=== PATIENT | female | born 1935 ===

== ENCOUNTER 2017-11-22 18:33 | Inpatient (IN) | payer MEDICARE ==
[2017-11-22 18:34] VITALS: BMI 31.2
[2017-11-22] MEDS ORDERED: Sodium Chloride 0.9% 1,000 ML IV ONE (19:29)
[2017-11-22 19:39] LABS: BASO # 0.2 K/uL (0.0-0.2); BASO % 2.7 % (0.0-2.0); EOS % 0.1 % (0.0-4.0); HEMOGLOBIN 11.5 g/dL (11.0-16.0); LYMPH # 0.8 K/uL (1.0-4.3); LYMPH % 12.1 % (20.0-40.0); MEAN CELL VOLUME 88.2 fL (81.0-99.0); MEAN CORPUSCULAR HEMOGLOBIN 29.6 pg (27.0-31.0); MEAN CORPUSCULAR HGB CONC 33.6 g/dL (33.0-37.0); MEAN PLATELET VOLUME 8.3 fL (7.2-11.7); MONO # 0.5 K/uL (0.0-0.8); MONO % 8.6 % (0.0-10.0); NEUT # 4.8 K/uL (1.8-7.0); NEUT % 76.5 % (50.0-75.0); NRBC % 0.1 % (0.0-2.0); RBC 3.88 Mil/uL (3.80-5.20); RED CELL DISTRIBUTION WIDTH 14.3 % (11.5-14.5); WHITE BLOOD COUNT 6.3 K/uL (4.8-10.8)
[2017-11-22] MEDS ORDERED: Sodium Chloride 0.9% 1,000 ML ONE ×2 (19:40→20:37)
[2017-11-22 19:46] LABS: INR 1.1; PROTHROMBIN TIME 12.3 SECONDS (9.7-12.2)
--- NOTE | 2017-11-22 19:48 | C.PDOC ---
History Of Present Illness 82yo female, presents to ED for evaluation after she has been having loose stools for the past 3 days. Per her daughters, when they went to visit the patient, she had 4-5 episodes of loose bowel movements within 2 hours of the visit. Patient denies any changes to her diet to help with the loose stools. She also reports pain to her left parasternal border which is worse with coughing, movement and better with staying still. She denies any abdominal pain , vomiting, or shortness of breath. No other complaints. Time Seen by Provider: 11/22/17 19:15 Chief Complaint (Nursing): GI Problem History Per: Patient, Family History/Exam Limitations: no limitations Onset/Duration Of Symptoms: Days Current Symptoms Are (Timing): Still Present Past Medical History Reviewed: Historical Data, Nursing Documentation, Vital Signs Vital Signs: Last Vital Signs Temp 98.3 F 11/22/17 18:43 Pulse 78 11/22/17 19:36 Resp 18 11/22/17 19:36 BP 115/52 L 11/22/17 19:36 Pulse Ox 98 11/22/17 20:36 - Medical History PMH: Anxiety, Bronchitis, COPD, Emphysema, HTN, Osteoporosis Denies: Chronic Kidney Disease Surgical History: - [facility] Procedures CENTRAL VENOUS CATHETER PLACEMENT WITH GUIDANCE (08/22/14) Family History: States: Diabetes - Social History Hx Tobacco Use: No Hx Alcohol Use: No Hx Substance Use: No - Immunization History Hx Tetanus Toxoid Vaccination: Yes Hx Influenza Vaccination: Yes Hx Pneumococcal Vaccination: No Review Of Systems Except As Marked, All Systems Reviewed And Found Negative. Constitutional: Negative for: Fever, Chills Cardiovascular: Positive for: Other (left parasternal border pain, worse with movement, cough and deep breathing) Respiratory: Negative for: Shortness of Breath Gastrointestinal: Positive for: Diarrhea. Negative for: Nausea, Vomiting, Abdominal Pain Physical Exam - Physical Exam Appears: Non-toxic, No Acute Distress Skin: Normal Color Head: Normacephalic Eye(s): bilateral: Normal Inspection Neck: Normal ROM, Supple Chest: Symmetrical, Tenderness (digitally reproducible left parasternal intercostal space T-4 tenderness.) Cardiovascular: Rhythm Regular Respiratory: Normal Breath Sounds Gastrointestinal/Abdominal: Bowel Sounds (hyperactive), Soft, No Tenderness, Other (obese abdomen) Extremity: Normal ROM Neurological/Psych: Oriented x3 ED Course And Treatment - Laboratory Results Result Diagrams: 11/22/17 19:34 11/22/17 19:34 Lab Interpretation: Abnormal (ua unable to provide, + significant creat increased from baseline 0.8) ECG: Interpreted By Me, Viewed By Me ECG Rhythm: Sinus Rhythm ECG Interpretation: Normal Rate From EC O2 Sat by Pulse Oximetry: 98 (RA) Pulse Ox Interpretation: Normal - Radiology CXR: Interpreted by Me CXR Interpretation: Yes: No Acute Disease - Other Rad abd x 2 X-Ray: Interpreted by Me (scant stool, no FA) Reevaluation Time: 21:22 Reassessment Condition: Improved - Physician Consult Information Outcome Of Conversation: 1929, [id number], d/w lor Oswald to med/surg Admit Medical Decision Making Medical Decision Making: Plan: -- Labs -- EKG -- IV Fluids -- C. Diff -- XR Abdomen obstructive series acute renal insufficiency- probably pre-renal LOW susp of C-diff colitis- no h/o same, and no colitis by labs (no leukocytosis ) Disposition Doctor Will See Patient In The: Hospital Counseled Patient/Family Regarding: Studies Performed, Diagnosis - Disposition Disposition: HOSPITALIZED Disposition Time: 21:24 Condition: GOOD Forms: [facility] ([place]) - Clinical Impression Clinical Impression: Diarrhea, Acute renal insufficiency - Scribe Statement The provider has reviewed the documentation as recorded by the Scribe (Robyn Gallardo) Provider Attestation: All medical record entries made by the Scribe were at my direction and personally dictated by me. I have reviewed the chart and agree that the record accurately reflects my personal performance of the history, physical exam, medical decision making, and the department course for this patient. I have also personally directed, reviewed, and agree with the discharge instructions and disposition.
[2017-11-22 19:51] LABS: ALB/GLOB RATIO 0.9 (1.0-2.1); ALBUMIN 3.7 g/dL (3.5-5.0); ALT/SGPT 26 U/L (9-52); AST/SGOT 49 U/L (14-36); BLOOD UREA NITROGEN 43 mg/dL (7-17); CALCIUM 8.4 mg/dl (8.6-10.4); GFR AFRICAN-AMERICAN 20; GFR NON-AFRICAN AMERICAN 17
[2017-11-22] MEDS: Sodium Chloride 0.9% 1,000 ML IV SCH (20:45)
[2017-11-22 21:42] LABS: SQUAMOUS EPITHIAL 7 /hpf (0-5); URINE BACTERIA RARE (<OCC); URINE BILIRUBIN NEGATIVE (NEGATIVE); URINE BLOOD 1+ (NEGATIVE); URINE CLARITY Hazy (Clear); URINE COLOR Yellow (YELLOW); URINE GLUCOSE (UA) NORMAL (Normal); URINE LEUKOCYTE ESTERASE 2+ Leu/uL (Negative); URINE PROTEIN 1+ mg/dL (NEGATIVE); URINE UROBILINOGEN NORMAL mg/dL (0.2-1.0)
[2017-11-22 22:47] VITALS: RESP 20
[2017-11-23] MEDS: Promethazine 12.5 mg/10 ml Syrup PO PRN ×3 (00:13→22:30)
[2017-11-23 06:07] LABS: EOS % 0.9 % (0.0-4.0); HEMOGLOBIN 10.4 g/dL (11.0-16.0); LYMPH # 1.4 K/uL (1.0-4.3); LYMPH % 30.3 % (20.0-40.0); MEAN CELL VOLUME 88.3 fL (81.0-99.0); MEAN CORPUSCULAR HEMOGLOBIN 29.6 pg (27.0-31.0); MEAN CORPUSCULAR HGB CONC 33.5 g/dL (33.0-37.0); MEAN PLATELET VOLUME 8.6 fL (7.2-11.7); MONO # 0.4 K/uL (0.0-0.8); MONO % 8.5 % (0.0-10.0); NEUT # 2.8 K/uL (1.8-7.0); NEUT % 59.3 % (50.0-75.0); NRBC % 0.2 % (0.0-2.0); RBC 3.5 Mil/uL (3.80-5.20); RED CELL DISTRIBUTION WIDTH 14.2 % (11.5-14.5); WHITE BLOOD COUNT 4.7 K/uL (4.8-10.8)
[2017-11-23] MEDS: Sodium Chloride 0.9% 1,000 ML IV SCH ×3 (06:58→16:45)
[2017-11-23 07:48] LABS: ALB/GLOB RATIO 0.9 (1.0-2.1); ALBUMIN 3.1 g/dL (3.5-5.0); CALCIUM 7.5 mg/dl (8.6-10.4)
[2017-11-23] MEDS ORDERED: Potassium Chloride 20 mEq ER Tab PO ONE (10:00)
[2017-11-23] MEDS ORDERED: Home Med 1 UNIT (Levocetirizine Dihydrochloride [Levocetirizine Dihydrochloride] 5 MG) PO SCH (10:00)
[2017-11-23] MEDS ORDERED: Home Med 1 UNIT (Ranitidine Hcl [Ranitidine Hcl] 150 MG) PO SCH (10:00)
[2017-11-23] MEDS ORDERED: Albuterol HFA 90 mcg/actuation (8 g) IH SCH (10:00)
[2017-11-23] MEDS ORDERED: metroNIDAZOLE IV 500 mg/100 ml 500 MG/100 ML BAG IVPB SCH (10:00)
--- NOTE | 2017-11-23 11:57 | CARD ---
APPROVED REPORT EKG Measurement Heart [id number] <Conclusion> Normal sinus rhythm Left axis deviation Possible Anterior infarct, age undetermined Abnormal ECG
[2017-11-23] MEDS ORDERED: Albuterol HFA 90 mcg/actuation (8 g) IH PRN (12:30)
--- NOTE | 2017-11-23 14:24 | RAD ---
PROCEDURE: Radiographs of the chest and abdomen (obstructive series) HISTORY: belly discomfort, diarrhea COMPARISON: Comparison made with chest radiograph 07/03/2017. TECHNIQUE: AP radiograph of the chest, with upright and supine radiographs of the abdomen. FINDINGS: CHEST: Lungs: Mild bibasilar atelectasis and or scarring changes. Developing infiltrates could be excluded followup radiographs. Additionally, the interstitial markings are slightly increased coarse within few scattered peribronchial cuffing changes. Rule out sequela of reactive/inflammatory airway disease or viral illness. Possibility of mild chronic compensated pulmonary edema not excluded. Cardiovascular: Heart remains enlarged. Pleura: No pleural fluid. No pneumothorax. Other findings: None. ABDOMEN AND PELVIS: Bowel: Unremarkable bowel gas pattern. No evidence of mechanical obstruction. Free air: None. Bones: Unremarkable. Other findings: None. IMPRESSION: Bibasilar atelectasis and or scarring changes; developing infiltrates could be excluded with followup radiographs. . Additionally, the interstitial markings are slightly increased coarse within few scattered peribronchial cuffing changes. Rule out sequela of reactive/inflammatory airway disease or viral illness. Possibility of mild chronic compensated pulmonary edema not excluded. No evidence of acute mechanical bowel obstruction.
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
[2017-11-23] MEDS: metroNIDAZOLE IV 500 mg/100 ml 500 MG/100 ML BAG IVPB SCH (22:06)
[2017-11-24 07:31] LABS: BASO % 0.4 % (0.0-2.0); EOS % 0.7 % (0.0-4.0); HEMOGLOBIN 10.2 g/dL (11.0-16.0); LYMPH # 1.2 K/uL (1.0-4.3); LYMPH % 26.6 % (20.0-40.0); MEAN CELL VOLUME 88.3 fL (81.0-99.0); MEAN CORPUSCULAR HEMOGLOBIN 29.8 pg (27.0-31.0); MEAN CORPUSCULAR HGB CONC 33.7 g/dL (33.0-37.0); MONO # 0.4 K/uL (0.0-0.8); MONO % 8.6 % (0.0-10.0); NEUT # 2.9 K/uL (1.8-7.0); NEUT % 63.7 % (50.0-75.0); RBC 3.42 Mil/uL (3.80-5.20); WHITE BLOOD COUNT 4.6 K/uL (4.8-10.8)
[2017-11-24 07:41] LABS: B-TYPE NATRIURETIC PEPTIDE 464 pg/mL (0-900)
[2017-11-24 07:53] LABS: ALB/GLOB RATIO 0.8 (1.0-2.1); ALBUMIN 2.9 g/dL (3.5-5.0); ALT/SGPT 18 U/L (9-52); AST/SGOT 35 U/L (14-36); BLOOD UREA NITROGEN 19 mg/dL (7-17); CALCIUM 7.9 mg/dl (8.6-10.4); GFR AFRICAN-AMERICAN > 60; GFR NON-AFRICAN AMERICAN 53
[2017-11-24] MEDS: Promethazine 12.5 mg/10 ml Syrup PO PRN ×2 (08:47→22:26)
[2017-11-24] MEDS ORDERED: Pneumococcal 23-Valent Vaccine IM ONE (10:00)
[2017-11-24] MEDS ORDERED: Enoxaparin 40 mg Syringe SC SCH ×2 (10:00)
[2017-11-24] MEDS: metroNIDAZOLE IV 500 mg/100 ml 500 MG/100 ML BAG IVPB SCH ×2 (11:34→22:27)
[2017-11-24] MEDS: Enoxaparin 30 mg Syringe SC SCH (11:37)
--- NOTE | 2017-11-24 13:28 | RAD ---
PROCEDURE: Left Knee Radiographs. HISTORY: Pain. No history of recent/ related trauma provided COMPARISON: None. FINDINGS: BONES: No acute fracture. Proliferative hypertrophic changes emanating from the femoral condyle and tibial plateau regions. JOINTS: Mild medial compartment narrowing. JOINT EFFUSION: None. OTHER FINDINGS: None. IMPRESSION: No acute findings related to/accounting for the clinical presentation.
[2017-11-25 08:05] LABS: SQUAMOUS EPITHIAL < 1 /hpf (0-5); URINE BACTERIA RARE (<OCC); URINE BILIRUBIN NEGATIVE (NEGATIVE); URINE BLOOD NEGATIVE (NEGATIVE); URINE CLARITY Clear (Clear); URINE COLOR Straw (YELLOW); URINE GLUCOSE (UA) NORMAL (Normal); URINE LEUKOCYTE ESTERASE 1+ Leu/uL (Negative); URINE PROTEIN NEGATIVE (NEGATIVE); URINE UROBILINOGEN NORMAL mg/dL (0.2-1.0)
[2017-11-25 08:21] LABS: FREE T4 1.45 ng/dL (0.78-2.19)
[2017-11-25] MEDS: Promethazine 12.5 mg/10 ml Syrup PO PRN (11:26)
[2017-11-25] MEDS: Enoxaparin 30 mg Syringe SC SCH (11:27)
[2017-11-25] MEDS: Sodium Chloride 0.9% 1,000 ML IV SCH ×2 (11:28→19:21)
[2017-11-25] MEDS: metroNIDAZOLE IV 500 mg/100 ml 500 MG/100 ML BAG IVPB SCH ×2 (11:29→21:21)
--- NOTE | 2017-11-25 12:01 | RAD ---
HISTORY: cough COMPARISON: Chest radiograph dated 07/03/2017 TECHNIQUE: Chest PA and lateral FINDINGS: LUNGS: Stable chronic prominence of the bilateral interstitial markings with superimposed pulmonary vascular congestion not excluded. No focal consolidation. PLEURA: No significant pleural effusion identified. No pneumothorax apparent. CARDIOVASCULAR: Atherosclerotic aortic calcifications. Cardiomediastinal silhouette stably prominent. OSSEOUS STRUCTURES: Unchanged. VISUALIZED UPPER ABDOMEN: Normal. OTHER FINDINGS: None. IMPRESSION: Stable chronic prominence of the bilateral interstitial markings with superimposed pulmonary vascular congestion not excluded. No focal consolidation or pleural effusion.
[2017-11-25] MEDS ORDERED: Albuterol 0.042% Inhal Sol (1.25 mg/3 mL) UD INH STA (16:17)
[2017-11-25] MEDS: Lidocaine 5% Patch TD SCH (17:00)
[2017-11-25] MEDS ORDERED: Albuterol 0.042% Inhal Sol (1.25 mg/3 mL) UD INH SCH ×2 (20:00→20:43)
[2017-11-25] MEDS ORDERED: MethylPREDNISolone 40 mg Vial IVP STA (20:41)
--- NOTE | 2017-11-25 20:56 | CP.PCM.PN ---
Subjective - Date & Time of Evaluation Date of Evaluation: 11/25/17 Time of Evaluation: 17:45 - Subjective Subjective: Pt noted to be coughing a lot as reported the family. Pt had not had fever, URI , lower resp track issues. Othwise, pt appeite fair, and couhing was intractble. > Pt had been started on metronidazole for her diarrhea and so far has had no loose BM. Objective - Vital Signs/Intake and Output Vital Signs (last 24 hours): Temp Pulse Resp BP Pulse Ox 97.4 F L 88 20 150/77 95 11/25/17 15:00 11/25/17 15:09 11/25/17 15:00 11/25/17 16:38 11/25/17 15:09 Intake and Output: 11/25/17 11/26/17 18:59 06:59 Intake Total 1000 Output Total 700 Balance 300 - Medications Medications: Current Medications Albuterol (Ventolin Hfa 90 Mcg/Actuation (8 G)) 1 puff IH Q6H PRN Albuterol Sulfate (Albuterol 0.042% Inhal Jennifer (1.25mg/3ml) Ud) 2.5 mg INH RQ6 CAS Enoxaparin Sodium (Lovenox) 30 mg SC DAILY [facility] Last Admin: 11/25/17 11:27 Dose: 30 mg Famotidine (Pepcid) 20 mg PO DAILY CAS Last Admin: 11/25/17 11:25 Dose: 20 mg Sodium Chloride (Sodium Chloride 0.9%) 1,000 mls @ 100 mls/hr IV .Q10H CAS Last Admin: 11/25/17 19:21 Dose: 100 mls/hr Metronidazole (Flagyl) 500 mg in 100 mls @ 100 mls/hr IVPB Q12H [facility] PRN Reason: Protocol Last Admin: 11/25/17 11:29 Dose: 100 mls/hr Azithromycin 500 mg/ Sodium (Chloride) 250 mls @ 100 mls/hr IVPB DAILY [facility] PRN Reason: Protocol Lidocaine (Lidoderm) 1 ea TD DAILY CAS Last Admin: 11/25/17 17:00 Dose: 1 ea Loratadine (Claritin) 10 mg PO DAILY [facility] Last Admin: 11/25/17 11:26 Dose: 10 mg Losartan Potassium (Cozaar) 100 mg PO DAILY [facility] Last Admin: 11/25/17 11:26 Dose: 100 mg Montelukast Sodium (Singulair) 10 mg PO HS CAS Last Admin: 11/24/17 22:27 Dose: 10 mg Paroxetine HCl (Paxil) 30 mg PO DAILY [facility] Last Admin: 11/25/17 11:27 Dose: 30 mg Promethazine HCl (Phenergan Syrup) 12.5 mg PO Q6 PRN PRN Reason: Cough Last Admin: 11/25/17 11:26 Dose: 12.5 mg Zolpidem Tartrate (Ambien) 5 mg PO HS PRN PRN Reason: Insomnia Last Admin: 11/23/17 22:51 Dose: 5 mg - Labs Labs: 11/24/17 07:07 11/24/17 07:07 PT 12.3 SECONDS (9.7-12.2) H 11/22/17 19:34 INR 1.1 11/22/17 19:34 APTT 25 SECONDS (21-34) 11/22/17 19:34 - Constitutional Appears: In Acute Distress - Head Exam Head Exam: NORMAL INSPECTION - Eye Exam Eye Exam: Normal appearance Pupil Exam: NORMAL ACCOMODATION - ENT Exam ENT Exam: Normal Exam Additional comments: congested nasally - Neck Exam Neck Exam: Normal Inspection - Respiratory Exam Respiratory Exam: Clear to Ausculation Bilateral - Cardiovascular Exam Cardiovascular Exam: REGULAR RHYTHM - GI/Abdominal Exam GI & Abdominal Exam: Normal Bowel Sounds - Rectal Exam Rectal Exam: Deferred - Extremities Exam Extremities Exam: Full ROM, Normal Capillary Refill, Normal Inspection, Tenderness (Right medial knee pain) - Back Exam Back Exam: NORMAL INSPECTION - Neurological Exam Neuro motor strength exam: Left Upper Extremity: 4, Right Upper Extremity: 4, Left Lower Extremity: 4, Right Lower Extremity: 3 - Psychiatric Exam Psychiatric exam: Normal Affect, Normal Mood - Skin Skin Exam: Dry, Intact, Normal Color, Pallor, Warm Assessment and Plan (1) Acute renal insufficiency Status: Resolved (2) Diarrhea Status: Resolved (3) Anxiety and depression Status: Chronic (4) Hypertension Status: Chronic
[2017-11-26] MEDS: Albuterol 0.042% Inhal Sol (1.25 mg/3 mL) UD INH SCH ×4 (01:22→19:26)
[2017-11-26] MEDS: Azithromycin 500 MG in Sodium Chloride 0.9% 250 ML IVPB SCH (09:25)
[2017-11-26] MEDS: Enoxaparin 30 mg Syringe SC SCH (09:26)
[2017-11-26] MEDS: metroNIDAZOLE IV 500 mg/100 ml 500 MG/100 ML BAG IVPB SCH ×2 (09:26→21:25)
[2017-11-26] MEDS: Lidocaine 5% Patch TD SCH (09:27)
[2017-11-26] MEDS: Promethazine 12.5 mg/10 ml Syrup PO PRN (11:00)
--- NOTE | 2017-11-26 12:48 | CP.PCM.PN ---
Subjective - Date & Time of Evaluation Date of Evaluation: 11/26/17 Time of Evaluation: 12:42 - Subjective Subjective: Reviewed events of today after seeing pt last night with wheezing. Pt refused neb treatment per nurse on duty today. Informed nurse of pulmonary status last night and importance of taking regular neb txs with beta-agonist and steroid. Nurse to relay my order to pt and resume neb txs. Objective - Vital Signs/Intake and Output Vital Signs (last 24 hours): Temp Pulse Resp BP Pulse Ox 98.5 F 69 20 134/71 96 11/26/17 07:28 11/26/17 07:28 11/26/17 07:28 11/26/17 07:28 11/26/17 07:28 Intake and Output: 11/26/17 11/26/17 06:59 18:59 Intake Total 1000 920 Output Total 900 600 Balance 100 320 - Medications Medications: Current Medications Albuterol (Ventolin Hfa 90 Mcg/Actuation (8 G)) 1 puff IH Q6H PRN Albuterol Sulfate (Albuterol 0.042% Inhal Jennifer (1.25mg/3ml) Ud) 2.5 mg INH RQ6 CAS Last Admin: 11/26/17 07:21 Dose: Not Given Budesonide (Pulmicort Respules) 0.5 mg INH RQ12 [facility] Enoxaparin Sodium (Lovenox) 30 mg SC DAILY [facility] Last Admin: 11/26/17 09:26 Dose: 30 mg Famotidine (Pepcid) 20 mg PO DAILY [facility] Last Admin: 11/26/17 09:25 Dose: 20 mg Metronidazole (Flagyl) 500 mg in 100 mls @ 100 mls/hr IVPB Q12H [facility] PRN Reason: Protocol Last Admin: 11/26/17 09:26 Dose: 100 mls/hr Azithromycin 500 mg/ Sodium (Chloride) 250 mls @ 100 mls/hr IVPB DAILY CAS PRN Reason: Protocol Last Admin: 11/26/17 09:25 Dose: 100 mls/hr Lidocaine (Lidoderm) 1 ea TD DAILY [facility] Last Admin: 11/26/17 09:27 Dose: 1 ea Loratadine (Claritin) 10 mg PO DAILY CAS Last Admin: 11/26/17 09:25 Dose: 10 mg Losartan Potassium (Cozaar) 100 mg PO DAILY CAS Last Admin: 11/26/17 09:25 Dose: 100 mg Montelukast Sodium (Singulair) 10 mg PO HS [facility] Last Admin: 11/25/17 21:20 Dose: 10 mg Paroxetine HCl (Paxil) 30 mg PO DAILY [facility] Last Admin: 11/26/17 09:25 Dose: 30 mg Prednisone (Prednisone Tab) 40 mg PO DAILY [facility] Promethazine HCl (Phenergan Syrup) 12.5 mg PO Q6 PRN PRN Reason: Cough Last Admin: 11/26/17 11:00 Dose: 12.5 mg Zolpidem Tartrate (Ambien) 5 mg PO HS PRN PRN Reason: Insomnia Last Admin: 11/23/17 22:51 Dose: 5 mg - Labs Labs: 11/24/17 07:07 11/24/17 07:07 PT 12.3 SECONDS (9.7-12.2) H 11/22/17 19:34 INR 1.1 11/22/17 19:34 APTT 25 SECONDS (21-34) 11/22/17 19:34 - Constitutional Appears: Well - Head Exam Head Exam: ATRAUMATIC, NORMAL INSPECTION, NORMOCEPHALIC - Eye Exam Eye Exam: EOMI, Normal appearance, PERRL Pupil Exam: NORMAL ACCOMODATION, PERRL - ENT Exam ENT Exam: Mucous Membranes Moist, Normal Exam - Neck Exam Neck Exam: Full ROM, Normal Inspection. absent: Lymphadenopathy - Respiratory Exam Respiratory Exam: Decreased Breath Sounds, Wheezes - Cardiovascular Exam Cardiovascular Exam: REGULAR RHYTHM, +S1, +S2. absent: Murmur - GI/Abdominal Exam GI & Abdominal Exam: Soft, Normal Bowel Sounds. absent: Tenderness - Rectal Exam Rectal Exam: Deferred - Extremities Exam Extremities Exam: Tenderness (Rt medial knee) - Back Exam Back Exam: NORMAL INSPECTION - Neurological Exam Neurological Exam: Alert, CN II-XII Intact, Oriented x3 Neuro motor strength exam: Left Upper Extremity: 4, Right Upper Extremity: 4, Left Lower Extremity: 4, Right Lower Extremity: 3 - Psychiatric Exam Psychiatric exam: Anxious (Seems sad for unknown cause), Flat Affect - Skin Skin Exam: Dry, Intact, Normal Color, Warm Assessment and Plan (1) COPD (chronic obstructive pulmonary disease) with acute bronchitis Assessment & Plan: Pt recovered well from her COPD exacerbation and gave strict instructions to useher nebulizer and other meds. Status: Chronic (2) Acute renal insufficiency Assessment & Plan: improved and had normalized. prob 2ndry to dehydration Status: Resolved (3) Anxiety and depression Assessment & Plan: on paroxetine 30 mg daily. continue Status: Chronic (4) Hypertension Assessment & Plan: start lasix, prob 2ndry to sodium retention Status: Chronic
[2017-11-26] MEDS: Budesonide 0.5 mg/2 ml Inhal Susp UD INH SCH (19:24)
[2017-11-27] MEDS: Promethazine 12.5 mg/10 ml Syrup PO PRN ×2 (01:24→15:17)
[2017-11-27] MEDS: Albuterol 0.042% Inhal Sol (1.25 mg/3 mL) UD INH SCH ×4 (01:50→19:16)
[2017-11-27 06:49] LABS: BASO % 0.2 % (0.0-2.0); EOS % 0.2 % (0.0-4.0); HEMOGLOBIN 9.6 g/dL (11.0-16.0); LYMPH # 1.3 K/uL (1.0-4.3); LYMPH % 16.5 % (20.0-40.0); MEAN CELL VOLUME 87.7 fL (81.0-99.0); MEAN CORPUSCULAR HEMOGLOBIN 29.8 pg (27.0-31.0); MEAN PLATELET VOLUME 9.1 fL (7.2-11.7); MONO # 0.6 K/uL (0.0-0.8); MONO % 7.6 % (0.0-10.0); NEUT # 6.1 K/uL (1.8-7.0); NEUT % 75.5 % (50.0-75.0); RBC 3.23 Mil/uL (3.80-5.20); RED CELL DISTRIBUTION WIDTH 14.4 % (11.5-14.5)
[2017-11-27 06:58] LABS: ALB/GLOB RATIO 0.8 (1.0-2.1); ALBUMIN 2.8 g/dL (3.5-5.0); ALT/SGPT 21 U/L (9-52); AST/SGOT 54 U/L (14-36); BLOOD UREA NITROGEN 13 mg/dL (7-17); CALCIUM 8.4 mg/dl (8.6-10.4); GFR AFRICAN-AMERICAN > 60; GFR NON-AFRICAN AMERICAN > 60
[2017-11-27] MEDS: Budesonide 0.5 mg/2 ml Inhal Susp UD INH SCH ×2 (07:19→19:16)
[2017-11-27] MEDS: metroNIDAZOLE IV 500 mg/100 ml 500 MG/100 ML BAG IVPB SCH ×2 (10:24→21:54)
[2017-11-27] MEDS: Enoxaparin 30 mg Syringe SC SCH (10:33)
[2017-11-27] MEDS: Lidocaine 5% Patch TD SCH (10:34)
[2017-11-27] MEDS: Azithromycin 500 MG in Sodium Chloride 0.9% 250 ML IVPB SCH (10:35)
[2017-11-27] MEDS: Potassium Chloride 20 mEq ER Tab PO SCH (18:55)
[2017-11-27] MEDS: MethylPREDNISolone 40 mg Vial IVP SCH (21:54)
[2017-11-28] MEDS: Albuterol 0.042% Inhal Sol (1.25 mg/3 mL) UD INH SCH ×4 (01:26→19:37)
[2017-11-28] MEDS: Budesonide 0.5 mg/2 ml Inhal Susp UD INH SCH ×2 (07:05→19:36)
[2017-11-28] MEDS: Promethazine 12.5 mg/10 ml Syrup PO PRN (08:33)
[2017-11-28] MEDS: metroNIDAZOLE IV 500 mg/100 ml 500 MG/100 ML BAG IVPB SCH (10:50)
[2017-11-28] MEDS: Potassium Chloride 20 mEq ER Tab PO SCH ×2 (10:51→17:47)
[2017-11-28] MEDS: Lidocaine 5% Patch TD SCH (10:51)
[2017-11-28] MEDS: Enoxaparin 30 mg Syringe SC SCH (10:51)
[2017-11-28] MEDS: MethylPREDNISolone 40 mg Vial IVP SCH ×2 (10:51→19:30)
[2017-11-29] MEDS: Albuterol 0.042% Inhal Sol (1.25 mg/3 mL) UD INH SCH ×3 (01:13→13:00)
[2017-11-29] MEDS: MethylPREDNISolone 40 mg Vial IVP SCH (05:38)
[2017-11-29] MEDS: Budesonide 0.5 mg/2 ml Inhal Susp UD INH SCH (07:44)
[2017-11-29 07:54] LABS: BASO % 0.1 % (0.0-2.0); HEMOGLOBIN 9.8 g/dL (11.0-16.0); LYMPH # 0.7 K/uL (1.0-4.3); LYMPH % 7.9 % (20.0-40.0); MEAN CELL VOLUME 88.5 fL (81.0-99.0); MEAN CORPUSCULAR HEMOGLOBIN 30.1 pg (27.0-31.0); MONO # 0.4 K/uL (0.0-0.8); MONO % 4.7 % (0.0-10.0); NEUT # 7.8 K/uL (1.8-7.0); NEUT % 87.3 % (50.0-75.0); PLATELET COUNT 295 K/uL (130-400); RBC 3.24 Mil/uL (3.80-5.20); RED CELL DISTRIBUTION WIDTH 14.6 % (11.5-14.5); WHITE BLOOD COUNT 8.9 K/uL (4.8-10.8)
[2017-11-29 08:20] LABS: ALB/GLOB RATIO 0.8 (1.0-2.1); ALBUMIN 2.8 g/dL (3.5-5.0); ALT/SGPT 39 U/L (9-52); AST/SGOT 57 U/L (14-36); BLOOD UREA NITROGEN 26 mg/dL (7-17); CALCIUM 8.4 mg/dl (8.6-10.4); GFR AFRICAN-AMERICAN > 60; GFR NON-AFRICAN AMERICAN 60
[2017-11-29 08:56] LABS: BANDS 1 % (0-2); LYMPHOCYTE 8 % (20-40); MONOCYTE 4 % (0-10); NEUTROPHIL 87 % (50-75); PLATELET ESTIMATE NORMAL (NORMAL); TOTAL CELLS COUNTED 100
[2017-11-29 08:57] LABS: ANISOCYTOSIS SLIGHT; GIANT PLATELETS PRESENT; HYPOCHROMIC SLIGHT; LARGE PLATELETS PRESENT; POLYCHROMIC SLIGHT
[2017-11-29 08:58] LABS: TOXIC GRANULATION PRESENT
[2017-11-29] MEDS: Lidocaine 5% Patch TD SCH (09:20)
[2017-11-29] MEDS: Promethazine 12.5 mg/10 ml Syrup PO PRN (09:21)
[2017-11-29] MEDS: Enoxaparin 30 mg Syringe SC SCH (09:21)
[2017-11-29] MEDS: Potassium Chloride 20 mEq ER Tab PO SCH (09:22)
--- NOTE | 2017-11-29 10:43 | CP.PCM.DIS ---
Provider - Provider Date of Admission: 11/22/17 21:25 Attending physician: Kevin Guajardo MD Primary care physician: Kevin Guajardo MD Consults: none Time Spent in preparation of Discharge (in minutes): 45 Diagnosis - Discharge Diagnosis (1) Acute renal insufficiency Status: Resolved (2) Diarrhea Status: Resolved (3) Anxiety and depression Status: Chronic Priority: Low (4) Hypertension Status: Chronic Priority: Medium (5) COPD (chronic obstructive pulmonary disease) with acute bronchitis Status: Chronic Comment: do your nebulizer treatments 2x a day when you do not have shortness of breath, and 4x a day when you are sick or short of breath. You may mix the Pulmicort (budesonide) with albuterol with your treatment every 12 hours. Hospital Course - Lab Results Lab Results: Micro Results 11/24/17 20:20 Urine,Clean Catch Urine Culture - Final No Growth (<1,000 CFU/ML) Most Recent Lab Values WBC 8.9 K/uL (4.8-10.8) 11/29/17 07:40 RBC 3.24 Mil/uL (3.80-5.20) L 11/29/17 07:40 Hgb 9.8 g/dL (11.0-16.0) L 11/29/17 07:40 Hct 28.7 % (34.0-47.0) L 11/29/17 07:40 MCV 88.5 fL (81.0-99.0) 11/29/17 07:40 MCH 30.1 pg (27.0-31.0) 11/29/17 07:40 MCHC 34.0 g/dL (33.0-37.0) 11/29/17 07:40 RDW 14.6 % (11.5-14.5) H 11/29/17 07:40 Plt Count 295 K/uL (130-400) 11/29/17 07:40 MPV 9.0 fL (7.2-11.7) 11/29/17 07:40 Neut % (Auto) 87.3 % (50.0-75.0) H 11/29/17 07:40 Lymph % (Auto) 7.9 % (20.0-40.0) L 11/29/17 07:40 Stark % (Auto) 4.7 % (0.0-10.0) 11/29/17 07:40 Eos % (Auto) 0.0 % (0.0-4.0) 11/29/17 07:40 Baso % (Auto) 0.1 % (0.0-2.0) 11/29/17 07:40 Neut # (Auto) 7.8 K/uL (1.8-7.0) H 11/29/17 07:40 Lymph # (Auto) 0.7 K/uL (1.0-4.3) L 11/29/17 07:40 Stark # (Auto) 0.4 K/uL (0.0-0.8) 11/29/17 07:40 Eos # (Auto) 0.0 K/uL (0.0-0.7) 11/29/17 07:40 Baso # (Auto) 0.0 K/uL (0.0-0.2) 11/29/17 07:40 Neutrophils % (Manual) 87 % (50-75) H 11/29/17 07:40 Band Neutrophils % 1 % (0-2) 11/29/17 07:40 Lymphocytes % (Manual) 8 % (20-40) L 11/29/17 07:40 Monocytes % (Manual) 4 % (0-10) 11/29/17 07:40 Toxic Granulation Present 11/29/17 07:40 Platelet Estimate Normal (NORMAL) 11/29/17 07:40 Large Platelets Present 11/29/17 07:40 Giant Platelets Present 11/29/17 07:40 Polychromasia Slight 11/29/17 07:40 Hypochromasia (manual) Slight 11/29/17 07:40 Anisocytosis (manual) Slight 11/29/17 07:40 PT 12.3 SECONDS (9.7-12.2) H 11/22/17 19:34 INR 1.1 11/22/17 19:34 APTT 25 SECONDS (21-34) 11/22/17 19:34 Sodium 141 mmol/L (132-148) 11/29/17 07:40 Potassium 4.8 mmol/L (3.6-5.2) 11/29/17 07:40 Chloride 105 mmol/L (98-107) 11/29/17 07:40 Carbon Dioxide 27 mmol/L (22-30) 11/29/17 07:40 Anion Gap 14 (10-20) 11/29/17 07:40 BUN 26 mg/dL (7-17) H 11/29/17 07:40 Creatinine 0.9 mg/dL (0.7-1.2) 11/29/17 07:40 Est GFR ( Amer) > 60 11/29/17 07:40 Est GFR (Non-Af Amer) 60 11/29/17 07:40 POC Glucose (mg/dL) 109 mg/dL (65-110) 11/23/17 11:18 Random Glucose 139 mg/dL (65-105) H 11/29/17 07:40 Calcium 8.4 mg/dl (8.6-10.4) L 11/29/17 07:40 Phosphorus 3.3 mg/dL (2.5-4.5) 11/27/17 06:24 Magnesium 1.2 mg/dL (1.6-2.3) L 11/27/17 06:24 Total Bilirubin 0.3 mg/dL (0.2-1.3) 11/29/17 07:40 AST 57 U/L (14-36) H 11/29/17 07:40 ALT 39 U/L (9-52) 11/29/17 07:40 Alkaline Phosphatase 54 U/L (38-126) 11/29/17 07:40 Troponin I < 0.0120 ng/mL (0.00-0.120) 11/22/17 19:34 NT-Pro-B Natriuret Pep 464 pg/mL (0-900) 11/24/17 07:07 Total Protein 6.3 g/dL (6.3-8.3) 11/29/17 07:40 Albumin 2.8 g/dL (3.5-5.0) L 11/29/17 07:40 Globulin 3.5 gm/dL (2.2-3.9) 11/29/17 07:40 Albumin/Globulin Ratio 0.8 (1.0-2.1) L 11/29/17 07:40 Free T4 1.45 ng/dL (0.78-2.19) 11/25/17 07:19 TSH 3rd Generation 2.19 mIU/L (0.46-4.68) 11/25/17 07:19 Urine Color Straw (YELLOW) 11/25/17 07:20 Urine Clarity Clear (Clear) 11/25/17 07:20 Urine pH 6.0 (5.0-8.0) 11/25/17 07:20 Ur Specific [place] 1.005 (1.003-1.030) 11/25/17 07:20 Urine Protein Negative mg/dL (NEGATIVE) 11/25/17 07:20 Urine Glucose (UA) Normal mg/dL (Normal) 11/25/17 07:20 Urine Ketones Negative mg/dL (NEGATIVE) 11/25/17 07:20 Urine Blood Negative (NEGATIVE) 11/25/17 07:20 Urine Nitrate Negative (NEGATIVE) 11/25/17 07:20 Urine Bilirubin Negative (NEGATIVE) 11/25/17 07:20 Urine Urobilinogen Normal mg/dL (0.2-1.0) 11/25/17 07:20 Ur Leukocyte Esterase 1+ Richard/uL (Negative) H 11/25/17 07:20 Urine WBC (Auto) 1 /hpf (0-5) 11/25/17 07:20 Urine RBC (Auto) 1 /hpf (0-3) 11/25/17 07:20 Ur Squamous Epith Cells < 1 /hpf (0-5) 11/25/17 07:20 Urine Bacteria Rare (<OCC) 11/25/17 07:20 Hyaline Casts 3-5 /lpf (0-2) H 11/22/17 21:34 - Hospital Course Hospital Course: Pt was originally brought in by pt's 2 daughters after they found out that pt had been having diarrhea x 4 in a 2 hour period. Pt admitted that she had been having this for a week. Because she lacked appetite, she didn't eat nor drink. Because she look ed worn and harggard, daughters brought pt to the ER for eval. Pt was found to be in acute renal failure and subsequently admitted. > While inpatient, pt developed intractable coughing on day 2, which eventually resulted in wheezing, shortness of breath, and increasing aggravation. Pt was put on IV steroids from an initial taper, and kept on it until shegradually improved.. There was a morning when pt refused the neb t, x, but explaining to her the reason for the nebulization, pt acquiesced. Pt gradually improved over the next few days with steadily decreasing cough, and increasing appetite. sPt was discharged home under the care of her daughters and grandchildren. Discharge Exam - Head Exam Head Exam: NORMAL INSPECTION - Eye Exam Eye Exam: EOMI, Normal appearance, PERRL Pupil Exam: NORMAL ACCOMODATION, PERRL - GI/Abdominal Exam GI & Abdominal Exam: Normal Bowel Sounds - Rectal Exam Rectal Exam: NORMAL INSPECTION - Exam Exam: Circumcision, NORMAL INSPECTION External exam: NORMAL EXTERNAL EXAM Speculum exam: NORMAL SPECULUM EXAM Bimanual exam: NORMAL BIMANUAL EXAM - Neurological Exam Neurological exam: Alert, CN II-XII Intact, Normal Gait, Oriented x3, Reflexes Normal - Psychiatric Exam Psychiatric exam: Normal Affect, Normal Mood - Skin Skin Exam: Dry, Intact, Normal Color, Warm Discharge Plan - Discharge Medications Prescriptions: Lidocaine 5% [Lidoderm] 1 ea TD DAILY PRN 30 Days #30 patch PRN Reason: moderate to severe knee pain Budesonide [Pulmicort Respules] 0.5 mg INH RQ12 30 Days #60 neb - Follow Up Plan Condition: GOOD Disposition: HOME/ ROUTINE Patient education suggested?: No Instructions: Diarrhea in Adolescents and Adults, Acute Bronchitis, Adult (DC) , Zolpidem, Budesonide (Oral Inhalation), Acute Kidney Injury (DC) Additional Instructions: 1. I will see you Thursday at 1 pm for follow, or at a day we agree on on discharge today. 2. Pls take your zolpidem as you did at the hospital so that you can sleep well. 3. If you have any questions, especially after hours, please call my office number and leave a message. 4. Aside from zolpidem, all other meds will be sent from the office. Referrals: Kevin Guajardo MD [Staff Provider] -
--- NOTE | 2017-11-29 11:16 | CP.PCM.PN ---
Subjective - Date & Time of Evaluation Date of Evaluation: 11/27/17 Time of Evaluation: 13:20 - Subjective Subjective: Pt noted to have increasing wheezing last night and started ov IV steroids. Pt had also slept well last night with intensified neb txs which allowed her to breathe better. Pt in good spirits today, and didn't look as tired as she had the previous days. > Reviewed labs, pt had developed hypokalemia and needed to be repleted. Ok'd orders by [employer] PATHOLOGIST and legnthened time of administration. Will follow and d/c when normal. Pt asymptomatic re: hypokalemia. > Repeat UA yesterday showed clearing of pt's urine, with no evident signs of infection. Objective - Vital Signs/Intake and Output Vital Signs (last 24 hours): Temp Pulse Resp BP Pulse Ox 97.8 F 70 20 153/75 H 95 11/29/17 08:00 11/29/17 08:00 11/29/17 08:00 11/29/17 09:22 11/29/17 08:00 Intake and Output: 11/29/17 11/29/17 06:59 18:59 Intake Total 0 Balance 0 - Medications Medications: Current Medications Albuterol (Ventolin Hfa 90 Mcg/Actuation (8 G)) 1 puff IH Q6H PRN Albuterol Sulfate (Albuterol 0.042% Inhal Jennifer (1.25mg/3ml) Ud) 2.5 mg INH RQ6 [facility] Last Admin: 11/29/17 07:43 Dose: 1.25 mg Budesonide (Pulmicort Respules) 0.5 mg INH RQ12 [facility] Last Admin: 11/29/17 07:44 Dose: Not Given Enoxaparin Sodium (Lovenox) 30 mg SC DAILY [facility] Last Admin: 11/29/17 09:21 Dose: 30 mg Famotidine (Pepcid) 20 mg PO DAILY [facility] Last Admin: 11/29/17 09:21 Dose: 20 mg Furosemide (Lasix) 20 mg PO DAILY [facility] Last Admin: 11/29/17 09:22 Dose: 20 mg Lidocaine (Lidoderm) 1 ea TD DAILY [facility] Last Admin: 11/29/17 09:20 Dose: 1 ea Loratadine (Claritin) 10 mg PO DAILY [facility] Last Admin: 11/29/17 09:21 Dose: 10 mg Losartan Potassium (Cozaar) 100 mg PO DAILY [facility] Last Admin: 11/29/17 09:21 Dose: 100 mg Methylprednisolone (Solu-Medrol) 20 mg IVP Q12H [facility] Last Admin: 11/29/17 05:38 Dose: 20 mg Montelukast Sodium (Singulair) 10 mg PO HS [facility] Last Admin: 11/28/17 21:30 Dose: 10 mg Paroxetine HCl (Paxil) 30 mg PO DAILY [facility] Last Admin: 11/29/17 09:21 Dose: 30 mg Potassium Chloride (K-Dur 20 Meq Er Tab) 20 meq PO BID [facility] Last Admin: 11/29/17 09:22 Dose: Not Given Promethazine HCl (Phenergan Syrup) 12.5 mg PO Q6 PRN PRN Reason: Cough Last Admin: 11/29/17 09:21 Dose: 12.5 mg Zolpidem Tartrate (Ambien) 5 mg PO HS PRN PRN Reason: Insomnia Last Admin: 11/28/17 21:34 Dose: 5 mg - Labs Labs: 11/29/17 07:40 11/29/17 07:40 PT 12.3 SECONDS (9.7-12.2) H 11/22/17 19:34 INR 1.1 11/22/17 19:34 APTT 25 SECONDS (21-34) 11/22/17 19:34 - Constitutional Appears: Well - Head Exam Head Exam: ATRAUMATIC, NORMAL INSPECTION, NORMOCEPHALIC - Eye Exam Eye Exam: EOMI, Normal appearance, PERRL - ENT Exam ENT Exam: Mucous Membranes Moist, Normal Exam - Neck Exam Neck Exam: Full ROM, Normal Inspection. absent: Lymphadenopathy - Respiratory Exam Respiratory Exam: Clear to Ausculation Bilateral, NORMAL BREATHING PATTERN - Cardiovascular Exam Cardiovascular Exam: REGULAR RHYTHM, +S1, +S2. absent: Murmur - GI/Abdominal Exam GI & Abdominal Exam: Soft, Normal Bowel Sounds. absent: Tenderness - Rectal Exam Rectal Exam: Deferred - Back Exam Back Exam: NORMAL INSPECTION - Neurological Exam Neurological Exam: Alert, Awake, CN II-XII Intact, Normal Gait, Oriented x3 Neuro motor strength exam: Left Upper Extremity: 4, Right Upper Extremity: 4, Left Lower Extremity: 4, Right Lower Extremity: 3 - Psychiatric Exam Psychiatric exam: Normal Affect, Normal Mood - Skin Skin Exam: Dry, Intact, Normal Color, Warm Assessment and Plan (1) COPD (chronic obstructive pulmonary disease) with acute bronchitis Assessment & Plan: ongoing and slightly iimproved from last night, though still with wheezing Status: Chronic (2) Anxiety and depression Assessment & Plan: had been recurring but mostly under control. Status: Chronic (3) Hypertension Assessment & Plan: expected to increase with IV steroids. Status: Chronic
--- NOTE | 2017-11-29 11:35 | CP.PCM.PN ---
Subjective - Date & Time of Evaluation Date of Evaluation: 11/28/17 Time of Evaluation: 06:30 - Subjective Subjective: Pt seen and examined at bedside. Looks more energetic, rings around the eyes has almost disappeared. Had gotten her sleeping medication and rested well last night. No complaints, and thoughtout the whole visit, pt did not cough once. Says she feels better than when she went in. > Advised pt she will be going home tomorrow. Objective - Vital Signs/Intake and Output Vital Signs (last 24 hours): Temp Pulse Resp BP Pulse Ox 97.8 F 70 20 153/75 H 95 11/29/17 08:00 11/29/17 08:00 11/29/17 08:00 11/29/17 09:22 11/29/17 08:00 Intake and Output: 11/29/17 11/29/17 06:59 18:59 Intake Total 0 Balance 0 - Medications Medications: Current Medications Albuterol (Ventolin Hfa 90 Mcg/Actuation (8 G)) 1 puff IH Q6H PRN Albuterol Sulfate (Albuterol 0.042% Inhal Jennifer (1.25mg/3ml) Ud) 2.5 mg INH RQ6 [facility] Last Admin: 11/29/17 07:43 Dose: 1.25 mg Budesonide (Pulmicort Respules) 0.5 mg INH RQ12 [facility] Last Admin: 11/29/17 07:44 Dose: Not Given Enoxaparin Sodium (Lovenox) 30 mg SC DAILY [facility] Last Admin: 11/29/17 09:21 Dose: 30 mg Famotidine (Pepcid) 20 mg PO DAILY [facility] Last Admin: 11/29/17 09:21 Dose: 20 mg Furosemide (Lasix) 20 mg PO DAILY [facility] Last Admin: 11/29/17 09:22 Dose: 20 mg Lidocaine (Lidoderm) 1 ea TD DAILY [facility] Last Admin: 11/29/17 09:20 Dose: 1 ea Loratadine (Claritin) 10 mg PO DAILY [facility] Last Admin: 11/29/17 09:21 Dose: 10 mg Losartan Potassium (Cozaar) 100 mg PO DAILY [facility] Last Admin: 11/29/17 09:21 Dose: 100 mg Methylprednisolone (Solu-Medrol) 20 mg IVP Q12H [facility] Last Admin: 11/29/17 05:38 Dose: 20 mg Montelukast Sodium (Singulair) 10 mg PO HS [facility] Last Admin: 11/28/17 21:30 Dose: 10 mg Paroxetine HCl (Paxil) 30 mg PO DAILY [facility] Last Admin: 11/29/17 09:21 Dose: 30 mg Potassium Chloride (K-Dur 20 Meq Er Tab) 20 meq PO BID [facility] Last Admin: 11/29/17 09:22 Dose: Not Given Promethazine HCl (Phenergan Syrup) 12.5 mg PO Q6 PRN PRN Reason: Cough Last Admin: 11/29/17 09:21 Dose: 12.5 mg Zolpidem Tartrate (Ambien) 5 mg PO HS PRN PRN Reason: Insomnia Last Admin: 11/28/17 21:34 Dose: 5 mg - Labs Labs: 11/29/17 07:40 11/29/17 07:40 PT 12.3 SECONDS (9.7-12.2) H 11/22/17 19:34 INR 1.1 11/22/17 19:34 APTT 25 SECONDS (21-34) 11/22/17 19:34 - Constitutional Appears: Well - Head Exam Head Exam: ATRAUMATIC, NORMAL INSPECTION, NORMOCEPHALIC - Eye Exam Eye Exam: EOMI, Normal appearance, PERRL Pupil Exam: NORMAL ACCOMODATION, PERRL - ENT Exam ENT Exam: Mucous Membranes Moist, Normal Exam - Neck Exam Neck Exam: Full ROM, Normal Inspection. absent: Lymphadenopathy - Respiratory Exam Respiratory Exam: Clear to Ausculation Bilateral, NORMAL BREATHING PATTERN - Cardiovascular Exam Cardiovascular Exam: REGULAR RHYTHM, +S1, +S2. absent: Murmur - GI/Abdominal Exam GI & Abdominal Exam: Soft, Normal Bowel Sounds. absent: Tenderness - Rectal Exam Rectal Exam: Deferred Assessment and Plan (1) COPD (chronic obstructive pulmonary disease) with acute bronchitis Status: Chronic (2) Acute renal insufficiency Status: Resolved (3) Anxiety and depression Status: Chronic (4) Hypertension Status: Chronic
[2017-11-29] MEDS ORDERED: Naproxen 550 mg Tab PO PRN (12:40)
[2017-11-29 16:14] VITALS: BP 153/68; PULSE 67; TEMP 97.3; O2SAT 96
[2017-12-06] MEDS ORDERED: Home Med 1 UNIT (Alendronate [Fosamax] 70 MG) PO SCH (10:00)
== END 2017-11-29 17:02 | disposition home or self-care (01) | DRG 683 ==
LOC: C.ER 18:33 → C.9E 21:25 → C.3T 21:52
PROVIDERS: ADMIT Family Medicine; ATTEND Family Medicine
DX: N17.9 Acute kidney failure, unspecified (principal); J44.0 Chronic obstructive pulmonary disease with (acute) lower respiratory infection; E86.0 Dehydration; E87.6 Hypokalemia; F32.9 Major depressive disorder, single episode, unspecified; F41.9 Anxiety disorder, unspecified; I10 Essential (primary) hypertension; J20.9 Acute bronchitis, unspecified; M81.0 Age-related osteoporosis without current pathological fracture; Z87.440 Personal history of urinary (tract) infections; R19.7 Diarrhea, unspecified

== ENCOUNTER 2018-03-28 22:22 | Inpatient (IN) | payer MEDICARE ==
[2018-03-28 22:22] VITALS: BMI 31.2
[2018-03-28] MEDS ORDERED: Albuterol 0.083% Inhal Sol (2.5 mg/3 mL) UD IH STA (22:44)
[2018-03-28] MEDS ORDERED: Albuterol-Ipratrop 3 mg / 0.5 (3 ml) UD IH STA (22:44)
--- NOTE | 2018-03-28 22:44 | C.PDOC ---
History Of Present Illness 82 year old female with PMHx of COPD, emphysema is brought in to the ED by her daughter for evaluation of worsening SOB, productive cough with white phlegm since Thursday. Patient's daughter states she has been using her inhalers with no relief. As per Patient's daughter today she looked pale and seemed more tachypnic than usual. She was dizzy with vertigo several days ago. Upon examination patient looks to be in no acute distress but her O2 saturation was 87%. Patient able to speak in full sentences. Patient denies fever,chills, CP, nausea, weakness, numbness. Time Seen by Provider: 03/28/18 22:37 Chief Complaint (Nursing): Shortness Of Breath History Per: Patient, Family History/Exam Limitations: no limitations Onset/Duration Of Symptoms: Days Current Symptoms Are (Timing): Still Present Initiating Event: Upper Respiratory Illness Quality: Other Exacerbating Factor(s): Coughing Current Respiratory Medications: See Home Med List Associated Symptoms: Productive Cough Recent travel outside of the [place]: No Additional History Per: Patient, Family Past Medical History Reviewed: Historical Data, Nursing Documentation, Vital Signs Vital Signs: Last Vital Signs Temp 98 F 03/28/18 22:30 Pulse 106 H 03/28/18 22:30 Resp 30 H 03/28/18 22:56 BP 165/86 H 03/28/18 22:30 Pulse Ox 94 L 03/28/18 22:56 - Medical History PMH: Anxiety, Arthritis (L KNEE), Bronchitis, COPD, Emphysema, HTN, Osteoporosis Denies: Chronic Kidney Disease Surgical History: - [facility] Procedures CENTRAL VENOUS CATHETER PLACEMENT WITH GUIDANCE (08/22/14) Family History: States: Diabetes - Social History Hx Tobacco Use: No Hx Alcohol Use: No Hx Substance Use: No - Immunization History Hx Tetanus Toxoid Vaccination: Yes Hx Influenza Vaccination: Yes Hx Pneumococcal Vaccination: Yes Review Of Systems Constitutional: Negative for: Fever, Chills Cardiovascular: Negative for: Chest Pain Respiratory: Positive for: Cough, Shortness of Breath, Sputum Gastrointestinal: Negative for: Nausea, Vomiting Skin: Negative for: Rash Neurological: Positive for: Dizziness. Negative for: Weakness, Numbness, Headache Physical Exam - Physical Exam Appears: Non-toxic, No Acute Distress Skin: Warm, Dry, Pale Head: Atraumatic, Normacephalic Eye(s): bilateral: Normal Inspection Oral Mucosa: Moist Neck: Normal ROM, Supple Chest: Symmetrical Cardiovascular: Rhythm Regular (tachycardic) Respiratory: Rhonchi (coarse bilateral), Wheezing (expiratory), Other (speaking in full sentences) Gastrointestinal/Abdominal: Soft, No Tenderness, No Guarding, No Rebound Extremity: Normal ROM, No Tenderness, No Swelling Neurological/Psych: Oriented x3, Normal Speech, Normal Cognition Gait: Steady ED Course And Treatment - Laboratory Results Result Diagrams: 03/28/18 22:48 03/28/18 22:48 Lab Interpretation: Abnormal (BUN 23, normal BNP, and troponin, PO2 125 on 3L) ECG: Interpreted By Ny ECG Rhythm: Sinus Rhythm (with poor R wave progression to V6) ECG Interpretation: Abnormal O2 Sat by Pulse Oximetry: 92 Pulse Ox Interpretation: Abnormal - Radiology CXR: Interpreted by Me CXR Interpretation: Yes: Infiltrates (bilateral) Reevaluation Time: 23:25 Reassessment Condition: Improved - Physician Consult Information Time Consulting Physician Contacted: 23:25 Physician Contacted: Kevin Guajardo Outcome Of Conversation: Patient to be admitted for exacerbation of COPD with chronic bronchitis. Medical Decision Making Medical Decision Making: Impression: worsening SOB since Thursday Plan: * ABG * EKG * CXR * Labs * Albuterol 2.5 mg IH * Duoneb 3.5 mg IH * Solumedrol 125 mg IVP * Blood culture Disposition - Disposition Referrals: Kevin Guajardo MD [Primary Care Provider] - Disposition: HOSPITALIZED Disposition Time: 23:26 Condition: IMPROVED - POA Present On Arrival: None - Clinical Impression Clinical Impression: COPD (chronic obstructive pulmonary disease) with acute bronchitis, Dyspnea - Scribe Statement The provider has reviewed the documentation as recorded by the Scribe Crescencio Solis All medical record entries made by the Scribe were at my direction and personally dictated by me. I have reviewed the chart and agree that the record accurately reflects my personal performance of the history, physical exam, medical decision making, and the department course for this patient. I have also personally directed, reviewed, and agree with the discharge instructions and disposition.
[2018-03-28 22:50] LABS: BASO # 0.1 K/uL (0.0-0.2); BASO % 0.7 % (0.0-2.0); EOS # 0.4 K/uL (0.0-0.7); EOS % 3.9 % (0.0-4.0); HEMOGLOBIN 11.7 g/dL (11.0-16.0); LYMPH % 18.8 % (20.0-40.0); MEAN CELL VOLUME 85.4 fL (81.0-99.0); MEAN CORPUSCULAR HEMOGLOBIN 28.5 pg (27.0-31.0); MEAN CORPUSCULAR HGB CONC 33.3 g/dL (33.0-37.0); MEAN PLATELET VOLUME 7.7 fL (7.2-11.7); MONO # 0.7 K/uL (0.0-0.8); NEUT # 7.4 K/uL (1.8-7.0); NEUT % 69.6 % (50.0-75.0); NRBC % 0.1 % (0.0-2.0); RBC 4.09 Mil/uL (3.80-5.20); RED CELL DISTRIBUTION WIDTH 15.7 % (11.5-14.5); WHITE BLOOD COUNT 10.6 K/uL (4.8-10.8)
[2018-03-28] MEDS ORDERED: Albuterol-Ipratrop 3 mg / 0.5 (3 ml) UD ONE (22:50)
[2018-03-28 23:03] LABS: ALB/GLOB RATIO 1.1 (1.0-2.1); ALT/SGPT 19 U/L (9-52); AST/SGOT 22 U/L (14-36); BLOOD UREA NITROGEN 23 mg/dL (7-17); CALCIUM 9.4 mg/dl (8.6-10.4); GFR AFRICAN-AMERICAN 52; GFR NON-AFRICAN AMERICAN 43
[2018-03-28 23:06] LABS: ABG ALLEN TEST POS; ARTERIAL BLOOD GAS HCO3 25.6 mmol/L (21-28); ARTERIAL BLOOD GAS O2 SAT 98.6 % (95-98); ARTERIAL BLOOD GAS PCO2 39 mm/Hg (35-45); ARTERIAL BLOOD GAS PH 7.42 (7.35-7.45); ARTERIAL BLOOD GAS PO2 125 mm/Hg (80-100); ARTERIAL BLOOD GAS TCO2 26.5 mmol/L (22-28)
[2018-03-28 23:14] LABS: B-TYPE NATRIURETIC PEPTIDE 241 pg/mL (0-900)
[2018-03-29] MEDS: Albuterol 0.083% Inhal Sol (2.5 mg/3 mL) UD INH SCH ×3 (07:40→20:48)
[2018-03-29] MEDS: Budesonide 0.5 mg/2 ml Inhal Susp UD INH SCH ×2 (07:40→20:48)
--- NOTE | 2018-03-29 09:32 | RAD ---
Date of service: 03/28/2018 PROCEDURE: CHEST RADIOGRAPH, 1 VIEW HISTORY: SOB COMPARISON: 02/15/2018 FINDINGS: LUNGS: Patchy opacities at lung bases, nonspecific. Mildly increased compared to prior examination. This may reflect pneumonia and followup is advised. PLEURA: No pneumothorax or pleural fluid seen. CARDIOVASCULAR: Normal. OSSEOUS STRUCTURES: No significant abnormalities. VISUALIZED UPPER ABDOMEN: Normal. OTHER FINDINGS: None. IMPRESSION: Patchy opacities at both lung bases. Possible pneumonia. Followup advised.
[2018-03-29] MEDS: Naproxen 275 mg Tab PO SCH ×2 (10:19→18:29)
[2018-03-29] MEDS: Enoxaparin 30 mg Syringe SC SCH (10:20)
--- NOTE | 2018-03-29 14:28 | RAD ---
Date of service: 03/29/2018 HISTORY: SOB, FOLLOW UP COMPARISON: Comparison chest dated 03/28/2018. TECHNIQUE: Chest PA and lateral FINDINGS: LUNGS: Re- demonstrated are patchy opacities seen throughout both mid to lower lung zones all which could represent pneumonia. Clinical correlation recommended. PLEURA: No significant pleural effusion identified. No pneumothorax apparent. CARDIOVASCULAR: Cardiomegaly unchanged OSSEOUS STRUCTURES: No significant abnormalities. VISUALIZED UPPER ABDOMEN: Normal. OTHER FINDINGS: None. IMPRESSION: Patchy bilateral mid to lower lobe infiltrates. Cardiomegaly.
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
[2018-03-29] MEDS: Azithromycin 500 MG in Sodium Chloride 0.9% 250 ML IVPB SCH (20:56)
[2018-03-29] MEDS: MethylPREDNISolone 40 mg Vial IV SCH (22:13)
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
--- NOTE | 2018-03-30 | CARD ---
APPROVED REPORT Date of service: 03/28/2018 EKG Measurement Heart [id number] <Conclusion> Normal sinus rhythm Possible Left atrial enlargement Left anterior fascicular block Possible Lateral infarct, age undetermined Abnormal ECG
[2018-03-30] MEDS: Albuterol 0.083% Inhal Sol (2.5 mg/3 mL) UD INH SCH ×3 (03:05→13:30)
[2018-03-30] MEDS: Budesonide 0.5 mg/2 ml Inhal Susp UD INH SCH (07:52)
[2018-03-30] MEDS: Naproxen 275 mg Tab PO SCH ×2 (09:16→17:57)
[2018-03-30] MEDS: Enoxaparin 30 mg Syringe SC SCH (09:18)
[2018-03-30] MEDS: MethylPREDNISolone 40 mg Vial IV SCH ×2 (14:21→21:53)
--- NOTE | 2018-03-30 15:21 | CP.PCM.PN ---
Subjective - Date & Time of Evaluation Date of Evaluation: 03/30/18 Time of Evaluation: 09:00 - Subjective Subjective: patient seen and examined Cough and shortness of breath much improved Afebrile No chest pain Objective - Vital Signs/Intake and Output Vital Signs (last 24 hours): Temp Pulse Resp BP Pulse Ox 97.3 F L 89 20 137/82 95 03/30/18 07:00 03/30/18 07:00 03/30/18 07:00 03/30/18 11:08 03/30/18 07:00 Intake and Output: 03/30/18 03/30/18 06:59 18:59 Intake Total 350 850 Balance 350 850 - Medications Medications: Current Medications Albuterol Sulfate (Albuterol 0.083% Inhal Jennifer (2.5 Mg/3 Ml) Ud) 2.5 mg INH RQ6 [facility] Last Admin: 03/30/18 13:30 Dose: 2.5 mg Budesonide (Pulmicort Respules) 0.5 mg INH RQ12 [facility] Last Admin: 03/30/18 07:52 Dose: 0.5 mg Enoxaparin Sodium (Lovenox) 30 mg SC DAILY [facility] Last Admin: 03/30/18 09:18 Dose: 30 mg Famotidine (Pepcid) 20 mg PO BID [facility] Last Admin: 03/30/18 09:16 Dose: 20 mg Furosemide (Lasix) 10 mg IVP DAILY [facility] Last Admin: 03/30/18 09:16 Dose: 10 mg Ceftriaxone Sodium 1 gm/ (Sodium Chloride) 100 mls @ 100 mls/hr IVPB Q24H [facility] PRN Reason: Protocol Last Admin: 03/29/18 18:30 Dose: 100 mls/hr Azithromycin 500 mg/ Sodium (Chloride) 250 mls @ 250 mls/hr IVPB Q24H [facility] PRN Reason: Protocol Last Admin: 03/29/18 20:56 Dose: 250 mls/hr Loratadine (Claritin) 10 mg PO DAILY [facility] Last Admin: 03/30/18 09:16 Dose: 10 mg Losartan Potassium (Cozaar) 100 mg PO DAILY [facility] Last Admin: 03/30/18 09:16 Dose: 100 mg Methylprednisolone (Solu-Medrol) 40 mg IV Q8 [facility] Last Admin: 03/30/18 14:21 Dose: 40 mg Montelukast Sodium (Singulair) 10 mg PO [facility] Naproxen (Anaprox) 275 mg PO BID [facility] Last Admin: 03/30/18 09:16 Dose: 275 mg Paroxetine HCl (Paxil) 30 mg PO DAILY [facility] Last Admin: 03/30/18 09:16 Dose: 30 mg Zolpidem Tartrate (Ambien) 5 mg PO [facility] Last Admin: 03/29/18 22:13 Dose: 5 mg - Labs Labs: 03/28/18 22:48 03/28/18 22:48 - Head Exam Head Exam: ATRAUMATIC, NORMOCEPHALIC - ENT Exam ENT Exam: Mucous Membranes Moist - Neck Exam Neck Exam: Normal Inspection - Respiratory Exam Respiratory Exam: Rales - Cardiovascular Exam Cardiovascular Exam: REGULAR RHYTHM - GI/Abdominal Exam GI & Abdominal Exam: Soft, Normal Bowel Sounds - Extremities Exam Extremities Exam: Pedal Edema Assessment and Plan (1) COPD with exacerbation Assessment & Plan: continue nebulizer treatment and steroids Status: Acute (2) Community acquired pneumonia Assessment & Plan: on IV antibiotics Clinically improving Follow-up culture and sensitivity Status: Acute
[2018-03-30] MEDS: Azithromycin 500 MG in Sodium Chloride 0.9% 250 ML IVPB SCH (20:34)
--- NOTE | 2018-03-31 00:17 | CP.PCM.PN ---
Subjective - Date & Time of Evaluation Date of Evaluation: 03/30/18 Time of Evaluation: 19:10 - Subjective Subjective: Pt seen at bedside, doing clinically better and rested. Large dark circles around her eyes are almost gone. Did not notice patient to be coughing at all, unlike the previous day when pt would cough after every few breaths. Relates that she walked all around the floor but tired easily. O2 sat from PT notes placed it at < 89 through pre and post activity. Definitely some obstructive process still in play. Will continue to monitor. Objective - Vital Signs/Intake and Output Vital Signs (last 24 hours): Temp Pulse Resp BP Pulse Ox 97.7 F 102 H 20 148/74 94 L 03/30/18 15:22 03/30/18 21:56 03/30/18 21:56 03/30/18 21:56 03/30/18 15:22 Intake and Output: 03/30/18 03/31/18 18:59 06:59 Intake Total 850 Balance 850 - Medications Medications: Current Medications Albuterol Sulfate (Albuterol 0.083% Inhal Jennifer (2.5 Mg/3 Ml) Ud) 2.5 mg INH RQ6 [facility] Last Admin: 03/30/18 13:30 Dose: 2.5 mg Budesonide (Pulmicort Respules) 0.5 mg INH RQ12 [facility] Last Admin: 03/30/18 07:52 Dose: 0.5 mg Enoxaparin Sodium (Lovenox) 30 mg SC DAILY [facility] Last Admin: 03/30/18 09:18 Dose: 30 mg Famotidine (Pepcid) 20 mg PO BID [facility] Last Admin: 03/30/18 17:57 Dose: 20 mg Furosemide (Lasix) 10 mg IVP DAILY [facility] Last Admin: 03/30/18 09:16 Dose: 10 mg Ceftriaxone Sodium 1 gm/ (Sodium Chloride) 100 mls @ 100 mls/hr IVPB Q24H [facility] PRN Reason: Protocol Last Admin: 03/30/18 18:50 Dose: 100 mls/hr Azithromycin 500 mg/ Sodium (Chloride) 250 mls @ 250 mls/hr IVPB Q24H [facility] PRN Reason: Protocol Last Admin: 03/30/18 20:34 Dose: 250 mls/hr Loratadine (Claritin) 10 mg PO DAILY [facility] Last Admin: 03/30/18 09:16 Dose: 10 mg Losartan Potassium (Cozaar) 100 mg PO DAILY [facility] Last Admin: 03/30/18 09:16 Dose: 100 mg Methylprednisolone (Solu-Medrol) 40 mg IV Q8 [facility] Last Admin: 03/30/18 21:53 Dose: 40 mg Montelukast Sodium (Singulair) 10 mg PO HS [facility] Naproxen (Anaprox) 275 mg PO BID [facility] Last Admin: 03/30/18 17:57 Dose: Not Given Paroxetine HCl (Paxil) 30 mg PO DAILY [facility] Last Admin: 03/30/18 09:16 Dose: 30 mg Zolpidem Tartrate (Ambien) 5 mg PO HS [facility] Last Admin: 03/30/18 21:53 Dose: 5 mg - Labs Labs: 03/28/18 22:48 03/28/18 22:48 - Constitutional Appears: No Acute Distress - Head Exam Head Exam: NORMAL INSPECTION, NORMOCEPHALIC - Eye Exam Eye Exam: Normal appearance Pupil Exam: Fixed - ENT Exam ENT Exam: Mucous Membranes Moist, Normal Exam - Neck Exam Neck Exam: Normal Inspection - Respiratory Exam Respiratory Exam: Clear to Ausculation Bilateral, NORMAL BREATHING PATTERN - Cardiovascular Exam Cardiovascular Exam: REGULAR RHYTHM - GI/Abdominal Exam GI & Abdominal Exam: Normal Bowel Sounds - Rectal Exam Rectal Exam: Deferred - Extremities Exam Extremities Exam: Full ROM, Normal Inspection - Back Exam Back Exam: NORMAL INSPECTION - Neurological Exam Neurological Exam: Alert, Awake, CN II-XII Intact, Oriented x3 Neuro motor strength exam: Left Upper Extremity: 3, Right Upper Extremity: 3, Left Lower Extremity: 3, Right Lower Extremity: 3 - Psychiatric Exam Psychiatric exam: Normal Affect, Normal Mood - Skin Skin Exam: Dry, Intact, Normal Color, Warm Assessment and Plan (1) Community acquired pneumonia Assessment & Plan: continue IV abx and await ctx results Status: Acute (2) Dyspnea Assessment & Plan: consult PT and OT and monitor O2 exchange with activity Status: Acute (3) COPD with exacerbation Assessment & Plan: continue neb tx and IV steroids, plan on tapering IV steroids if appropriate Status: Acute (4) Hypertension Assessment & Plan: continue home meds and add diuretic to neutralize mineralocorticoid activity Status: Chronic
[2018-03-31] MEDS: Albuterol 0.083% Inhal Sol (2.5 mg/3 mL) UD INH SCH ×4 (01:17→20:51)
[2018-03-31] MEDS: MethylPREDNISolone 40 mg Vial IV SCH ×3 (05:53→21:37)
[2018-03-31] MEDS: Budesonide 0.5 mg/2 ml Inhal Susp UD INH SCH ×2 (07:51→20:51)
[2018-03-31 08:45] LABS: HEMOGLOBIN 10.7 g/dL (11.0-16.0); MEAN CORPUSCULAR HEMOGLOBIN 27.9 pg (27.0-31.0); MEAN CORPUSCULAR HGB CONC 32.4 g/dL (33.0-37.0); MEAN PLATELET VOLUME 8.1 fL (7.2-11.7); RBC 3.85 Mil/uL (3.80-5.20); RED CELL DISTRIBUTION WIDTH 16.3 % (11.5-14.5)
[2018-03-31 08:48] LABS: WHITE BLOOD COUNT 16.2 K/uL (4.8-10.8)
[2018-03-31 09:02] LABS: CALCIUM 8.6 mg/dl (8.6-10.4)
[2018-03-31] MEDS: Enoxaparin 30 mg Syringe SC SCH (10:51)
[2018-03-31] MEDS: Naproxen 275 mg Tab PO SCH ×2 (10:51→18:34)
--- NOTE | 2018-03-31 11:32 | RAD ---
HISTORY: COMPARISON: 03/29/2018. TECHNIQUE: Chest PA and lateral FINDINGS: LINES AND TUBES: None. LUNG AND PLEURA: There is moderate pulmonary venous congestion and mild interstitial pulmonary edema. No focal consolidation. No pleural effusion or pneumothorax. HEART AND MEDIASTINUM: There is mild cardiomegaly. The hilar and mediastinal contours are within normal limits. SKELETAL STRUCTURES: The bony structures are within normal limits for the patient's age. VISUALIZED UPPER ABDOMEN: Normal. OTHER FINDINGS: None. IMPRESSION: Mild cardiomegaly and moderate pulmonary venous congestion with mild interstitial pulmonary edema. No focal consolidation.
--- NOTE | 2018-03-31 15:53 | CP.PCM.PN ---
Subjective - Date & Time of Evaluation Date of Evaluation: 03/31/18 Time of Evaluation: 13:20 - Subjective Subjective: patient seen and examined gris Cough and shortness of breath afebrile No chest pain Objective - Vital Signs/Intake and Output Vital Signs (last 24 hours): Temp Pulse Resp BP Pulse Ox 98 F 81 20 157/76 H 97 03/31/18 07:00 03/31/18 07:00 03/31/18 07:00 03/31/18 10:51 03/31/18 07:00 Intake and Output: 03/31/18 03/31/18 06:59 18:59 Intake Total 350 Balance 350 - Medications Medications: Current Medications Albuterol Sulfate (Albuterol 0.083% Inhal Jennifer (2.5 Mg/3 Ml) Ud) 2.5 mg INH RQ6 [facility] Last Admin: 03/31/18 13:56 Dose: 2.5 mg Budesonide (Pulmicort Respules) 0.5 mg INH RQ12 [facility] Last Admin: 03/31/18 07:51 Dose: 0.5 mg Enoxaparin Sodium (Lovenox) 30 mg SC DAILY [facility] Last Admin: 03/31/18 10:51 Dose: 30 mg Famotidine (Pepcid) 20 mg PO BID [facility] Last Admin: 03/31/18 10:51 Dose: 20 mg Furosemide (Lasix) 10 mg IVP DAILY [facility] Last Admin: 03/31/18 10:51 Dose: 10 mg Ceftriaxone Sodium 1 gm/ (Sodium Chloride) 100 mls @ 100 mls/hr IVPB Q24H [facility] PRN Reason: Protocol Last Admin: 03/30/18 18:50 Dose: 100 mls/hr Azithromycin 500 mg/ Sodium (Chloride) 250 mls @ 250 mls/hr IVPB Q24H [facility] PRN Reason: Protocol Last Admin: 03/30/18 20:34 Dose: 250 mls/hr Loratadine (Claritin) 10 mg PO DAILY [facility] Last Admin: 03/31/18 10:52 Dose: 10 mg Losartan Potassium (Cozaar) 100 mg PO DAILY [facility] Last Admin: 03/31/18 10:50 Dose: 100 mg Methylprednisolone (Solu-Medrol) 40 mg IV Q8 [facility] Last Admin: 03/31/18 14:01 Dose: 40 mg Montelukast Sodium (Singulair) 10 mg PO HS [facility] Naproxen (Anaprox) 275 mg PO BID [facility] Last Admin: 03/31/18 10:51 Dose: 275 mg Paroxetine HCl (Paxil) 30 mg PO DAILY [facility] Last Admin: 03/31/18 10:51 Dose: 30 mg Zolpidem Tartrate (Ambien) 5 mg PO [facility] Last Admin: 03/30/18 21:53 Dose: 5 mg - Labs Labs: 03/31/18 08:36 03/31/18 08:36 - Head Exam Head Exam: ATRAUMATIC, NORMOCEPHALIC - Eye Exam Eye Exam: Normal appearance - ENT Exam ENT Exam: Mucous Membranes Moist - Respiratory Exam Respiratory Exam: Rales - Cardiovascular Exam Cardiovascular Exam: REGULAR RHYTHM - GI/Abdominal Exam GI & Abdominal Exam: Soft, Normal Bowel Sounds Assessment and Plan (1) COPD with exacerbation Status: Acute (2) Community acquired pneumonia Assessment & Plan: continue IV antibiotics Follow-up chest x-ray Continue nebulizer treatment Taper steroids Status: Acute
[2018-03-31] MEDS: Azithromycin 500 MG in Sodium Chloride 0.9% 250 ML IVPB SCH (19:39)
[2018-04-01] MEDS: Albuterol 0.083% Inhal Sol (2.5 mg/3 mL) UD INH SCH ×4 (01:07→20:56)
[2018-04-01] MEDS: Budesonide 0.5 mg/2 ml Inhal Susp UD INH SCH ×2 (07:48→20:56)
[2018-04-01] MEDS: Naproxen 275 mg Tab PO SCH ×2 (10:54→17:33)
[2018-04-01] MEDS: Enoxaparin 30 mg Syringe SC SCH (10:55)
[2018-04-01] MEDS: MethylPREDNISolone 40 mg Vial IV SCH ×2 (14:51→21:07)
--- NOTE | 2018-04-01 16:45 | CP.PCM.PN ---
Subjective - Date & Time of Evaluation Date of Evaluation: 04/01/18 Time of Evaluation: 11:00 - Subjective Subjective: patient seen and examined Complaining of weakness Shortness of breath on exertion Objective - Vital Signs/Intake and Output Vital Signs (last 24 hours): Temp Pulse Resp BP Pulse Ox 98.1 F 91 H 20 153/75 H 95 04/01/18 15:57 04/01/18 15:57 04/01/18 15:57 04/01/18 15:57 04/01/18 15:57 Intake and Output: 04/01/18 04/01/18 06:59 18:59 Intake Total 300 Balance 300 - Medications Medications: Current Medications Albuterol Sulfate (Albuterol 0.083% Inhal Jennifer (2.5 Mg/3 Ml) Ud) 2.5 mg INH RQ6 [facility] Last Admin: 04/01/18 14:24 Dose: 2.5 mg Budesonide (Pulmicort Respules) 0.5 mg INH RQ12 [facility] Last Admin: 04/01/18 07:48 Dose: 0.5 mg Enoxaparin Sodium (Lovenox) 30 mg SC DAILY [facility] Last Admin: 04/01/18 10:55 Dose: 30 mg Famotidine (Pepcid) 20 mg PO BID [facility] Last Admin: 04/01/18 10:54 Dose: 20 mg Furosemide (Lasix) 20 mg IVP DAILY [facility] Last Admin: 04/01/18 14:52 Dose: 20 mg Ceftriaxone Sodium 1 gm/ (Sodium Chloride) 100 mls @ 100 mls/hr IVPB Q24H [facility] PRN Reason: Protocol Last Admin: 03/31/18 18:34 Dose: 100 mls/hr Azithromycin 500 mg/ Sodium (Chloride) 250 mls @ 250 mls/hr IVPB Q24H [facility] PRN Reason: Protocol Last Admin: 03/31/18 19:39 Dose: 250 mls/hr Loratadine (Claritin) 10 mg PO DAILY [facility] Last Admin: 04/01/18 10:54 Dose: 10 mg Losartan Potassium (Cozaar) 100 mg PO DAILY [facility] Last Admin: 04/01/18 10:54 Dose: 100 mg Methylprednisolone (Solu-Medrol) 40 mg IV Q12 [facility] Last Admin: 04/01/18 14:51 Dose: 40 mg Montelukast Sodium (Singulair) 10 mg PO HS [facility] Last Admin: 03/31/18 21:37 Dose: 10 mg Naproxen (Anaprox) 275 mg PO BID [facility] Last Admin: 04/01/18 10:54 Dose: 275 mg Paroxetine HCl (Paxil) 30 mg PO DAILY [facility] Last Admin: 04/01/18 10:54 Dose: 30 mg Zolpidem Tartrate (Ambien) 5 mg PO [facility] Last Admin: 03/31/18 21:37 Dose: 5 mg - Labs Labs: 03/31/18 08:36 03/31/18 08:36 - Head Exam Head Exam: ATRAUMATIC, NORMOCEPHALIC - Eye Exam Eye Exam: Normal appearance - ENT Exam ENT Exam: Mucous Membranes Moist - Respiratory Exam Respiratory Exam: Rales, Rhonchi - Cardiovascular Exam Cardiovascular Exam: REGULAR RHYTHM - GI/Abdominal Exam GI & Abdominal Exam: Soft, Normal Bowel Sounds - Extremities Exam Extremities Exam: Full ROM - Neurological Exam Neurological Exam: Alert Assessment and Plan (1) COPD with exacerbation Assessment & Plan: switch to p.o. prednisone CAT scan of the chest Continue nebulizer treatment Continue antibiotics Status: Acute (2) Community acquired pneumonia Status: Acute
--- NOTE | 2018-04-01 17:48 | CT ---
Date of service: 04/01/2018 PROCEDURE: CT Chest without contrast HISTORY: cough and dyspnea/R/O ILD COMPARISON: 10/20/2016 and 03/31/2018 serial chest radiographs TECHNIQUE: Contiguous axial images were obtained through the chest without intravenous contrast enhancement. Sagittal and coronal reconstructions were performed. Radiation dose (DLP): 467.60 mGy-cm. This CT exam was performed using one or more of the following dose reduction techniques: Automated exposure control, adjustment of the mA and/or kV according to patient size, and/or use of iterative reconstruction technique. FINDINGS: LUNGS: Interstitial lung disease reticulonodular with a component of basilar honeycombing. The findings are nonspecific but can be seen with idiopathic pulmonary fibrosis. Similar findings identified on serial chest radiographs. Less likely etiologies would be granulomatous type lung disease. No suspicious pulmonary nodules, masses or focal infiltrates. MEDIASTINUM: Unremarkable thoracic aorta. No aneurysm. Cardiomegaly. No evidence of acute, significant cardiovascular disease. Main pulmonary artery unremarkable. No vascular congestion. No lymphadenopathy. PLEURA: No pleural fluid. No pneumothorax. BONES: No fracture. No destructive lesion. UPPER ABDOMEN: Grossly unremarkable. OTHER FINDINGS: None. IMPRESSION: Chronic interstitial lung changes likely idiopathic pulmonary fibrosis.
[2018-04-01] MEDS: Azithromycin 500 MG in Sodium Chloride 0.9% 250 ML IVPB SCH (20:20)
--- NOTE | 2018-04-01 22:46 | CP.PCM.PN ---
Subjective - Date & Time of Evaluation Date of Evaluation: 04/01/18 Time of Evaluation: 22:46 - Subjective Subjective: Pt diagosed with pulmonary edema on CXR and with mild vascular congestion. Increased her furosemide to 40 mg to compensate for apparent fluid retention. Pt does not appear to be improving as fast as I expected. Daily O2 sat measurements show < 90% baseline in RA which drops even further with ambulation. Patient gets easily tired and asks for rest break. Objective - Vital Signs/Intake and Output Vital Signs (last 24 hours): Temp Pulse Resp BP Pulse Ox 98.1 F 91 H 20 153/75 H 95 04/01/18 15:57 04/01/18 15:57 04/01/18 15:57 04/01/18 15:57 04/01/18 15:57 - Medications Medications: Current Medications Albuterol Sulfate (Albuterol 0.083% Inhal Jennifer (2.5 Mg/3 Ml) Ud) 2.5 mg INH RQ6 [facility] Last Admin: 04/01/18 20:56 Dose: 2.5 mg Budesonide (Pulmicort Respules) 0.5 mg INH RQ12 [facility] Last Admin: 04/01/18 20:56 Dose: 0.5 mg Enoxaparin Sodium (Lovenox) 30 mg SC DAILY [facility] Last Admin: 04/01/18 10:55 Dose: 30 mg Famotidine (Pepcid) 20 mg PO BID [facility] Last Admin: 04/01/18 17:34 Dose: 20 mg Furosemide (Lasix) 20 mg IVP DAILY [facility] Last Admin: 04/01/18 14:52 Dose: 20 mg Ceftriaxone Sodium 1 gm/ (Sodium Chloride) 100 mls @ 100 mls/hr IVPB Q24H [facility] PRN Reason: Protocol Last Admin: 04/01/18 17:34 Dose: 100 mls/hr Loratadine (Claritin) 10 mg PO DAILY [facility] Last Admin: 04/01/18 10:54 Dose: 10 mg Losartan Potassium (Cozaar) 100 mg PO DAILY [facility] Last Admin: 04/01/18 10:54 Dose: 100 mg Methylprednisolone (Solu-Medrol) 30 mg IV Q12 [facility] Montelukast Sodium (Singulair) 10 mg PO HS [facility] Last Admin: 04/01/18 21:07 Dose: 10 mg Naproxen (Anaprox) 275 mg PO BID [facility] Last Admin: 04/01/18 17:33 Dose: 275 mg Paroxetine HCl (Paxil) 30 mg PO DAILY [facility] Last Admin: 04/01/18 10:54 Dose: 30 mg Zolpidem Tartrate (Ambien) 5 mg PO HS [facility] Last Admin: 04/01/18 21:06 Dose: 5 mg - Labs Labs: 03/31/18 08:36 03/31/18 08:36 - Constitutional Appears: No Acute Distress - Head Exam Head Exam: NORMAL INSPECTION - Eye Exam Eye Exam: Normal appearance Pupil Exam: NORMAL ACCOMODATION - ENT Exam ENT Exam: Normal Exam - Neck Exam Neck Exam: Normal Inspection - Respiratory Exam Respiratory Exam: Clear to Ausculation Bilateral - Cardiovascular Exam Cardiovascular Exam: REGULAR RHYTHM - GI/Abdominal Exam GI & Abdominal Exam: Normal Bowel Sounds - Rectal Exam Rectal Exam: Deferred - Neurological Exam Neurological Exam: CN II-XII Intact, Normal Gait, Oriented x3 Neuro motor strength exam: Left Upper Extremity: 4, Right Upper Extremity: 4, Left Lower Extremity: 4, Right Lower Extremity: 4 - Psychiatric Exam Psychiatric exam: Normal Affect, Normal Mood - Skin Skin Exam: Dry, Intact Assessment and Plan (1) Community acquired pneumonia Assessment & Plan: on IV abx Status: Deleted (2) COPD with exacerbation Assessment & Plan: as in 2 Status: Chronic (3) Hypertension Assessment & Plan: relatively controlled. continue current meds Status: Chronic (4) Hypoxemia requiring supplemental oxygen Status: Acute (5) Dyspnea Assessment & Plan: pt does not appear to be improving much considering tx given her. CT scan pending. Status: Inactive
[2018-04-02] MEDS: Albuterol 0.083% Inhal Sol (2.5 mg/3 mL) UD INH SCH ×4 (03:01→19:42)
[2018-04-02] MEDS: Budesonide 0.5 mg/2 ml Inhal Susp UD INH SCH (08:11)
[2018-04-02] MEDS: MethylPREDNISolone 40 mg Vial IV SCH ×2 (09:59→22:12)
[2018-04-02] MEDS: Enoxaparin 30 mg Syringe SC SCH (10:01)
[2018-04-02] MEDS: Naproxen 275 mg Tab PO SCH ×2 (10:03→18:14)
--- NOTE | 2018-04-02 12:00 | CP.PCM.PN ---
Subjective - Date & Time of Evaluation Date of Evaluation: 04/02/18 Time of Evaluation: 08:20 - Subjective Subjective: patient seen and examined Breathing and cough much better Afebrile CAT scan of the chest consistent with pulmonary fibrosis Objective - Vital Signs/Intake and Output Vital Signs (last 24 hours): Temp Pulse Resp BP Pulse Ox 98.3 F 70 18 158/83 H 95 04/02/18 08:00 04/02/18 08:00 04/02/18 08:00 04/02/18 10:01 04/02/18 08:00 Intake and Output: 04/02/18 04/02/18 06:59 18:59 Intake Total 710 Balance 710 - Medications Medications: Current Medications Albuterol Sulfate (Albuterol 0.083% Inhal Jennifer (2.5 Mg/3 Ml) Ud) 2.5 mg INH RQ6 [facility] [place] Last Admin: 04/02/18 08:11 Dose: 2.5 mg Budesonide (Pulmicort Respules) 0.5 mg INH RQ12 [facility] [place] Last Admin: 04/02/18 08:11 Dose: 0.5 mg Enoxaparin Sodium (Lovenox) 30 mg SC DAILY [facility] Last Admin: 04/02/18 10:01 Dose: 30 mg Famotidine (Pepcid) 20 mg PO BID [facility] Last Admin: 04/02/18 09:59 Dose: 20 mg Furosemide (Lasix) 20 mg IVP DAILY [facility] Last Admin: 04/02/18 10:01 Dose: 20 mg Ceftriaxone Sodium 1 gm/ (Sodium Chloride) 100 mls @ 100 mls/hr IVPB Q24H [facility] [place] PRN Reason: Protocol Last Admin: 04/01/18 17:34 Dose: 100 mls/hr Loratadine (Claritin) 10 mg PO DAILY [facility] Last Admin: 04/02/18 09:59 Dose: 10 mg Losartan Potassium (Cozaar) 100 mg PO DAILY [facility] [place] Last Admin: 04/02/18 09:59 Dose: 100 mg Methylprednisolone (Solu-Medrol) 30 mg IV Q12 [facility] Last Admin: 04/02/18 09:59 Dose: 30 mg Montelukast Sodium (Singulair) 10 mg PO HS [facility] Last Admin: 04/01/18 21:07 Dose: 10 mg Naproxen (Anaprox) 275 mg PO BID [facility] Last Admin: 04/02/18 10:03 Dose: 275 mg Paroxetine HCl (Paxil) 30 mg PO DAILY [facility] [place] Last Admin: 04/02/18 10:02 Dose: 30 mg Zolpidem Tartrate (Ambien) 5 mg PO HS [facility] [place] Last Admin: 04/01/18 21:06 Dose: 5 mg - Labs Labs: 03/31/18 08:36 03/31/18 08:36 - Head Exam Head Exam: ATRAUMATIC, NORMOCEPHALIC - ENT Exam ENT Exam: Mucous Membranes Moist - Respiratory Exam Respiratory Exam: Rales - Cardiovascular Exam Cardiovascular Exam: REGULAR RHYTHM - GI/Abdominal Exam GI & Abdominal Exam: Soft Assessment and Plan (1) IPF (idiopathic pulmonary fibrosis) Assessment & Plan: Continue patient on prednisone Patient is a candidate for perfenidone Continue nebulizer treatment Status: Acute (2) COPD with exacerbation Status: Acute (3) Community acquired pneumonia Status: Acute
[2018-04-02] MEDS: Fluconazole IV 200mg/100 ml NS 100 ML IVPB SCH (20:56)
[2018-04-02] MEDS: Nystatin 100,000 Units/ml Oral Susp 5 ml UD PO SCH (22:12)
[2018-04-03] MEDS: Albuterol 0.083% Inhal Sol (2.5 mg/3 mL) UD INH SCH ×4 (01:32→19:38)
--- NOTE | 2018-04-03 03:09 | CP.PCM.PN ---
Subjective - Date & Time of Evaluation Date of Evaluation: 04/02/18 Time of Evaluation: 17:00 - Subjective Subjective: Pt's sputum culture back today after pt provided sample 2 days ago. Light growth of yeast, which pt has not had any treatment in the past. Pt has had recurrent pulmonary issues this year and apears to not recover as well when she gets out of hospital. Will start on appropriate anti-fungal antibiotic and request speciation and sensitivity > Another surprising new development is the finding of idiopathic pulmonary fibrosis from a CT scan ordered on the . Review of pt's records showed no prior use of any pulmotoxic meds, including amiodarone. Pt was surprised as well with this finding, and denies any heavy dust accumulations in her new apartment. 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 This would most likely be the cause of pt's pulmonary fibrosis. Pt says they didn't wear masks at the time when working. Objective - Vital Signs/Intake and Output Vital Signs (last 24 hours): Temp Pulse Resp BP Pulse Ox 98.2 F 84 20 158/77 H 95 04/02/18 16:20 04/02/18 16:20 04/02/18 16:20 04/02/18 16:20 04/02/18 16:20 Intake and Output: 04/02/18 04/03/18 18:59 06:59 Intake Total 240 500 Balance 240 500 - Medications Medications: Current Medications Albuterol Sulfate (Albuterol 0.083% Inhal Jennifer (2.5 Mg/3 Ml) Ud) 2.5 mg INH RQ6 [facility] Last Admin: 04/03/18 01:32 Dose: Not Given Enoxaparin Sodium (Lovenox) 30 mg SC DAILY [facility] Last Admin: 04/02/18 10:01 Dose: 30 mg Famotidine (Pepcid) 20 mg PO BID [facility] Last Admin: 04/02/18 18:14 Dose: 20 mg Furosemide (Lasix) 20 mg IVP DAILY [facility] Last Admin: 04/02/18 10:01 Dose: 20 mg Ceftriaxone Sodium 1 gm/ (Sodium Chloride) 100 mls @ 100 mls/hr IVPB Q24H [facility] PRN Reason: Protocol Last Admin: 04/02/18 18:15 Dose: 100 mls/hr Fluconazole (Diflucan Iv 200 Mg/100 Ml Ns) 100 mls @ 100 mls/hr IVPB Q24H [facility] PRN Reason: Protocol Last Admin: 04/02/18 20:56 Dose: 100 mls/hr Loratadine (Claritin) 10 mg PO DAILY [facility] Last Admin: 04/02/18 09:59 Dose: 10 mg Losartan Potassium (Cozaar) 100 mg PO DAILY [facility] Last Admin: 04/02/18 09:59 Dose: 100 mg Methylprednisolone (Solu-Medrol) 30 mg IV Q12 [facility] Last Admin: 04/02/18 22:12 Dose: 30 mg Montelukast Sodium (Singulair) 10 mg PO HS [facility] Last Admin: 04/02/18 22:12 Dose: 10 mg Naproxen (Anaprox) 275 mg PO BID [facility] Last Admin: 04/02/18 18:14 Dose: 275 mg Nystatin (Nystatin Oral Susp) 5 ml PO QID [facility] Last Admin: 04/02/18 22:12 Dose: 5 ml Paroxetine HCl (Paxil) 30 mg PO DAILY [facility] Last Admin: 04/02/18 10:02 Dose: 30 mg Zolpidem Tartrate (Ambien) 5 mg PO HS [facility] Last Admin: 04/02/18 22:12 Dose: 5 mg - Labs Labs: 03/31/18 08:36 03/31/18 08:36 - Constitutional Appears: No Acute Distress, Other (lying down in bed comfortably, no pain) - Head Exam Head Exam: NORMAL INSPECTION (+ rings around eyes) - Eye Exam Eye Exam: Normal appearance Pupil Exam: NORMAL ACCOMODATION - ENT Exam ENT Exam: Normal Exam - Neck Exam Neck Exam: Normal Inspection - Respiratory Exam Respiratory Exam: Decreased Breath Sounds (at bases), Clear to Ausculation Bilateral - Cardiovascular Exam Cardiovascular Exam: REGULAR RHYTHM - GI/Abdominal Exam GI & Abdominal Exam: Normal Bowel Sounds - Rectal Exam Rectal Exam: Deferred - Extremities Exam Extremities Exam: Full ROM, Normal Capillary Refill, Normal Inspection - Back Exam Back Exam: NORMAL INSPECTION - Neurological Exam Neurological Exam: Alert, Awake, CN II-XII Intact, Oriented x3 Neuro motor strength exam: Left Upper Extremity: 4, Right Upper Extremity: 4, Left Lower Extremity: 4, Right Lower Extremity: 4 - Psychiatric Exam Psychiatric exam: Normal Affect, Normal Mood - Skin Skin Exam: Dry, Intact, Normal Color Assessment and Plan (1) IPF (idiopathic pulmonary fibrosis) Assessment & Plan: prob a pneumoconiosis, producing the inevitable scarring typical of any pulmonary insult. Supportive tx? Status: Chronic (2) Fungal pneumonia Assessment & Plan: may exlain pt's low grade fever and chills that she's been complaining of for several months but had remained just below the radar to be detectable early on. Will request for speciation and sensitivity at outside lab if possible Status: Suspected (3) COPD with exacerbation Assessment & Plan: continue neb treatment Status: Chronic (4) Hypertension Assessment & Plan: relatively controlled Status: Chronic (5) Hypoxemia requiring supplemental oxygen Assessment & Plan: Consistently below 90% at rest and ambulating. Will monitor if Po2 imporves with treatment. Otherwise, home O2 set up for pt Status: Acute
--- NOTE | 2018-04-03 03:25 | CP.PCM.PN ---
Subjective - Date & Time of Evaluation Date of Evaluation: 03/31/18 Time of Evaluation: 20:10 - Subjective Subjective: Had ordered bloodwork for pt today with not so unexpected results. Pt's WBC increased, mostly prob from steroids. Clinically more stable from before but not quite "there". Pt showed pulmonary edema on chest xray. May account for patient's hypoxemia which appears to have worsened lately. Objective - Vital Signs/Intake and Output Vital Signs (last 24 hours): Temp Pulse Resp BP Pulse Ox 98.2 F 84 20 158/77 H 95 04/02/18 16:20 04/02/18 16:20 04/02/18 16:20 04/02/18 16:20 04/02/18 16:20 Intake and Output: 04/02/18 04/03/18 18:59 06:59 Intake Total 240 500 Balance 240 500 - Medications Medications: Current Medications Albuterol Sulfate (Albuterol 0.083% Inhal Jennifer (2.5 Mg/3 Ml) Ud) 2.5 mg INH RQ6 [facility] Last Admin: 04/03/18 01:32 Dose: Not Given Enoxaparin Sodium (Lovenox) 30 mg SC DAILY [facility] Last Admin: 04/02/18 10:01 Dose: 30 mg Famotidine (Pepcid) 20 mg PO BID [facility] Last Admin: 04/02/18 18:14 Dose: 20 mg Furosemide (Lasix) 20 mg IVP DAILY [facility] Last Admin: 04/02/18 10:01 Dose: 20 mg Ceftriaxone Sodium 1 gm/ (Sodium Chloride) 100 mls @ 100 mls/hr IVPB Q24H [facility] PRN Reason: Protocol Last Admin: 04/02/18 18:15 Dose: 100 mls/hr Fluconazole (Diflucan Iv 200 Mg/100 Ml Ns) 100 mls @ 100 mls/hr IVPB Q24H [facility] PRN Reason: Protocol Last Admin: 04/02/18 20:56 Dose: 100 mls/hr Loratadine (Claritin) 10 mg PO DAILY [facility] Last Admin: 04/02/18 09:59 Dose: 10 mg Losartan Potassium (Cozaar) 100 mg PO DAILY [facility] Last Admin: 04/02/18 09:59 Dose: 100 mg Methylprednisolone (Solu-Medrol) 30 mg IV Q12 [facility] Last Admin: 08/10/18 22:12 Dose: 30 mg Montelukast Sodium (Singulair) 10 mg PO [facility] Last Admin: 04/02/18 22:12 Dose: 10 mg Naproxen (Anaprox) 275 mg PO BID [facility] Last Admin: 04/02/18 18:14 Dose: 275 mg Nystatin (Nystatin Oral Susp) 5 ml PO QID [facility] Last Admin: 04/02/18 22:12 Dose: 5 ml Paroxetine HCl (Paxil) 30 mg PO DAILY [facility] Last Admin: 04/02/18 10:02 Dose: 30 mg Zolpidem Tartrate (Ambien) 5 mg PO HS [facility] Last Admin: 04/02/18 22:12 Dose: 5 mg - Labs Labs: 03/31/18 08:36 03/31/18 08:36 - Constitutional Appears: No Acute Distress, Other - Eye Exam Eye Exam: Normal appearance Pupil Exam: NORMAL ACCOMODATION - ENT Exam ENT Exam: Mucous Membranes Moist, Normal Exam - Neck Exam Neck Exam: Full ROM, Normal Inspection - Respiratory Exam Respiratory Exam: Decreased Breath Sounds - Cardiovascular Exam Cardiovascular Exam: REGULAR RHYTHM - GI/Abdominal Exam GI & Abdominal Exam: Normal Bowel Sounds - Rectal Exam Rectal Exam: Deferred - Extremities Exam Extremities Exam: Full ROM - Back Exam Back Exam: NORMAL INSPECTION - Neurological Exam Neurological Exam: Alert, Awake, CN II-XII Intact, Oriented x3 Neuro motor strength exam: Left Upper Extremity: 4, Right Upper Extremity: 4, Left Lower Extremity: 4, Right Lower Extremity: 4 - Psychiatric Exam Psychiatric exam: Normal Affect, Normal Mood - Skin Skin Exam: Dry, Intact, Normal Color Assessment and Plan (1) COPD with exacerbation Status: Chronic (2) Hypertension Status: Chronic
[2018-04-03] MEDS: Nystatin 100,000 Units/ml Oral Susp 5 ml UD PO SCH ×4 (10:08→21:12)
[2018-04-03] MEDS: MethylPREDNISolone 40 mg Vial IV SCH (10:09)
[2018-04-03] MEDS: Naproxen 275 mg Tab PO SCH ×2 (10:09→18:35)
[2018-04-03] MEDS: Enoxaparin 30 mg Syringe SC SCH (10:10)
[2018-04-03] MEDS: Fluconazole IV 200mg/100 ml NS 100 ML IVPB SCH (20:10)
--- NOTE | 2018-04-03 21:06 | CP.PCM.PN ---
Subjective - Date & Time of Evaluation Date of Evaluation: 04/03/18 Time of Evaluation: 18:00 - Subjective Subjective: patient seen and examined found to have elevated blood pressure cough and shortness of breath improving Afebrile No chest pain Objective - Vital Signs/Intake and Output Vital Signs (last 24 hours): Temp Pulse Resp BP Pulse Ox 97.7 F 86 20 166/77 H 95 04/03/18 19:20 04/03/18 20:35 04/03/18 19:20 04/03/18 20:35 04/03/18 19:20 - Medications Medications: Current Medications Albuterol Sulfate (Albuterol 0.083% Inhal Jennifer (2.5 Mg/3 Ml) Ud) 2.5 mg INH RQ6 [facility] Last Admin: 04/03/18 19:38 Dose: 2.5 mg Enoxaparin Sodium (Lovenox) 30 mg SC DAILY [facility] Last Admin: 04/03/18 10:10 Dose: 30 mg Famotidine (Pepcid) 20 mg PO BID [facility] Last Admin: 04/03/18 18:35 Dose: 20 mg Furosemide (Lasix) 20 mg IVP DAILY [facility] Last Admin: 04/03/18 10:08 Dose: 20 mg Ceftriaxone Sodium 1 gm/ (Sodium Chloride) 100 mls @ 100 mls/hr IVPB Q24H [facility] PRN Reason: Protocol Last Admin: 04/03/18 18:35 Dose: 100 mls/hr Fluconazole (Diflucan Iv 200 Mg/100 Ml Ns) 100 mls @ 100 mls/hr IVPB Q24H [facility] PRN Reason: Protocol Last Admin: 04/03/18 20:10 Dose: 100 mls/hr Loratadine (Claritin) 10 mg PO DAILY [facility] Last Admin: 04/03/18 10:10 Dose: 10 mg Losartan Potassium (Cozaar) 100 mg PO DAILY [facility] Last Admin: 04/03/18 10:10 Dose: 100 mg Methylprednisolone (Solu-Medrol) 30 mg IV Q12 [facility] Last Admin: 04/03/18 10:09 Dose: 30 mg Montelukast Sodium (Singulair) 10 mg PO HS [facility] Last Admin: 04/02/18 22:12 Dose: 10 mg Naproxen (Anaprox) 275 mg PO BID [facility] Last Admin: 04/03/18 18:35 Dose: Not Given Nystatin (Nystatin Oral Susp) 5 ml PO QID [facility] Last Admin: 04/03/18 18:35 Dose: 5 ml Paroxetine HCl (Paxil) 30 mg PO DAILY [facility] Last Admin: 04/03/18 10:10 Dose: 30 mg Zolpidem Tartrate (Ambien) 5 mg PO HS [facility] Last Admin: 04/03/18 20:40 Dose: 5 mg - Labs Labs: 03/31/18 08:36 03/31/18 08:36 - Head Exam Head Exam: ATRAUMATIC, NORMOCEPHALIC - Eye Exam Eye Exam: Normal appearance - ENT Exam ENT Exam: Mucous Membranes Moist - Neck Exam Neck Exam: Normal Inspection - Respiratory Exam Respiratory Exam: Rales - Cardiovascular Exam Cardiovascular Exam: REGULAR RHYTHM - GI/Abdominal Exam GI & Abdominal Exam: Soft Assessment and Plan (1) IPF (idiopathic pulmonary fibrosis) Assessment & Plan: Switch to po Prednisone started on fluconazole for yeast Continue nebulizer treatment Status: Chronic (2) COPD with exacerbation Status: Chronic
--- NOTE | 2018-04-04 00:09 | CP.PCM.PN ---
Subjective - Date & Time of Evaluation Date of Evaluation: 04/03/18 Time of Evaluation: 22:15 - Subjective Subjective: Ms. Toledo was started on IV antifungal medication yesterday on the finding of light yeast growth on sputum culture. She had also been recently diagnosed the previous day with i[idiopathic] pulmonary fibrosis which may have started when she worked at a [employer] place until her halfway. In the past she did not have many pulmonary issues but this year she has had multiple admissions for varying degrees of breathing problems. Ms. Toledo reports today that she feels better than yesterday and appears to have more energy. I was called by the nurse on duty at around 8 o'clock tonight after patient develop flushing and redness of the face which was observed by the nurse and described by the patient as feeling "hot in the face". Vital signs showed elevated systolic blood pressure despite being given all her usual medications this morning and despite extensive probing patient's symptom did not point to any specific etiology. Patient was given hydralazine 25 mg upon being seen by pulmonary tonight which successfully lowered her blood pressure. I gave orders to current nurse on duty to continue hydralazine 25 mg every 12 hours starting to. Requested that a pre-and post O2 saturation done again tomorrow by physical therapy prior to patients possible discharge home tomorrow. Objective - Vital Signs/Intake and Output Vital Signs (last 24 hours): Temp Pulse Resp BP Pulse Ox 97.7 F 86 20 166/77 H 95 04/03/18 19:20 04/03/18 20:35 04/03/18 19:20 04/03/18 20:35 04/03/18 19:20 Intake and Output: 04/03/18 04/04/18 18:59 06:59 Intake Total 200 Balance 200 - Medications Medications: Current Medications Albuterol Sulfate (Albuterol 0.083% Inhal Jennifer (2.5 Mg/3 Ml) Ud) 2.5 mg INH RQ6 [facility] Last Admin: 04/03/18 19:38 Dose: 2.5 mg Enoxaparin Sodium (Lovenox) 30 mg SC DAILY [facility] Last Admin: 04/03/18 10:10 Dose: 30 mg Famotidine (Pepcid) 20 mg PO BID [facility] Last Admin: 04/03/18 18:35 Dose: 20 mg Furosemide (Lasix) 20 mg IVP DAILY [facility] Last Admin: 04/03/18 10:08 Dose: 20 mg Hydralazine HCl (Apresoline) 25 mg PO Q12H [facility] Ceftriaxone Sodium 1 gm/ (Sodium Chloride) 100 mls @ 100 mls/hr IVPB Q24H [facility] PRN Reason: Protocol Last Admin: 04/03/18 18:35 Dose: 100 mls/hr Fluconazole (Diflucan Iv 200 Mg/100 Ml Ns) 100 mls @ 100 mls/hr IVPB Q24H [facility] PRN Reason: Protocol Last Admin: 04/03/18 20:10 Dose: 100 mls/hr Loratadine (Claritin) 10 mg PO DAILY [facility] Last Admin: 04/03/18 10:10 Dose: 10 mg Losartan Potassium (Cozaar) 100 mg PO DAILY [facility] Last Admin: 04/03/18 10:10 Dose: 100 mg Montelukast Sodium (Singulair) 10 mg PO HS [facility] Last Admin: 04/03/18 21:12 Dose: 10 mg Naproxen (Anaprox) 275 mg PO BID [facility] Last Admin: 04/03/18 18:35 Dose: Not Given Nystatin (Nystatin Oral Susp) 5 ml PO QID [facility] Last Admin: 04/03/18 21:12 Dose: 5 ml Paroxetine HCl (Paxil) 30 mg PO DAILY [facility] Last Admin: 04/03/18 10:10 Dose: 30 mg Prednisone (Prednisone Tab) 20 mg PO DAILY [facility] Zolpidem Tartrate (Ambien) 5 mg PO HS [facility] Last Admin: 04/03/18 21:13 Dose: Not Given - Labs Labs: 03/31/18 08:36 03/31/18 08:36 - Constitutional Appears: No Acute Distress - Head Exam Head Exam: NORMAL INSPECTION - Eye Exam Eye Exam: Normal appearance Pupil Exam: NORMAL ACCOMODATION - ENT Exam ENT Exam: Mucous Membranes Moist - Neck Exam Neck Exam: Normal Inspection - Respiratory Exam Respiratory Exam: Clear to Ausculation Bilateral, NORMAL BREATHING PATTERN - Cardiovascular Exam Cardiovascular Exam: REGULAR RHYTHM - GI/Abdominal Exam GI & Abdominal Exam: Soft, Normal Bowel Sounds - Rectal Exam Rectal Exam: Deferred - Extremities Exam Extremities Exam: Normal Capillary Refill - Back Exam Back Exam: NORMAL INSPECTION - Neurological Exam Neurological Exam: Alert, Awake, CN II-XII Intact, Oriented x3 Neuro motor strength exam: Left Upper Extremity: 4, Right Upper Extremity: 4, Left Lower Extremity: 4, Right Lower Extremity: 4 - Psychiatric Exam Psychiatric exam: Normal Affect, Normal Mood - Skin Skin Exam: Dry, Intact, Normal Color Assessment and Plan (1) IPF (idiopathic pulmonary fibrosis) Status: Chronic (2) Fungal pneumonia Assessment & Plan: ???- not convincing yet that is pneumonic, may have been oral contamination; on antifungal nonetheless 2ndry to persistent phlegm that pt reports Status: Suspected (3) COPD with exacerbation Status: Chronic (4) Hypertension Status: Chronic (5) Hypoxemia requiring supplemental oxygen Status: Acute
[2018-04-04] MEDS: Albuterol 0.083% Inhal Sol (2.5 mg/3 mL) UD INH SCH ×4 (02:16→19:09)
[2018-04-04] MEDS: Nystatin 100,000 Units/ml Oral Susp 5 ml UD PO SCH ×4 (10:46→22:31)
[2018-04-04] MEDS: Naproxen 275 mg Tab PO SCH ×2 (10:48→18:48)
[2018-04-04] MEDS: Enoxaparin 30 mg Syringe SC SCH (10:51)
[2018-04-04 13:50] LABS: BASO % 0.1 % (0.0-2.0); EOS % 0.2 % (0.0-4.0); HEMOGLOBIN 11.1 g/dL (11.0-16.0); LYMPH # 1.7 K/uL (1.0-4.3); LYMPH % 9.9 % (20.0-40.0); MEAN CELL VOLUME 85.5 fL (81.0-99.0); MEAN CORPUSCULAR HEMOGLOBIN 27.8 pg (27.0-31.0); MEAN CORPUSCULAR HGB CONC 32.5 g/dL (33.0-37.0); MEAN PLATELET VOLUME 7.9 fL (7.2-11.7); MONO # 1.2 K/uL (0.0-0.8); MONO % 7.2 % (0.0-10.0); NEUT # 14.3 K/uL (1.8-7.0); NEUT % 82.6 % (50.0-75.0); NRBC % 0.1 % (0.0-2.0); PLATELET COUNT 388 K/uL (130-400); RBC 4.01 Mil/uL (3.80-5.20); RED CELL DISTRIBUTION WIDTH 16.1 % (11.5-14.5); WHITE BLOOD COUNT 17.3 K/uL (4.8-10.8)
[2018-04-04 14:11] LABS: LYMPHOCYTE 9 % (20-40); MONOCYTE 8 % (0-10); NEUTROPHIL 83 % (50-75); PLATELET ESTIMATE NORMAL (NORMAL); TOTAL CELLS COUNTED 100
[2018-04-04 14:12] LABS: ANISOCYTOSIS SLIGHT
[2018-04-04 14:16] LABS: ALB/GLOB RATIO 1.1 (1.0-2.1); ALBUMIN 3.3 g/dL (3.5-5.0); ALT/SGPT 22 U/L (9-52); AST/SGOT 14 U/L (14-36); BLOOD UREA NITROGEN 35 mg/dL (7-17); CALCIUM 8.5 mg/dl (8.6-10.4); GFR AFRICAN-AMERICAN > 60; GFR NON-AFRICAN AMERICAN 60
--- NOTE | 2018-04-04 17:14 | RAD ---
Date of service: 04/04/2018 HISTORY: check lung status, compare vs previous, if lung COMPARISON: Chest radiograph dated 03/31/2018 TECHNIQUE: Chest PA and lateral FINDINGS: LUNGS: Stable chronic prominence of the bilateral interstitial markings. No focal consolidation. PLEURA: No significant pleural effusion identified. No pneumothorax apparent. CARDIOVASCULAR: Atherosclerotic aortic calcifications. Cardiomediastinal silhouette stably enlarged. OSSEOUS STRUCTURES: Unchanged. VISUALIZED UPPER ABDOMEN: Normal. OTHER FINDINGS: None. IMPRESSION: Stable chronic prominence of the bilateral interstitial markings. No focal consolidation or pleural effusion.
--- NOTE | 2018-04-04 17:14 | RAD ---
Date of service: 04/04/2018 PROCEDURE: Cervical Spine Radiographs. HISTORY: Pain. COMPARISON: None. FINDINGS: BONES: Loss of normal lordosis. No fracture. Dens Intact. DISC SPACES: Normal. SOFT TISSUES: Normal. No prevertebral soft tissue swelling. OTHER FINDINGS: None. IMPRESSION: Loss of normal cervical lordosis which may be related to positioning/ spasm. No acute fracture.
[2018-04-04] MEDS: Fluconazole IV 200mg/100 ml NS 100 ML IVPB SCH (20:02)
[2018-04-05] MEDS: Albuterol 0.083% Inhal Sol (2.5 mg/3 mL) UD INH SCH ×3 (01:26→13:39)
--- NOTE | 2018-04-05 05:00 | CP.PCM.PN ---
Subjective - Date & Time of Evaluation Date of Evaluation: 04/04/18 Time of Evaluation: 17:20 - Subjective Subjective: Discussed with nursing staff pt's elevated bp. No apparent complicatinos from abx given, denies diarrhea. If steroid reduction did not lower WBC, suspect but hoping that pt will not develop C. diff colitis Repeat CXR shows no new pathology. Pt O2 set up at home when discharged. Objective - Vital Signs/Intake and Output Vital Signs (last 24 hours): Temp Pulse Resp BP Pulse Ox 98.1 F 69 20 151/71 H 95 04/05/18 00:00 04/05/18 00:00 04/05/18 00:00 04/05/18 00:00 04/05/18 00:00 Intake and Output: 04/04/18 04/05/18 18:59 06:59 Intake Total 350 200 Output Total 450 Balance -100 200 - Medications Medications: Current Medications Albuterol Sulfate (Albuterol 0.083% Inhal Jennifer (2.5 Mg/3 Ml) Ud) 2.5 mg INH RQ6 [facility] Last Admin: 04/05/18 01:26 Dose: Not Given Enoxaparin Sodium (Lovenox) 30 mg SC DAILY [facility] Last Admin: 04/04/18 10:51 Dose: 30 mg Famotidine (Pepcid) 20 mg PO BID [facility] Last Admin: 04/04/18 17:20 Dose: 20 mg Furosemide (Lasix) 20 mg PO DAILY [facility] Hydralazine HCl (Apresoline) 25 mg PO Q12H [facility] Last Admin: 04/04/18 22:31 Dose: 25 mg Ceftriaxone Sodium 1 gm/ (Sodium Chloride) 100 mls @ 100 mls/hr IVPB Q24H [facility] PRN Reason: Protocol Last Admin: 04/04/18 17:20 Dose: 100 mls/hr Fluconazole (Diflucan Iv 200 Mg/100 Ml Ns) 100 mls @ 100 mls/hr IVPB Q24H [facility] PRN Reason: Protocol Last Admin: 04/04/18 20:02 Dose: 100 mls/hr Loratadine (Claritin) 10 mg PO DAILY [facility] Last Admin: 04/04/18 10:46 Dose: 10 mg Losartan Potassium (Cozaar) 100 mg PO DAILY [facility] Last Admin: 04/04/18 10:46 Dose: 100 mg Montelukast Sodium (Singulair) 10 mg PO HS [facility] Last Admin: 04/04/18 22:31 Dose: 10 mg Naproxen (Anaprox) 275 mg PO BID [facility] Last Admin: 04/04/18 18:48 Dose: Not Given Nystatin (Nystatin Oral Susp) 5 ml PO QID [facility] Last Admin: 04/04/18 22:31 Dose: 5 ml Paroxetine HCl (Paxil) 30 mg PO DAILY [facility] Last Admin: 04/04/18 10:46 Dose: 30 mg Prednisone (Prednisone Tab) 20 mg PO DAILY [facility] Last Admin: 04/04/18 10:46 Dose: 20 mg Zolpidem Tartrate (Ambien) 5 mg PO [facility] Last Admin: 04/04/18 22:31 Dose: 5 mg - Labs Labs: 04/04/18 13:40 04/04/18 13:40 - Constitutional Appears: No Acute Distress - Head Exam Head Exam: NORMAL INSPECTION - Eye Exam Eye Exam: Normal appearance - ENT Exam ENT Exam: Normal Exam - Neck Exam Neck Exam: Full ROM, Normal Inspection - Respiratory Exam Respiratory Exam: Clear to Ausculation Bilateral, Prolonged Expiratory Phase, NORMAL BREATHING PATTERN - Cardiovascular Exam Cardiovascular Exam: REGULAR RHYTHM - GI/Abdominal Exam GI & Abdominal Exam: Normal Bowel Sounds - Rectal Exam Rectal Exam: Deferred - Extremities Exam Extremities Exam: Normal Capillary Refill, Normal Inspection - Back Exam Back Exam: NORMAL INSPECTION - Neurological Exam Neurological Exam: Oriented x3 Neuro motor strength exam: Left Upper Extremity: 4, Right Upper Extremity: 4, Left Lower Extremity: 4, Right Lower Extremity: 4 - Psychiatric Exam Psychiatric exam: Normal Affect, Normal Mood - Skin Skin Exam: Dry, Intact Assessment and Plan (1) IPF (idiopathic pulmonary fibrosis) Assessment & Plan: balance may have tipped and fibrosis exerting more influence in patient's health now. Explains multiple admissions this year and needs educating Status: Chronic (2) Fungal pneumonia Status: Suspected (3) COPD with exacerbation Assessment & Plan: completed 3 doses, day 4 today Status: Chronic (4) Hypertension Assessment & Plan: moderately uncontrolled and pt on maximal doses of anti-hypertensives that she' s not allergic to Status: Chronic (5) Hypoxemia requiring supplemental oxygen Assessment & Plan: will require O2 at home Status: Acute
[2018-04-05] MEDS: Naproxen 275 mg Tab PO SCH (10:34)
[2018-04-05] MEDS: Nystatin 100,000 Units/ml Oral Susp 5 ml UD PO SCH ×2 (10:35→13:37)
[2018-04-05] MEDS: Enoxaparin 30 mg Syringe SC SCH (10:35)
[2018-04-05 11:07] LABS: BASO % 0.2 % (0.0-2.0); EOS # 0.2 K/uL (0.0-0.7); HEMOGLOBIN 11.2 g/dL (11.0-16.0); LYMPH # 2.6 K/uL (1.0-4.3); LYMPH % 15.3 % (20.0-40.0); MEAN CELL VOLUME 85.7 fL (81.0-99.0); MEAN CORPUSCULAR HEMOGLOBIN 28.2 pg (27.0-31.0); MEAN CORPUSCULAR HGB CONC 32.9 g/dL (33.0-37.0); MEAN PLATELET VOLUME 7.9 fL (7.2-11.7); MONO # 1.3 K/uL (0.0-0.8); MONO % 7.3 % (0.0-10.0); NEUT # 13.1 K/uL (1.8-7.0); NEUT % 76.2 % (50.0-75.0); RBC 3.99 Mil/uL (3.80-5.20); RED CELL DISTRIBUTION WIDTH 16.3 % (11.5-14.5); WHITE BLOOD COUNT 17.1 K/uL (4.8-10.8)
[2018-04-05 11:35] LABS: ALB/GLOB RATIO 1.1 (1.0-2.1); ALBUMIN 3.3 g/dL (3.5-5.0); ALT/SGPT 15 U/L (9-52); AST/SGOT 21 U/L (14-36); BLOOD UREA NITROGEN 36 mg/dL (7-17); CALCIUM 8.7 mg/dl (8.6-10.4); GFR AFRICAN-AMERICAN > 60; GFR NON-AFRICAN AMERICAN 60
[2018-04-05 11:42] LABS: B-TYPE NATRIURETIC PEPTIDE 352 pg/mL (0-900)
[2018-04-05 16:20] VITALS: BP 129/72; PULSE 66; RESP 20; TEMP 97.7; O2SAT 97
--- NOTE | 2018-04-05 18:09 | CP.PCM.PN ---
Subjective - Date & Time of Evaluation Date of Evaluation: 04/05/18 Time of Evaluation: 10:05 - Subjective Subjective: patient seen and examined complaining of dyspnea on minimal exertion and desaturates Objective - Vital Signs/Intake and Output Vital Signs (last 24 hours): Temp Pulse Resp BP Pulse Ox 97.7 F 66 20 129/72 97 04/05/18 15:00 04/05/18 15:00 04/05/18 15:00 04/05/18 15:00 04/05/18 15:00 Intake and Output: 04/05/18 04/05/18 06:59 18:59 Intake Total 200 Balance 200 - Medications Medications: Current Medications Albuterol Sulfate (Albuterol 0.083% Inhal Jennifer (2.5 Mg/3 Ml) Ud) 2.5 mg INH RQ6 [facility] Last Admin: 04/05/18 13:39 Dose: 2.5 mg Enoxaparin Sodium (Lovenox) 30 mg SC DAILY [facility] Last Admin: 04/05/18 10:35 Dose: 30 mg Famotidine (Pepcid) 20 mg PO BID [facility] Last Admin: 04/05/18 10:34 Dose: 20 mg Fluconazole (Diflucan) 200 mg PO DAILY [facility] PRN Reason: Protocol Stop: 04/07/18 12:01 Last Admin: 04/05/18 12:53 Dose: 200 mg Furosemide (Lasix) 20 mg PO DAILY [facility] Last Admin: 04/05/18 10:35 Dose: 20 mg Hydralazine HCl (Apresoline) 25 mg PO Q12H [facility] Last Admin: 04/05/18 10:34 Dose: 25 mg Loratadine (Claritin) 10 mg PO DAILY [facility] Last Admin: 04/05/18 10:34 Dose: 10 mg Losartan Potassium (Cozaar) 100 mg PO DAILY [facility] Last Admin: 04/05/18 10:34 Dose: 100 mg Montelukast Sodium (Singulair) 10 mg PO HS [facility] Last Admin: 04/04/18 22:31 Dose: 10 mg Naproxen (Anaprox) 275 mg PO BID [facility] Last Admin: 04/05/18 10:34 Dose: Not Given Nystatin (Nystatin Oral Susp) 5 ml PO QID [facility] Last Admin: 04/05/18 13:37 Dose: 5 ml Paroxetine HCl (Paxil) 30 mg PO DAILY [facility] Last Admin: 04/05/18 10:37 Dose: 30 mg Prednisone (Prednisone Tab) 20 mg PO DAILY [facility] Last Admin: 04/05/18 10:34 Dose: 20 mg Zolpidem Tartrate (Ambien) 5 mg PO [facility] Last Admin: 04/04/18 22:31 Dose: 5 mg - Labs Labs: 04/05/18 10:55 04/05/18 10:55 - Head Exam Head Exam: ATRAUMATIC, NORMOCEPHALIC - ENT Exam ENT Exam: Mucous Membranes Moist - Neck Exam Neck Exam: Normal Inspection - Respiratory Exam Respiratory Exam: Rales - Cardiovascular Exam Cardiovascular Exam: REGULAR RHYTHM - GI/Abdominal Exam GI & Abdominal Exam: Soft, Normal Bowel Sounds - Extremities Exam Extremities Exam: Pedal Edema Assessment and Plan (1) IPF (idiopathic pulmonary fibrosis) Assessment & Plan: Continue prednisone 20 mg Home oxygen Continue fluconazole Status: Chronic (2) COPD with exacerbation Status: Chronic
--- NOTE | 2018-04-05 18:10 | CP.PCM.DIS ---
Provider - Provider Date of Admission: 03/28/18 23:27 Attending physician: Kevin Guajardo MD Primary care physician: Kevin Guajardo MD Consults: Pulmonary - Dr. Radha Basilio Diagnosis - Discharge Diagnosis (1) IPF (idiopathic pulmonary fibrosis) Status: Chronic (2) Fungal pneumonia Status: Suspected (3) COPD with exacerbation Status: Chronic Priority: High (4) Hypertension Status: Chronic Priority: Medium (5) Hypoxemia requiring supplemental oxygen Status: Acute Hospital Course - Lab Results Lab Results: Micro Results 03/31/18 Unknown Sputum Gram Stain - Final 03/31/18 Unknown Sputum Sputum Culture - Preliminary Vianney Tropicalis 03/28/18 23:00 Blood Blood Culture - Final NO GROWTH AFTER 5 DAYS 03/28/18 23:00 Blood Gram Stain - Final TEST NOT PERFORMED 03/28/18 22:40 Blood S.aureus & Coag-Neg Staph PNA FISH - Final 03/28/18 22:40 Blood Blood Culture - Final Coagulase Neg Staphylococcus 03/28/18 22:40 Blood Gram Stain - Final Most Recent Lab Values WBC 17.1 K/uL (4.8-10.8) H 04/05/18 10:55 RBC 3.99 Mil/uL (3.80-5.20) 04/05/18 10:55 Hgb 11.2 g/dL (11.0-16.0) 04/05/18 10:55 Hct 34.2 % (34.0-47.0) 04/05/18 10:55 MCV 85.7 fL (81.0-99.0) 04/05/18 10:55 MCH 28.2 pg (27.0-31.0) 04/05/18 10:55 MCHC 32.9 g/dL (33.0-37.0) L 04/05/18 10:55 RDW 16.3 % (11.5-14.5) H 04/05/18 10:55 Plt Count 377 K/uL (130-400) 04/05/18 10:55 MPV 7.9 fL (7.2-11.7) 04/05/18 10:55 Neut % (Auto) 76.2 % (50.0-75.0) H 04/05/18 10:55 Lymph % (Auto) 15.3 % (20.0-40.0) L 04/05/18 10:55 [place] % (Auto) 7.3 % (0.0-10.0) 04/05/18 10:55 Eos % (Auto) 1.0 % (0.0-4.0) 04/05/18 10:55 Baso % (Auto) 0.2 % (0.0-2.0) 04/05/18 10:55 Neut # (Auto) 13.1 K/uL (1.8-7.0) H 04/05/18 10:55 Lymph # (Auto) 2.6 K/uL (1.0-4.3) 04/05/18 10:55 [place] # (Auto) 1.3 K/uL (0.0-0.8) H 04/05/18 10:55 Eos # (Auto) 0.2 K/uL (0.0-0.7) 04/05/18 10:55 Baso # (Auto) 0.0 K/uL (0.0-0.2) 04/05/18 10:55 Neutrophils % (Manual) 83 % (50-75) H 04/04/18 13:40 Lymphocytes % (Manual) 9 % (20-40) L 04/04/18 13:40 Monocytes % (Manual) 8 % (0-10) 04/04/18 13:40 Platelet Estimate Normal (NORMAL) 04/04/18 13:40 Anisocytosis (manual) Slight 04/04/18 13:40 Puncture Site Rra 03/28/18 23:03 pCO2 39 mm/Hg (35-45) 03/28/18 23:03 pO2 125 mm/Hg (80-100) H 03/28/18 23:03 HCO3 25.6 mmol/L (21-28) 03/28/18 23:03 ABG pH 7.42 (7.35-7.45) 03/28/18 23:03 ABG Total CO2 26.5 mmol/L (22-28) 03/28/18 23:03 ABG O2 Saturation 98.6 % (95-98) H 03/28/18 23:03 ABG Base Excess 0.8 mmol/L (-2.0-3.0) 03/28/18 23:03 Rony Test Pos 03/28/18 23:03 ABG Potassium 3.7 mmol/L (3.6-5.2) 03/28/18 23:03 Sodium 142.0 mmol/l (132-148) 03/28/18 23:03 Chloride 110.0 mmol/L (98-107) H 03/28/18 23:03 Glucose 139 mg/dl (65-105) H 03/28/18 23:03 Lactate 1.6 mmol/L (0.7-2.1) 03/28/18 23:03 Liter Flow 2.0 03/28/18 23:03 Sodium 138 mmol/L (132-148) 04/05/18 10:55 Potassium 3.9 mmol/L (3.6-5.2) 04/05/18 10:55 Chloride 101 mmol/L (98-107) 04/05/18 10:55 Carbon Dioxide 28 mmol/L (22-30) 04/05/18 10:55 Anion Gap 14 (10-20) 04/05/18 10:55 BUN 36 mg/dL (7-17) H 04/05/18 10:55 Creatinine 0.9 mg/dL (0.7-1.2) 04/05/18 10:55 Est GFR ( Amer) > 60 04/05/18 10:55 Est GFR (Non-Af Amer) 60 04/05/18 10:55 POC Glucose (mg/dL) 143 mg/dL (65-110) H 03/29/18 16:38 Random Glucose 109 mg/dL (65-105) H 04/05/18 10:55 Calcium 8.7 mg/dl (8.6-10.4) 04/05/18 10:55 Phosphorus 3.4 mg/dL (2.5-4.5) 04/04/18 13:40 Magnesium 2.0 mg/dL (1.6-2.3) 04/04/18 13:40 Total Bilirubin 0.5 mg/dL (0.2-1.3) 04/05/18 10:55 AST 21 U/L (14-36) 04/05/18 10:55 ALT 15 U/L (9-52) 04/05/18 10:55 Alkaline Phosphatase 78 U/L (38-126) 04/05/18 10:55 Troponin I < 0.0120 ng/mL (0.00-0.120) 03/28/18 22:48 NT-Pro-B Natriuret Pep 352 pg/mL (0-900) 04/05/18 10:55 Total Protein 6.4 g/dL (6.3-8.3) 04/05/18 10:55 Albumin 3.3 g/dL (3.5-5.0) L 04/05/18 10:55 Globulin 3.1 gm/dL (2.2-3.9) 04/05/18 10:55 Albumin/Globulin Ratio 1.1 (1.0-2.1) 04/05/18 10:55 Arterial Blood Potassium 3.7 mmol/L (3.6-5.2) 03/28/18 23:03 Discharge Exam - Head Exam Head Exam: NORMAL INSPECTION Discharge Plan - Discharge Medications Prescriptions: Fluconazole [Diflucan] 200 mg PO DAILY 2 Days tab Nystatin [Nystatin Oral Susp] 5 ml PO QID 7 Days udc predniSONE [predniSONE Tab] 20 mg PO DAILY 30 Days tab - Follow Up Plan Condition: IMPROVED Disposition: HOME/ ROUTINE Instructions: Idiopathic Pulmonary Fibrosis, COPD Including Emphysema (DC), Community-Acquired Pneumonia, Adult (DC) Additional Instructions: FOLLOW UP WITH DR GUAJARDO AT HIS OFFICE ---CALL FOR APPOINTMENT CONTINUE HOME MEDICATION ORDER,YOU WILL BE CALLED TOMORROW TO SCHEDULE A FOLLOW UP APPOINTMENT. HOME O2 ORDER ACTIVITY TOLERATED CALL DR GUAJARDO OR GO TO THE EMERGENCY ROOM IF SYMPTOM RETURN ON WORSENING Referrals: Yassine Basilio MD [Staff Provider] - Kevin Guajardo MD [Primary Care Provider] -
== END 2018-04-05 19:17 | disposition home or self-care (01) | DRG 196 ==
LOC: C.ER 22:22 → SUPCPDRO 22:22 → C.3T 23:27 → C.9E 03-29 00:07 → C.6T 03-29 01:24 → C.5S 04-02 00:38
PROVIDERS: ADMIT Family Medicine; ATTEND Family Medicine
DX: J84.112 Idiopathic pulmonary fibrosis (principal); J16.8 Pneumonia due to other specified infectious organisms; B49 Unspecified mycosis; J44.0 Chronic obstructive pulmonary disease with (acute) lower respiratory infection; J81.1 Chronic pulmonary edema; I10 Essential (primary) hypertension; E11.9 Type 2 diabetes mellitus without complications; J20.9 Acute bronchitis, unspecified; M17.12 Unilateral primary osteoarthritis, left knee; M81.0 Age-related osteoporosis without current pathological fracture; R09.02 Hypoxemia; Z99.81 Dependence on supplemental oxygen

== ENCOUNTER 2018-06-12 19:20 | Observation (INO) | payer MEDICARE ==
[2018-06-12 19:20] VITALS: BMI 31.2
--- NOTE | 2018-06-12 19:44 | C.PDOC ---
History Of Present Illness 82 year old female presents to the emergency department with complaints of intermittent chest pain since this morning. She denies fever, chills, nausea, and vomiting. She reports feeling short of breath and states that she is on home O2 for pulmonary fibrosis. She describes her chest pain as dull, aching, non- reproducible with 4/10 severity. Time Seen by Provider: 06/12/18 19:38 Chief Complaint (Nursing): Chest Pain History Per: Patient History/Exam Limitations: no limitations Onset/Duration Of Symptoms: Hrs Current Symptoms Are (Timing): Still Present Severity: Mild Pain Scale Rating Of: 4 Quality: Dull, Aching, "Pain" Associated Symptoms: Dyspnea Modifying Factors: None Exacerbating Factors: None Alleviating Factors: None Recent travel outside of the [place]: No Additional History Per: Family Past Medical History Reviewed: Historical Data, Nursing Documentation, Vital Signs Vital Signs: Last Vital Signs Temp 98 F 06/12/18 19:21 Pulse 96 H 06/12/18 19:21 Resp 20 06/12/18 19:21 BP 142/85 06/12/18 19:21 Pulse Ox 98 06/12/18 19:21 - Medical History PMH: Anxiety, Arthritis, Bronchitis, COPD, Depression, Emphysema, HTN, Hypercholesterolemia, Osteoporosis, Peripheral Edema Denies: Chronic Kidney Disease Surgical History: - [facility] CENTRAL VENOUS CATHETER PLACEMENT WITH GUIDANCE (08/22/14) Family History: States: Diabetes - Social History Hx Tobacco Use: No Hx Alcohol Use: No Hx Substance Use: No - Immunization History Hx Tetanus Toxoid Vaccination: Yes Hx Influenza Vaccination: No Hx Pneumococcal Vaccination: No Review Of Systems Constitutional: Negative for: Fever, Chills Eyes: Negative for: Vision Change Cardiovascular: Positive for: Chest Pain Respiratory: Positive for: Shortness of Breath Gastrointestinal: Negative for: Nausea, Vomiting Genitourinary: Negative for: Dysuria Musculoskeletal: Negative for: Back Pain Skin: Negative for: Rash Neurological: Negative for: Weakness Psych: Negative for: Anxiety Physical Exam - Physical Exam Appears: Non-toxic, No Acute Distress Skin: Warm, Dry Head: Normacephalic Eye(s): bilateral: Normal Inspection, PERRL, EOMI Oral Mucosa: Moist Neck: Trachea Midline, Supple Chest: Symmetrical, No Tenderness Cardiovascular: Rhythm Regular, No Murmur Respiratory: Rales (few rales at the bases), Rhonchi (scattered rhonchi at the bases), No Wheezing Gastrointestinal/Abdominal: Soft, No Tenderness, No Guarding, No Rebound Back: Normal Inspection Extremity: No Tenderness, No Pedal Edema, No Calf Tenderness, Capillary Refill (< 2 seconds), Other (surgical scars present to the right medial knee and right medial leg) Extremity: Bilateral: Atraumatic, Normal Color And Temperature Pulses: Left Dorsalis Pedis: Normal, Right Dorsalis Pedis: Normal Neurological/Psych: Oriented x3 Gait: Steady ED Course And Treatment - Laboratory Results Result Diagrams: 06/12/18 20:11 06/12/18 20:11 ECG: Interpreted By Me, Viewed By Me ECG Rhythm: Sinus Rhythm (87), Nonspecific Changes O2 Sat by Pulse Oximetry: 98 Pulse Ox Interpretation: Normal - Radiology CXR: Interpreted by Me, Viewed By Me CXR Interpretation: Yes: Other (fibrotic changes, mild vas congestion). No: Infiltrates, Fracture, Pnemothorax Progress Note: Plan: EKG. BMP. CMP. Troponin. CBC. PTT. Prothrombin Time. CXR. Ecotrin 325mg PO. Urinalysis Disposition Discussed With DrGerber: Kevin Guajardo Comment: accepted the pt on his service and took over the care at 9:39 PM Doctor Will See Patient In The: Hospital Counseled Patient/Family Regarding: Studies Performed, Diagnosis - Disposition Disposition: HOSPITALIZED Disposition Time: 19:42 Condition: FAIR Forms: [facility] (Belarusian) - POA Present On Arrival: None - Clinical Impression Clinical Impression: Chest pain, IPF (idiopathic pulmonary fibrosis) - Scribe Statement The provider has reviewed the documentation as recorded by the Scribe (Sher Chung) Provider Attestation: All medical record entries made by the Scribe were at my direction and personally dictated by me. I have reviewed the chart and agree that the record accurately reflects my personal performance of the history, physical exam, medical decision making, and the department course for this patient. I have also personally directed, reviewed, and agree with the discharge instructions and disposition. Decision To Admit - Pt Status Changed To: Hospital Disposition Of: Observation - . Bed Request Type: Telemetry Admitting Physician: Bhargavi Alford Patient Diagnosis: Chest pain, IPF (idiopathic pulmonary fibrosis)
[2018-06-12] MEDS ORDERED: Aspirin 325 mg EC Tablets PO STA (19:47)
[2018-06-12] MEDS ORDERED: Aspirin 325 mg EC Tablets PO ONE (19:56)
[2018-06-12 20:18] LABS: BASO % 0.6 % (0.0-2.0); EOS # 0.1 K/uL (0.0-0.7); HEMOGLOBIN 10.6 g/dL (11.0-16.0); LYMPH # 1.4 K/uL (1.0-4.3); MEAN CELL VOLUME 87.2 fL (81.0-99.0); MEAN CORPUSCULAR HEMOGLOBIN 28.7 pg (27.0-31.0); MEAN PLATELET VOLUME 7.3 fL (7.2-11.7); MONO # 0.6 K/uL (0.0-0.8); MONO % 8.5 % (0.0-10.0); NEUT # 4.9 K/uL (1.8-7.0); NEUT % 68.9 % (50.0-75.0); RBC 3.71 Mil/uL (3.80-5.20); RED CELL DISTRIBUTION WIDTH 18.9 % (11.5-14.5); WHITE BLOOD COUNT 7.2 K/uL (4.8-10.8)
[2018-06-12 20:32] LABS: INR 1.1; PROTHROMBIN TIME 11.8 SECONDS (9.7-12.2)
[2018-06-12 20:37] LABS: ALB/GLOB RATIO 1.2 (1.0-2.1); ALBUMIN 3.7 g/dL (3.5-5.0); ALT/SGPT 13 U/L (9-52); AST/SGOT 18 U/L (14-36); BLOOD UREA NITROGEN 20 mg/dL (7-17); CALCIUM 9.3 mg/dl (8.6-10.4); GFR NON-AFRICAN AMERICAN 53
[2018-06-12 20:49] LABS: B-TYPE NATRIURETIC PEPTIDE 121 pg/mL (0-900)
[2018-06-12 21:38] LABS: SQUAMOUS EPITHIAL 8 /hpf (0-5); URINE BACTERIA OCC (<OCC); URINE BILIRUBIN NEGATIVE (NEGATIVE); URINE BLOOD NEGATIVE (NEGATIVE); URINE CLARITY Hazy (Clear); URINE COLOR Yellow (YELLOW); URINE GLUCOSE (UA) NORMAL (Normal); URINE LEUKOCYTE ESTERASE 1+ Leu/uL (Negative); URINE PROTEIN NEGATIVE (NEGATIVE); URINE UROBILINOGEN NORMAL mg/dL (0.2-1.0)
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
[2018-06-13] MEDS: Albuterol 0.083% Inhal Sol (2.5 mg/3 mL) UD INH SCH ×4 (01:36→20:25)
[2018-06-13 04:46] LABS: CK-MB 0.25 ng/mL (0.0-3.38)
[2018-06-13] MEDS: Budesonide 0.5 mg/2 ml Inhal Susp UD INH SCH ×2 (07:52→20:25)
--- NOTE | 2018-06-13 09:30 | RAD ---
Date of service: 06/12/2018 HISTORY: chest pain COMPARISON: 04/04/2018 FINDINGS: LUNGS: Prominent diffuse increased interstitial lung markings which may represent underlying interstitial infiltrate and or edema. Superimposed fibrotic changes. Patchy bibasilar airspace opacities. Suggestion of nodular densities in both lung coburn. PLEURA: Suggestion of small bilateral pleural effusions. CARDIOVASCULAR: Aortic atherosclerotic calcification present Enlarged ectatic aorta. Cardiomegaly. OSSEOUS STRUCTURES: Degenerative changes in the spine. VISUALIZED UPPER ABDOMEN: normal. OTHER FINDINGS: None. IMPRESSION: Prominent diffuse increased interstitial lung markings which may represent underlying interstitial infiltrate and or edema. Superimposed fibrotic changes. Patchy bibasilar airspace opacities. Suggestion of nodular densities in both lung coburn. Suggestion of small bilateral pleural effusions.
[2018-06-13] MEDS ORDERED: NAPROXEN 500 MG PO SCH (10:00)
[2018-06-13] MEDS ORDERED: Furosemide 10 mg/mL LIQ (60mL) PO SCH (10:00)
[2018-06-13] MEDS ORDERED: Home Med 1 UNIT (Ranitidine Hcl [Ranitidine Hcl] 150 MG) PO SCH (10:00)
[2018-06-13] MEDS: Naproxen 275 mg Tab PO SCH ×2 (11:05→22:07)
[2018-06-13 13:26] LABS: CK-MB 0.31 ng/mL (0.0-3.38)
[2018-06-14] MEDS: Albuterol 0.083% Inhal Sol (2.5 mg/3 mL) UD INH SCH ×4 (01:43→19:13)
[2018-06-14] MEDS: Budesonide 0.5 mg/2 ml Inhal Susp UD INH SCH ×2 (08:04→19:13)
[2018-06-14] MEDS: Furosemide 10 mg/mL LIQ (60mL) PO SCH (10:39)
[2018-06-14] MEDS: Naproxen 275 mg Tab PO SCH ×2 (10:43→21:51)
[2018-06-14] MEDS: Enoxaparin 40 mg Syringe SC SCH (10:55)
--- NOTE | 2018-06-14 13:19 | RAD ---
Date of service: 06/14/2018 HISTORY: compare to xray of previous admission COMPARISON: 06/12/2018. TECHNIQUE: Chest PA and lateral FINDINGS: LUNGS: Stable infiltrates/interstitial findings. PLEURA: No significant pleural effusion identified. No pneumothorax apparent. CARDIOVASCULAR: Atherosclerotic calcifications identified primarily aortic arch. Cardiomegaly. No evidence of acute, significant cardiovascular disease. OSSEOUS STRUCTURES: No significant abnormalities. VISUALIZED UPPER ABDOMEN: Normal. OTHER FINDINGS: None. IMPRESSION: Stable pulmonary parenchymal findings. Overall no interval change.
--- NOTE | 2018-06-14 16:00 | CP.PCM.PN ---
Subjective - Date & Time of Evaluation Date of Evaluation: 06/14/18 Time of Evaluation: 16:00 - Subjective Subjective: PATIENT SEEN AND EXAMINED AT THE BEDSIDE Objective - Vital Signs/Intake and Output Vital Signs (last 24 hours): Temp Pulse Resp BP Pulse Ox 98.1 F 77 20 127/64 98 06/14/18 08:00 06/14/18 12:00 06/14/18 08:00 06/14/18 10:39 06/14/18 08:00 - Medications Medications: Current Medications Albuterol Sulfate (Albuterol 0.083% Inhal Jennifer (2.5 Mg/3 Ml) Ud) 2.5 mg INH RQ6 [facility] Last Admin: 06/14/18 13:48 Dose: Not Given Budesonide (Pulmicort Respules) 0.5 mg INH RQ12 [facility] Last Admin: 06/14/18 08:04 Dose: Not Given Enoxaparin Sodium (Lovenox) 40 mg SC DAILY [facility] Last Admin: 06/14/18 10:55 Dose: 40 mg Famotidine (Pepcid) 20 mg PO DAILY [facility] Last Admin: 06/14/18 10:55 Dose: 20 mg Furosemide (Lasix) 10 mg PO DAILY [facility] Last Admin: 06/14/18 10:39 Dose: 10 mg Influenza Virus Vaccine (Fluzone Quad [id number]) 60 mcg IM .ONCE ONE Stop: 06/15/18 12:01 Loratadine (Claritin) 10 mg PO DAILY [facility] Last Admin: 06/14/18 10:43 Dose: 10 mg Losartan Potassium (Cozaar) 100 mg PO DAILY [facility] Last Admin: 06/14/18 10:38 Dose: 100 mg Montelukast Sodium (Singulair) 10 mg PO HS [facility] Last Admin: 06/13/18 22:07 Dose: 10 mg Naproxen (Anaprox) 275 mg PO Q12 [facility] Last Admin: 06/14/18 10:43 Dose: 275 mg Paroxetine HCl (Paxil) 30 mg PO DAILY [facility] Last Admin: 06/14/18 10:43 Dose: 30 mg Zolpidem Tartrate (Ambien) 5 mg PO HS [facility] Last Admin: 06/13/18 22:07 Dose: 5 mg - Labs Labs: 06/12/18 20:11 06/12/18 20:11 PT 11.8 SECONDS (9.7-12.2) 06/12/18 20:11 INR 1.1 06/12/18 20:11 APTT 28 SECONDS (21-34) 06/12/18 20:11 Assessment and Plan - Assessment and Plan (Free Text) Assessment: FOLLOW UP WITH DR JACINTO IN HIS OFFICE ----CALL FOR APPOINTMENT CONTINUE HOME MEDICATION ACTIVITY TOLERATED CALL DR JACINTO OR GO TO THE EMERGENCY ROOM IF SYMPTOM RETURN OR WORSENING
[2018-06-15] MEDS: Albuterol 0.083% Inhal Sol (2.5 mg/3 mL) UD INH SCH ×3 (01:32→13:10)
[2018-06-15 07:34] LABS: BASO % 0.4 % (0.0-2.0); EOS # 0.1 K/uL (0.0-0.7); EOS % 0.9 % (0.0-4.0); HEMOGLOBIN 10.5 g/dL (11.0-16.0); LYMPH # 0.5 K/uL (1.0-4.3); LYMPH % 5.8 % (20.0-40.0); MEAN CELL VOLUME 86.7 fL (81.0-99.0); MEAN CORPUSCULAR HEMOGLOBIN 29.1 pg (27.0-31.0); MEAN CORPUSCULAR HGB CONC 33.6 g/dL (33.0-37.0); MEAN PLATELET VOLUME 7.6 fL (7.2-11.7); MONO # 0.7 K/uL (0.0-0.8); MONO % 8.9 % (0.0-10.0); NEUT # 6.9 K/uL (1.8-7.0); PLATELET COUNT 315 K/uL (130-400); RBC 3.62 Mil/uL (3.80-5.20); RED CELL DISTRIBUTION WIDTH 19.2 % (11.5-14.5); WHITE BLOOD COUNT 8.3 K/uL (4.8-10.8)
[2018-06-15] MEDS: Budesonide 0.5 mg/2 ml Inhal Susp UD INH SCH (07:50)
[2018-06-15 08:01] VITALS: PULSE 81
[2018-06-15 08:11] LABS: ALB/GLOB RATIO 1.1 (1.0-2.1); ALBUMIN 3.5 g/dL (3.5-5.0); ALT/SGPT 15 U/L (9-52); AST/SGOT 21 U/L (14-36); BLOOD UREA NITROGEN 35 mg/dL (7-17); CALCIUM 8.6 mg/dl (8.6-10.4); GFR NON-AFRICAN AMERICAN 53
[2018-06-15] MEDS: Naproxen 275 mg Tab PO SCH (09:19)
[2018-06-15] MEDS: Furosemide 10 mg/mL LIQ (60mL) PO SCH (09:19)
[2018-06-15] MEDS: Enoxaparin 40 mg Syringe SC SCH (09:19)
[2018-06-15 10:27] LABS: ANISOCYTOSIS MODERATE; BANDS 9 % (0-2); LYMPHOCYTE 5 % (20-40); METAMYELOCYTE 2 % (0-0); MONOCYTE 10 % (0-10); NEUTROPHIL 73 % (50-75); PLATELET ESTIMATE NORMAL (NORMAL); REACTIVE LYMPHOCYTES 1 % (0-0); TOTAL CELLS COUNTED 100
[2018-06-15] MEDS ORDERED: Influenza Vaccine 60 MCG/0.5 ML SYR (3 yr & up) IM ONE ×2 (12:00→17:04)
[2018-06-15 15:49] VITALS: BP 126/74; RESP 20; TEMP 97.5; O2SAT 96
--- NOTE | 2018-06-15 19:28 | CARD ---
APPROVED REPORT Date of service: 06/13/2018 EKG Measurement Heart [id number] <Conclusion> Normal sinus rhythm Left anterior fascicular block Abnormal ECG
--- NOTE | 2018-06-15 19:29 | CARD ---
APPROVED REPORT Date of service: 06/12/2018 EKG Measurement Heart [id number] <Conclusion> Normal sinus rhythm Left anterior fascicular block Abnormal ECG
--- NOTE | 2018-06-15 19:29 | CARD ---
APPROVED REPORT Date of service: 06/13/2018 EKG Measurement Heart [id number] <Conclusion> Normal sinus rhythm Left anterior fascicular block Abnormal ECG
== END 2018-06-15 18:00 | disposition home or self-care (01) ==
LOC: C.ER 19:20 → C.9E 21:36 → C.5S 22:04
PROVIDERS: ADMIT Internal Medicine Cardiovascular Disease; ATTEND Internal Medicine Cardiovascular Disease
DX: J84.112 Idiopathic pulmonary fibrosis (principal); R07.9 Chest pain, unspecified; R09.02 Hypoxemia; D64.9 Anemia, unspecified; E78.00 Pure hypercholesterolemia, unspecified; I10 Essential (primary) hypertension; J43.9 Emphysema, unspecified; M81.0 Age-related osteoporosis without current pathological fracture; Z87.440 Personal history of urinary (tract) infections; Z99.81 Dependence on supplemental oxygen
CPT/HCPCS: 36415; 71045; 71046; 80053; 81001; 83880; 84484; 85025; 85610; 85730; 87086; 90674; 93005; 94640; 96372; 96374; 99285; G0008; G0378; J1650; J1940

== ENCOUNTER 2018-08-13 19:38 | Observation (INO) | payer MEDICARE ==
[2018-08-13 19:38] VITALS: BMI 31.2
[2018-08-13 20:40] LABS: BASO # 0.1 K/uL (0.0-0.2); BASO % 0.9 % (0.0-2.0); EOS # 0.3 K/uL (0.0-0.7); EOS % 3.2 % (0.0-4.0); HEMOGLOBIN 11.3 g/dL (11.0-16.0); LYMPH # 1.7 K/uL (1.0-4.3); LYMPH % 18.9 % (20.0-40.0); MEAN CORPUSCULAR HEMOGLOBIN 28.9 pg (27.0-31.0); MEAN CORPUSCULAR HGB CONC 32.4 g/dL (33.0-37.0); MEAN PLATELET VOLUME 8.1 fL (7.2-11.7); MONO # 0.7 K/uL (0.0-0.8); MONO % 7.8 % (0.0-10.0); NEUT # 6.3 K/uL (1.8-7.0); NEUT % 69.2 % (50.0-75.0); RBC 3.91 Mil/uL (3.80-5.20); RED CELL DISTRIBUTION WIDTH 16.3 % (11.5-14.5); WHITE BLOOD COUNT 9.1 K/uL (4.8-10.8)
[2018-08-13 20:41] LABS: MEAN CELL VOLUME 89.3 fL (81.0-99.0)
[2018-08-13 20:47] LABS: INR 1.1; PROTHROMBIN TIME 12.3 SECONDS (9.7-12.2)
[2018-08-13 21:08] LABS: ALBUMIN 3.8 g/dL (3.5-5.0); ALT/SGPT 10 U/L (9-52); AST/SGOT 27 U/L (14-36); BLOOD UREA NITROGEN 21 mg/dL (7-17); CALCIUM 9.2 mg/dl (8.6-10.4); GFR NON-AFRICAN AMERICAN 43
[2018-08-13 21:17] LABS: B-TYPE NATRIURETIC PEPTIDE 186 pg/mL (0-900); CK-MB 0.32 ng/mL (0.0-3.38)
--- NOTE | 2018-08-13 21:43 | C.PDOC ---
History Of Present Illness 83 y/o female presents to the ER complaining of shortness of breath x 1 week and right sided chest pain x 1 day. Patient states that the chest pain is intermittent and sharp, worsens with deep breaths. Patient reports that she has productive cough for the past 2-3 days. She notes that she has history of pulmonary fibrosis and she uses 3 liters of Home 02. Her [employer] is . Patient denies palpitations, fever, chills, abdominal pain, leg edema. Time Seen by Provider: 08/13/18 19:59 Chief Complaint (Nursing): Chest Pain History Per: Patient History/Exam Limitations: no limitations Onset/Duration Of Symptoms: Days Current Symptoms Are (Timing): Still Present Severity: Moderate Quality: Sharp Past Medical History Reviewed: Historical Data, Nursing Documentation, Vital Signs Vital Signs: Last Vital Signs Temp 98.6 F 08/13/18 20:02 Pulse 84 08/13/18 20:02 Resp 24 08/13/18 20:02 BP 164/64 H 08/13/18 20:02 Pulse Ox 95 08/13/18 20:02 - Medical History PMH: Anxiety, Arthritis, Bronchitis, COPD, Depression, Emphysema, HTN, Hypercholesterolemia, Osteoporosis, Peripheral Edema Surgical History: - [facility] Procedures CENTRAL VENOUS CATHETER PLACEMENT WITH GUIDANCE (08/22/14) Family History: States: Diabetes - Social History Hx Tobacco Use: No Hx Alcohol Use: No Hx Substance Use: No - Immunization History Hx Tetanus Toxoid Vaccination: Yes Hx Influenza Vaccination: No Hx Pneumococcal Vaccination: No Review Of Systems Except As Marked, All Systems Reviewed And Found Negative. Constitutional: Negative for: Fever, Chills Cardiovascular: Positive for: Chest Pain. Negative for: Palpitations Respiratory: Positive for: Cough, Shortness of Breath Gastrointestinal: Negative for: Nausea, Vomiting, Abdominal Pain Skin: Negative for: Rash Neurological: Negative for: Weakness, Numbness, Headache, Dizziness Physical Exam - Physical Exam Appears: Well, Non-toxic, No Acute Distress, Other (speaking in full sentences) Skin: Normal Color, Warm, Dry Eye(s): bilateral: Normal Inspection Oral Mucosa: Moist Neck: Supple Chest: Symmetrical Cardiovascular: Rhythm Regular Respiratory: No Accessory Muscle Use, No Rales, No Rhonchi, No Wheezing, Other (coarse breath sounds bilaterally) Gastrointestinal/Abdominal: Normal Exam, Bowel Sounds, Soft, No Tenderness Extremity: Normal ROM, Pedal Edema (+1 pitting edema B/L LEs), No Calf Tenderness Pulses: Left Dorsalis Pedis: Normal, Right Dorsalis Pedis: Normal Neurological/Psych: Oriented x3 ED Course And Treatment - Laboratory Results Result Diagrams: 08/18/18 06:10 08/18/18 06:10 ECG: Interpreted By Me, Viewed By Me ECG Rhythm: Sinus Rhythm ECG Interpretation: Abnormal Interpretation Of ECG: NSR 84 bpm with left axis deviation, Q waves in Leads AVF, V4-V6, and no acute ST changes Rate From EC O2 Sat by Pulse Oximetry: 95 (RA) Pulse Ox Interpretation: Normal - Radiology CXR: Interpreted by Me, Viewed By Me CXR Interpretation: Yes: No Acute Disease. No: Infiltrates Progress Note: Blood work, CXR, EKG ordered and reviewed. Patient given IV Solumedrol and nebulizer treatments. 11:48pm- Dr. Gaujardo is on blue list, requests we admit patient under Dr. Basilio's service. - Physician Consult Information Physician Contacted: Kevin Guajardo Outcome Of Conversation: Discussed patient with PMD, agrees with admission for pulm fibrosis exacerbation, dyspnea, chest pain. Dr. Basilio is pulm - spoke with him, he recommends IV solumedrol and nebs. Critical Care Time - Critical Care Note Total Time (in mins): 35 Documented critical care: time excludes all time spent performing seperately billable procedures. Disposition - Disposition Disposition: HOSPITALIZED Disposition Time: 23:17 Condition: STABLE - Clinical Impression Clinical Impression: Pulmonary fibrosis, Dyspnea, Chest pain - Scribe Statement The provider has reviewed the documentation as recorded by the Celiaibsuleman Bhatq Provider Attestation: All medical record entries made by the Scribe were at my direction and personally dictated by me. I have reviewed the chart and agree that the record accurately reflects my personal performance of the history, physical exam, medical decision making, and the department course for this patient. I have also personally directed, reviewed, and agree with the discharge instructions and disposition. Decision To Admit - Pt Status Changed To: Hospital Disposition Of: Observation - . Bed Request Type: Telemetry Admitting Physician: Yassine Basilio Patient Diagnosis: Pulmonary fibrosis, Dyspnea, Chest pain
[2018-08-13] MEDS ORDERED: Albuterol 0.083% Inhal Sol (2.5 mg/3 mL) UD IH STA (22:52)
[2018-08-13] MEDS ORDERED: Albuterol 0.042% Inhal Sol (1.25 mg/3 mL) UD ONE (23:23)
[2018-08-14 00:15] LABS: ABG ALLEN TEST POS; ARTERIAL BLOOD GAS HCO3 25.6 mmol/L (21-28); ARTERIAL BLOOD GAS HEMOGLOBIN 8.8 g/dL (11.7-17.4); ARTERIAL BLOOD GAS O2 SAT 97.2 % (95-98); ARTERIAL BLOOD GAS PCO2 38 mm/Hg (35-45); ARTERIAL BLOOD GAS PH 7.43 (7.35-7.45); ARTERIAL BLOOD GAS PO2 105 mm/Hg (80-100); ARTERIAL BLOOD GAS TCO2 26.4 mmol/L (22-28)
[2018-08-14] MEDS: Albuterol 0.083% Inhal Sol (2.5 mg/3 mL) UD IH SCH ×5 (08:38→20:36)
[2018-08-14] MEDS ORDERED: Enoxaparin 30 mg Syringe SC SCH (10:00)
[2018-08-14] MEDS: ESBRIET 267 MG PO SCH ×3 (11:10→17:20)
[2018-08-14] MEDS: Piperacill/Tazo 3.375gm in Dex 3.375 GM/50 ML BAG IVPB SCH ×3 (11:10→21:23)
[2018-08-14] MEDS: MethylPREDNISolone 40 mg Vial IVP SCH ×3 (11:18→23:44)
[2018-08-14] MEDS: Albuterol-Ipratrop 3 mg / 0.5 (3 ml) UD INH SCH ×2 (14:06→19:20)
--- NOTE | 2018-08-14 16:29 | RAD ---
Date of service: 08/13/2018 PROCEDURE: CHEST RADIOGRAPH, 1 VIEW HISTORY: SOB COMPARISON: 06/14/2018 FINDINGS: LUNGS: No infiltrate. Linear scar/atelectasis at both lung bases. PLEURA: No pneumothorax or pleural fluid seen. CARDIOVASCULAR: No aortic atherosclerotic calcification present. Normal. OSSEOUS STRUCTURES: No significant abnormalities. VISUALIZED UPPER ABDOMEN: Normal. OTHER FINDINGS: None. IMPRESSION: No active disease.
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
[2018-08-15] MEDS: Albuterol-Ipratrop 3 mg / 0.5 (3 ml) UD INH SCH ×4 (02:02→19:30)
[2018-08-15 02:36] LABS: ALBUMIN 3.4 g/dL (3.5-5.0); CALCIUM 8.8 mg/dl (8.6-10.4)
[2018-08-15 02:50] LABS: CK-MB 1.1 ng/mL (0.0-3.38); TROPONIN I 0.176 ng/mL (0.00-0.120)
[2018-08-15] MEDS: Albuterol 0.083% Inhal Sol (2.5 mg/3 mL) UD IH SCH ×7 (03:07→20:48)
[2018-08-15] MEDS: MethylPREDNISolone 40 mg Vial IVP SCH ×4 (04:06→22:37)
[2018-08-15] MEDS: Piperacill/Tazo 3.375gm in Dex 3.375 GM/50 ML BAG IVPB SCH ×4 (04:06→21:50)
[2018-08-15 08:36] LABS: BASO % 0.1 % (0.0-2.0); HEMOGLOBIN 10.7 g/dL (11.0-16.0); LYMPH # 1.1 K/uL (1.0-4.3); LYMPH % 7.9 % (20.0-40.0); MEAN CELL VOLUME 89.5 fL (81.0-99.0); MEAN CORPUSCULAR HEMOGLOBIN 29.8 pg (27.0-31.0); MEAN CORPUSCULAR HGB CONC 33.3 g/dL (33.0-37.0); MEAN PLATELET VOLUME 7.8 fL (7.2-11.7); MONO # 0.2 K/uL (0.0-0.8); MONO % 1.4 % (0.0-10.0); NEUT # 12.7 K/uL (1.8-7.0); NEUT % 90.6 % (50.0-75.0); PLATELET COUNT 350 K/uL (130-400); RBC 3.58 Mil/uL (3.80-5.20); RED CELL DISTRIBUTION WIDTH 16.2 % (11.5-14.5); WHITE BLOOD COUNT 14.1 K/uL (4.8-10.8)
[2018-08-15 08:53] LABS: CK-MB 1.19 ng/mL (0.0-3.38)
[2018-08-15 08:55] LABS: TROPONIN I 0.202 ng/mL (0.00-0.120)
--- NOTE | 2018-08-15 09:26 | CP.PCM.PN ---
<Jakob Espino - Last Filed: 08/15/18 14:15> Subjective - Date & Time of Evaluation Date of Evaluation: 08/15/18 Time of Evaluation: 09:25 - Subjective Subjective: PGY3 Note for Dr. Cannon This patient was seen and examined at bedside this AM; states she is resting comfortably and has no complaints but appears more short of breath on exam; denies all symptoms. Objective - Vital Signs/Intake and Output Vital Signs (last 24 hours): Temp Pulse Resp BP Pulse Ox 98.0 F 76 18 134/68 96 08/15/18 07:00 08/15/18 07:00 08/15/18 07:00 08/15/18 07:00 08/15/18 08:09 - Medications Medications: Current Medications Albuterol Sulfate (Albuterol 0.083% Inhal Jennifer (2.5 Mg/3 Ml) Ud) 2.5 mg IH RQ3 [facility] Last Admin: 08/15/18 08:30 Dose: 2.5 mg Albuterol/Ipratropium (Duoneb 3 Mg/0.5 Mg (3 Ml) Ud) 3 ml INH RQ6 CAS Last Admin: 08/15/18 07:42 Dose: 3 ml Aspirin (Ecotrin) 81 mg PO DAILY [facility] Home Med (Patient's Own Medication) 3 tab PO TID CAS Last Admin: 08/14/18 17:20 Dose: 3 tab Hydrochlorothiazide (Hydrodiuril) 25 mg PO DAILY [facility] Piperacillin Sod/Tazobactam Sod (Zosyn 3.375 Gm Iv Premix) 3.375 gm in 50 mls @ 100 mls/hr IVPB Q6H CAS; Protocol Last Admin: 08/15/18 09:07 Dose: 100 mls/hr Heparin Sodium/Sodium Chloride (Heparin 99490 Units/250ml 1/2 Normal Saline) 25,000 units in 250 mls @ 9.253 mls/hr IV .Q24H PRN; Protocol PRN Reason: ADJUST RATE PER PROTOCOL Losartan Potassium (Cozaar) 100 mg PO DAILY [facility] Methylprednisolone (Solu-Medrol) 40 mg IVP Q6H [facility] Last Admin: 08/15/18 04:06 Dose: 40 mg Montelukast Sodium (Singulair) 10 mg PO HS CAS Last Admin: 12/22/18 21:23 Dose: 10 mg Pantoprazole Sodium (Protonix Inj) 40 mg IVP DAILY [facility] Last Admin: 08/14/18 10:17 Dose: 40 mg Paroxetine HCl (Paxil) 30 mg PO DAILY [facility] Ticagrelor (Brilinta) 90 mg PO BID [facility] Zolpidem Tartrate (Ambien) 5 mg PO HS PRN PRN Reason: Insomnia Last Admin: 08/15/18 01:53 Dose: 5 mg - Labs Labs: 08/15/18 08:14 08/15/18 02:07 PT 12.3 SECONDS (9.7-12.2) H 08/13/18 20:36 INR 1.1 08/13/18 20:36 APTT 28 SECONDS (21-34) 08/13/18 20:36 - Constitutional Appears: Well, Non-toxic - Head Exam Head Exam: ATRAUMATIC - Eye Exam Eye Exam: EOMI, Normal appearance, PERRL - ENT Exam ENT Exam: Mucous Membranes Moist - Neck Exam Neck Exam: Full ROM. absent: Lymphadenopathy - Respiratory Exam Respiratory Exam: Decreased Breath Sounds, Wheezes, NORMAL BREATHING PATTERN. absent: Clear to Ausculation Bilateral, Rales, Rhonchi, Respiratory Distress, Stridor - Cardiovascular Exam Cardiovascular Exam: REGULAR RHYTHM, +S1, +S2 - GI/Abdominal Exam GI & Abdominal Exam: Soft, Normal Bowel Sounds. absent: Tenderness, Organomegaly - Extremities Exam Extremities Exam: Full ROM. absent: Calf Tenderness - Back Exam Back Exam: NORMAL INSPECTION. absent: CVA tenderness (L), CVA tenderness (R) - Neurological Exam Neurological Exam: Alert, Awake, Oriented x3 - Psychiatric Exam Psychiatric exam: Normal Affect, Normal Mood - Skin Skin Exam: Warm Assessment and Plan - Assessment and Plan (Free Text) Assessment: 83yo F admitted for chest pain Chest Pain--NSTEMI -initial MINOR negative; 2nd .18, 3rd .2-->NSTEMI, will f/u MINOR after heparin drip as well. -patient is NPO currently for possible procedure; if no procedure tonight can eat dinner -EKG shows partial block on 8am; changed from previous; no STEMI -heparin drip w/ bolus -brilanta loading given; 90mg BID after -Aspirin loading; 81mg PO daily after -Dr. Cruz on Consult; Dr. Jimenez is covering over weekend -f/u Echo -BNP WNL; not clinically overloaded on exam IPF; acute on chronic exacerbation -Dr. Praful Garcia; pulmonology; thank you for your help -c/w solumedrol Q6H 40mg IV -c/w Albuterol PRN and Duonebs Q3H PRN for SOB -c/w monteleukast -c/w Pirfenidone 267mg TID (patients own medication) -ABG did not show patient was retaining Co2; can talk in full sentences but states has to "move slowly", does not use CPAP/BiPap at home -Zosyn 3.375 Q6H for change in color of sputum; will continue as per pulm Hx of HTN -c/w losartan 100mg -c/w Hctz 25mg Hx of Depression/anxiety -c/w paxil 30mg daily -do not discontinue rapidly as this can cause severe side effects hx of Gerd -continue with h2 liv Proph -lovenox Sc 30mg; 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 Kassandra Espino PGY3 <Toña Cannon V - Last Filed: 08/15/18 20:04> Objective - Vital Signs/Intake and Output Vital Signs (last 24 hours): Temp Pulse Resp BP Pulse Ox 98.0 F 76 18 134/68 96 08/15/18 07:00 08/15/18 07:00 08/15/18 07:00 08/15/18 07:00 08/15/18 08:09 Intake and Output: 08/15/18 08/15/18 06:59 18:59 Intake Total 200 Balance 200 - Medications Medications: Current Medications Albuterol Sulfate (Albuterol 0.083% Inhal Jennifer (2.5 Mg/3 Ml) Ud) 2.5 mg IH RQ3 CAS Last Admin: 08/15/18 08:30 Dose: 2.5 mg Albuterol/Ipratropium (Duoneb 3 Mg/0.5 Mg (3 Ml) Ud) 3 ml INH RQ6 CAS Last Admin: 08/15/18 07:42 Dose: 3 ml Aspirin (Ecotrin) 81 mg PO DAILY [facility] Home Med (Patient's Own Medication) 3 tab PO TID CAS Last Admin: 08/15/18 13:08 Dose: 3 tab Hydrochlorothiazide (Hydrodiuril) 25 mg PO DAILY [facility] Last Admin: 08/15/18 09:57 Dose: 25 mg Piperacillin Sod/Tazobactam Sod (Zosyn 3.375 Gm Iv Premix) 3.375 gm in 50 mls @ 100 mls/hr IVPB Q6H [facility]; Protocol Last Admin: 08/15/18 09:07 Dose: 100 mls/hr Heparin Sodium/Sodium Chloride (Heparin 46532 Units/250ml 1/2 Normal Saline) 25,000 units in 250 mls @ 9.253 mls/hr IV .Q24H PRN; Protocol PRN Reason: ADJUST RATE PER PROTOCOL Last Admin: 08/15/18 09:30 Dose: 12 units/kg/hr, 9.253 mls/hr Losartan Potassium (Cozaar) 100 mg PO DAILY [facility] Last Admin: 08/15/18 09:57 Dose: 100 mg Methylprednisolone (Solu-Medrol) 40 mg IVP Q6H [facility] Last Admin: 08/15/18 10:47 Dose: 40 mg Montelukast Sodium (Singulair) 10 mg PO HS CAS Last Admin: 08/14/18 21:23 Dose: 10 mg Pantoprazole Sodium (Protonix Inj) 40 mg IVP DAILY [facility] Last Admin: 08/15/18 10:47 Dose: 40 mg Paroxetine HCl (Paxil) 30 mg PO DAILY [facility] Last Admin: 08/15/18 09:58 Dose: 30 mg Ticagrelor (Brilinta) 90 mg PO BID CAS Zolpidem Tartrate (Ambien) 5 mg PO HS PRN PRN Reason: Insomnia Last Admin: 08/15/18 01:53 Dose: 5 mg - Labs Labs: 08/15/18 08:14 08/15/18 02:07 PT 12.3 SECONDS (9.7-12.2) H 08/13/18 20:36 INR 1.1 08/13/18 20:36 APTT 28 SECONDS (21-34) 08/13/18 20:36 Attending/Attestation - Attestation I have personally seen and examined this patient.: Yes I have fully participated in the care of the patient.: Yes I have reviewed all pertinent clinical information, including history, physical exam and plan: Yes Notes (Text): Patient seen, examined, and case discussed with day-time resident. Patient seen this morning. Patient denies chest pain, denies palpitation, shortness of breathe is about the same, reports nausea and dyspepsia last evening. Patient's second and third troponin became positive. Patient given Aspirin, loading dose of Brilinta, and started on Heparin drip. (patient has renal insuffiency which was not started on therapuetic lovenox). Office Clerk Assistant informed this morning by resident in light of positive 2nd troponin. Patient's white count is elevated, but she was started on IV solumedrol yesterday and has IV zosyn to cover for pneumonia. We will follow-up cardiology, Dr Jimenez, plan for cardiac cath in the AM and recommend for the echo to be completed early in the AM prior to cath. I have placed a nursing communication as well. I have also spoken with Dr. Kevin Guajardo, PMD, to update him regarding plans for cath for his private patient in the AM. Assessment/Plan 1. Chest Pain Elevated Troponin Assessment/Plan * Cardiology (Dr. Cruz) on consult-->Dr. jimenez is covering over this weekend for dr. cruz * Etiology: angina, pleuritis?, costochondritis * Cardiac risk factors: hypertension, elevated cholestrol, grandson (DE/CABG) * 2nd Troponin: 0.1760-->0.2020 * Resident has spoken with Dr. Jimenez, start loading dose of Brilinta, Aspirin, and start heparin drip * pending Echo * BNP WNL; not clinically overloaded on exam * hgba1c: 6.0 * Lipid panel: T, cholesterol:204, LDL: 95, HDl: 65, TSH: 0.46 * Aspirin 81mg PO daily * Brilinta 180mg PO X1, Brilinta 90mg PO BID * Heparin drip * start Crestor 10mg PO qHS 2. Idiopathic Pulmonary Fibrosis exacerbation Possible Healthcare Care Associated Pneumonia COPD excerbation with acute bronchitis Assessment/Plan * Pulmonary Dr. Praful Garcia on consult--> help appreciated * Solumedrol 40mg IV Q6H * Albuterol PRN and Duonebs Q3H PRN for SOB * Singulair 10mg PO qHS * c/w Pirfenidone 267mg TID (patients own medication) * ABG did not show patient was retaining Co2; can talk in full sentences but states has to "move slowly", does not use CPAP/BiPap at home * Zosyn 3.375 Q6H for change in color of sputum; will continue as per pulm because of recent episode of pneumonia (active since 08/14/18) * chest xray: decreased air space per my read 3. Hypertension Assessment/Plan * Losartan 100mg PO daily * HCTZ 25mg PO daily * check vital signs 4. Hx of Depression/anxiety Assessment/Plan * c/w paxil 30mg daily 5. Hx of Gerd Assessment/Plan * Protonix 40mg IV q daily 6. Renal insufficiency Assessment/Plan * monitor BUN/Cr 7. Prophylactic measure * Heparin drip for nonstemi * protonix 40mg IV q daily * PT/OT eval * PMD: Kevin Guajardo-->on blue list, could not admit * PT/OT eval * NPO after midnight Disposition: patient is planned for cardiac cath tomorrow in the AM; discussed with Dr. Jimenez who is covering Dr. Cruz. NPO after midnight.
[2018-08-15] MEDS: Heparin25000 units/250ml 1/2NS 25,000 UNITS/250 ML BAG IV PRN (09:30)
[2018-08-15] MEDS: ESBRIET 267 MG PO SCH ×3 (09:56→18:05)
[2018-08-15 10:38] LABS: LYMPHOCYTE 7 % (20-40); MONOCYTE 2 % (0-10); NEUTROPHIL 91 % (50-75); TOTAL CELLS COUNTED 100
[2018-08-15 10:40] LABS: PLATELET ESTIMATE NORMAL (NORMAL)
[2018-08-15 10:42] LABS: ANISOCYTOSIS SLIGHT; HYPOCHROMIC SLIGHT; POLYCHROMIC SLIGHT; TOXIC GRANULATION PRESENT
[2018-08-15 14:32] LABS: CK-MB 1.39 ng/mL (0.0-3.38); TROPONIN I 0.153 ng/mL (0.00-0.120)
--- NOTE | 2018-08-15 15:12 | CP.PCM.PN ---
Subjective - Date & Time of Evaluation Date of Evaluation: 08/15/18 Time of Evaluation: 14:20 - Subjective Subjective: the patient seen and examined Breathing much improved No further chest pain On heparin drip for elevated troponins Cardiac workup Continue steroids Continue nebulizer treatment Continue esberiet Objective - Vital Signs/Intake and Output Vital Signs (last 24 hours): Temp Pulse Resp BP Pulse Ox 98.0 F 76 18 134/68 96 08/15/18 07:00 08/15/18 07:00 08/15/18 07:00 08/15/18 07:00 08/15/18 08:09 Intake and Output: 08/15/18 08/15/18 06:59 18:59 Intake Total 200 Balance 200 - Medications Medications: Current Medications Albuterol Sulfate (Albuterol 0.083% Inhal Jennifer (2.5 Mg/3 Ml) Ud) 2.5 mg IH RQ3 CAS Last Admin: 08/15/18 08:30 Dose: 2.5 mg Albuterol/Ipratropium (Duoneb 3 Mg/0.5 Mg (3 Ml) Ud) 3 ml INH RQ6 CAS Last Admin: 08/15/18 07:42 Dose: 3 ml Aspirin (Ecotrin) 81 mg PO DAILY [facility] Home Med (Patient's Own Medication) 3 tab PO TID CAS Last Admin: 08/15/18 13:08 Dose: 3 tab Hydrochlorothiazide (Hydrodiuril) 25 mg PO DAILY [facility] Last Admin: 08/15/18 09:57 Dose: 25 mg Piperacillin Sod/Tazobactam Sod (Zosyn 3.375 Gm Iv Premix) 3.375 gm in 50 mls @ 100 mls/hr IVPB Q6H CAS; Protocol Last Admin: 08/15/18 09:07 Dose: 100 mls/hr Heparin Sodium/Sodium Chloride (Heparin 29548 Units/250ml 1/2 Normal Saline) 25,000 units in 250 mls @ 9.253 mls/hr IV .Q24H PRN; Protocol PRN Reason: ADJUST RATE PER PROTOCOL Last Admin: 08/15/18 09:30 Dose: 12 units/kg/hr, 9.253 mls/hr Losartan Potassium (Cozaar) 100 mg PO DAILY [facility] Last Admin: 08/15/18 09:57 Dose: 100 mg Methylprednisolone (Solu-Medrol) 40 mg IVP Q6H [facility] Last Admin: 08/15/18 10:47 Dose: 40 mg Montelukast Sodium (Singulair) 10 mg PO HS [facility] Last Admin: 08/14/18 21:23 Dose: 10 mg Pantoprazole Sodium (Protonix Inj) 40 mg IVP DAILY [facility] Last Admin: 08/15/18 10:47 Dose: 40 mg Paroxetine HCl (Paxil) 30 mg PO DAILY [facility] Last Admin: 08/15/18 09:58 Dose: 30 mg Rosuvastatin Calcium (Crestor) 10 mg PO HS CAS Ticagrelor (Brilinta) 90 mg PO BID [facility] Zolpidem Tartrate (Ambien) 5 mg PO HS PRN PRN Reason: Insomnia Last Admin: 08/15/18 01:53 Dose: 5 mg - Labs Labs: 08/15/18 08:14 08/15/18 02:07 PT 12.3 SECONDS (9.7-12.2) H 08/13/18 20:36 INR 1.1 08/13/18 20:36 APTT 28 SECONDS (21-34) 08/13/18 20:36 Assessment and Plan (1) COPD (chronic obstructive pulmonary disease) with acute bronchitis Status: Acute (2) IPF (idiopathic pulmonary fibrosis) Status: Chronic
--- NOTE | 2018-08-15 17:20 | CP.PCM.PN ---
Subjective - Date & Time of Evaluation Date of Evaluation: 08/15/18 Time of Evaluation: 17:16 - Subjective Subjective: Feeling better, Family bed side. No new episodes of chest pain. Objective - Vital Signs/Intake and Output Vital Signs (last 24 hours): Temp Pulse Resp BP Pulse Ox 98.0 F 76 18 134/68 96 08/15/18 07:00 08/15/18 07:00 08/15/18 07:00 08/15/18 07:00 08/15/18 08:09 Intake and Output: 08/15/18 08/15/18 06:59 18:59 Intake Total 200 Balance 200 - Medications Medications: Current Medications Albuterol Sulfate (Albuterol 0.083% Inhal Jennifer (2.5 Mg/3 Ml) Ud) 2.5 mg IH RQ3 CAS Last Admin: 08/15/18 14:00 Dose: 2.5 mg Albuterol/Ipratropium (Duoneb 3 Mg/0.5 Mg (3 Ml) Ud) 3 ml INH RQ6 CAS Last Admin: 08/15/18 14:00 Dose: 3 ml Aspirin (Ecotrin) 81 mg PO DAILY [facility] Home Med (Patient's Own Medication) 3 tab PO TID [facility] Last Admin: 08/15/18 13:08 Dose: 3 tab Hydrochlorothiazide (Hydrodiuril) 25 mg PO DAILY [facility] Last Admin: 08/15/18 09:57 Dose: 25 mg Piperacillin Sod/Tazobactam Sod (Zosyn 3.375 Gm Iv Premix) 3.375 gm in 50 mls @ 100 mls/hr IVPB Q6H [facility]; Protocol Last Admin: 08/15/18 09:07 Dose: 100 mls/hr Heparin Sodium/Sodium Chloride (Heparin 16601 Units/250ml 1/2 Normal Saline) 25,000 units in 250 mls @ 9.253 mls/hr IV .Q24H PRN; Protocol PRN Reason: ADJUST RATE PER PROTOCOL Last Admin: 08/15/18 09:30 Dose: 12 units/kg/hr, 9.253 mls/hr Losartan Potassium (Cozaar) 100 mg PO DAILY [facility] Last Admin: 08/15/18 09:57 Dose: 100 mg Methylprednisolone (Solu-Medrol) 40 mg IVP Q6H [facility] Last Admin: 08/15/18 10:47 Dose: 40 mg Montelukast Sodium (Singulair) 10 mg PO HS [facility] Last Admin: 08/14/18 21:23 Dose: 10 mg Pantoprazole Sodium (Protonix Inj) 40 mg IVP DAILY [facility] Last Admin: 08/15/18 10:47 Dose: 40 mg Paroxetine HCl (Paxil) 30 mg PO DAILY [facility] Last Admin: 08/15/18 09:58 Dose: 30 mg Rosuvastatin Calcium (Crestor) 10 mg PO HS [facility] Ticagrelor (Brilinta) 90 mg PO BID [facility] Zolpidem Tartrate (Ambien) 5 mg PO HS PRN PRN Reason: Insomnia Last Admin: 08/15/18 01:53 Dose: 5 mg - Labs Labs: 08/15/18 08:14 08/15/18 02:07 PT 12.3 SECONDS (9.7-12.2) H 08/13/18 20:36 INR 1.1 08/13/18 20:36 APTT 91 SECONDS (21-34) H D 08/15/18 15:46 - Head Exam Head Exam: NORMOCEPHALIC - Neck Exam Neck Exam: Normal Inspection - Respiratory Exam Respiratory Exam: NORMAL BREATHING PATTERN - Cardiovascular Exam Cardiovascular Exam: REGULAR RHYTHM - Extremities Exam Extremities Exam: Normal Inspection - Neurological Exam Neurological Exam: Alert, Oriented x3 Assessment and Plan (1) COPD (chronic obstructive pulmonary disease) with acute bronchitis Status: Acute (2) ACS (acute coronary syndrome) Assessment & Plan: Patient with multiple medical risk factor for CAD, Positive troponin. Continue DAPT with heparin. Discussed with patient and family for possible cath and intervention. Keep NPO after mid night for possible cath. Status: Acute
[2018-08-16] MEDS: Albuterol 0.083% Inhal Sol (2.5 mg/3 mL) UD IH SCH ×5 (02:03→19:47)
[2018-08-16] MEDS: Albuterol-Ipratrop 3 mg / 0.5 (3 ml) UD INH SCH ×4 (02:04→19:47)
[2018-08-16] MEDS: MethylPREDNISolone 40 mg Vial IVP SCH ×4 (04:15→22:01)
[2018-08-16] MEDS: Piperacill/Tazo 3.375gm in Dex 3.375 GM/50 ML BAG IVPB SCH ×3 (04:15→21:37)
[2018-08-16 06:27] LABS: BASO % 0.1 % (0.0-2.0); HEMOGLOBIN 9.9 g/dL (11.0-16.0); LYMPH # 0.7 K/uL (1.0-4.3); LYMPH % 4.5 % (20.0-40.0); MEAN CORPUSCULAR HEMOGLOBIN 28.7 pg (27.0-31.0); MEAN CORPUSCULAR HGB CONC 32.2 g/dL (33.0-37.0); MEAN PLATELET VOLUME 7.8 fL (7.2-11.7); MONO # 0.3 K/uL (0.0-0.8); MONO % 2.2 % (0.0-10.0); NEUT % 93.2 % (50.0-75.0); NRBC % 0.1 % (0.0-2.0); PLATELET COUNT 319 K/uL (130-400); RBC 3.46 Mil/uL (3.80-5.20); RED CELL DISTRIBUTION WIDTH 16.1 % (11.5-14.5); WHITE BLOOD COUNT 15.1 K/uL (4.8-10.8)
[2018-08-16 06:35] LABS: INR 1.2; PROTHROMBIN TIME 12.7 SECONDS (9.7-12.2)
[2018-08-16 06:56] LABS: ALBUMIN 3.2 g/dL (3.5-5.0); CALCIUM 8.4 mg/dl (8.6-10.4)
--- NOTE | 2018-08-16 08:54 | CP.PCM.PCO ---
Physician Communication Note - Physician Communication Note Physician Communication Note: Please arrange for [facility] for cardiac cath scheduled m 08/16 with
[2018-08-16] MEDS: ESBRIET 267 MG PO SCH ×4 (09:13→22:01)
[2018-08-16 09:29] LABS: ANISOCYTOSIS SLIGHT; HYPOCHROMIC SLIGHT; LYMPHOCYTE 1 % (20-40); MONOCYTE 4 % (0-10); NEUTROPHIL 95 % (50-75); PLATELET ESTIMATE NORMAL (NORMAL); POIKILOCYTOSIS SLIGHT; TOTAL CELLS COUNTED 100
[2018-08-16 09:30] LABS: TEARDROP CELLS SLIGHT
[2018-08-16] MEDS: Heparin25000 units/250ml 1/2NS 25,000 UNITS/250 ML BAG IV PRN (10:27)
--- NOTE | 2018-08-16 11:03 | CP.PCM.PN ---
Subjective - Date & Time of Evaluation Date of Evaluation: 08/16/18 Time of Evaluation: 11:01 - Subjective Subjective: Patient seen and evaluated Feeling better. No new episodes of chest pain. Physical examination - Head Exam Head Exam: NORMOCEPHALIC - Neck Exam Neck Exam: Normal Inspection - Respiratory Exam Respiratory Exam: NORMAL BREATHING PATTERN - Cardiovascular Exam Cardiovascular Exam: REGULAR RHYTHM - Extremities Exam Extremities Exam: Normal Inspection - Neurological Exam Neurological Exam: Alert, Oriented x3 Assessment and Plan (1) COPD (chronic obstructive pulmonary disease) with acute bronchitis Status: Acute (2) ACS (acute coronary syndrome) Assessment & Plan: Patient with multiple medical risk factor for CAD, Positive troponin. Continue DAPT with heparin. Patient for cardiac cath today Objective - Vital Signs/Intake and Output Vital Signs (last 24 hours): Temp Pulse Resp BP Pulse Ox 97.7 F 100 H 18 151/72 H 98 08/16/18 07:12 08/16/18 07:12 08/16/18 07:12 08/16/18 07:12 08/16/18 07:12 Intake and Output: 08/16/18 08/16/18 06:59 18:59 Intake Total 250 Balance 250 - Medications Medications: Current Medications Albuterol Sulfate (Albuterol 0.083% Inhal Jennifer (2.5 Mg/3 Ml) Ud) 2.5 mg IH RQ3 [facility] Last Admin: 08/16/18 02:03 Dose: Not Given Albuterol/Ipratropium (Duoneb 3 Mg/0.5 Mg (3 Ml) Ud) 3 ml INH RQ6 CAS Last Admin: 08/16/18 02:04 Dose: 3 ml Aspirin (Ecotrin) 81 mg PO DAILY [facility] Last Admin: 08/16/18 09:29 Dose: 81 mg Home Med (Patient's Own Medication) 3 tab PO TID [facility] Last Admin: 08/16/18 09:13 Dose: 3 tab Hydrochlorothiazide (Hydrodiuril) 25 mg PO DAILY [facility] Last Admin: 08/16/18 09:20 Dose: 25 mg Piperacillin Sod/Tazobactam Sod (Zosyn 3.375 Gm Iv Premix) 3.375 gm in 50 mls @ 100 mls/hr IVPB Q6H [facility]; Protocol Last Admin: 08/16/18 04:15 Dose: 100 mls/hr Heparin Sodium/Sodium Chloride (Heparin 96628 Units/250ml 1/2 Normal Saline) 25,000 units in 250 mls @ 9.253 mls/hr IV .Q24H PRN; Protocol PRN Reason: ADJUST RATE PER PROTOCOL Last Admin: 08/16/18 10:27 Dose: 12 units/kg/hr, 9.253 mls/hr Losartan Potassium (Cozaar) 100 mg PO DAILY [facility] Last Admin: 08/16/18 09:13 Dose: 100 mg Methylprednisolone (Solu-Medrol) 40 mg IVP Q6H [facility] Last Admin: 08/16/18 04:15 Dose: 40 mg Montelukast Sodium (Singulair) 10 mg PO HS [facility] Last Admin: 08/15/18 21:49 Dose: 10 mg Pantoprazole Sodium (Protonix Inj) 40 mg IVP DAILY [facility] Last Admin: 08/16/18 09:12 Dose: 40 mg Paroxetine HCl (Paxil) 30 mg PO DAILY [facility] Last Admin: 08/16/18 09:13 Dose: 30 mg Rosuvastatin Calcium (Crestor) 10 mg PO HS [facility] Last Admin: 08/15/18 21:49 Dose: 10 mg Ticagrelor (Brilinta) 90 mg PO BID [facility] Last Admin: 08/16/18 09:29 Dose: 90 mg Zolpidem Tartrate (Ambien) 5 mg PO HS PRN PRN Reason: Insomnia Last Admin: 08/15/18 01:53 Dose: 5 mg - Labs Labs: 08/16/18 06:23 08/16/18 06:23 PT 12.7 SECONDS (9.7-12.2) H 08/16/18 06:23 INR 1.2 08/16/18 06:23 APTT 79 SECONDS (21-34) H D 08/16/18 06:23
--- NOTE | 2018-08-16 14:47 | CP.PCM.PN ---
Subjective - Date & Time of Evaluation Date of Evaluation: 08/16/18 Time of Evaluation: 14:52 - Subjective Subjective: PGY-[address] Cannon Patient seen and examined at bedside this morning prior to transfer to [place] for cardiac cath. Patient stated that her chest pain had resolved. She was not complaining of any shortness of breath at rest, though admits to SOB with ambulation. Patient denies nausea, vomiting, diarrhea, dizziness, headache. Will follow up once patient returns from cardiac cath. Objective - Vital Signs/Intake and Output Vital Signs (last 24 hours): Temp Pulse Resp BP Pulse Ox 97.7 F 100 H 18 151/72 H 98 08/16/18 07:12 08/16/18 07:12 08/16/18 07:12 08/16/18 07:12 08/16/18 07:12 Intake and Output: 08/16/18 08/16/18 06:59 18:59 Intake Total 250 Balance 250 - Medications Medications: Current Medications Albuterol Sulfate (Albuterol 0.083% Inhal Jennifer (2.5 Mg/3 Ml) Ud) 2.5 mg IH RQ3 [facility] Last Admin: 08/16/18 11:50 Dose: Not Given Albuterol/Ipratropium (Duoneb 3 Mg/0.5 Mg (3 Ml) Ud) 3 ml INH RQ6 [facility] Last Admin: 08/16/18 07:55 Dose: Not Given Aspirin (Ecotrin) 81 mg PO DAILY [facility] Last Admin: 08/16/18 09:29 Dose: 81 mg Home Med (Patient's Own Medication) 3 tab PO TID [facility] Last Admin: 08/16/18 13:49 Dose: Not Given Hydrochlorothiazide (Hydrodiuril) 25 mg PO DAILY [facility] Last Admin: 08/16/18 09:20 Dose: 25 mg Piperacillin Sod/Tazobactam Sod (Zosyn 3.375 Gm Iv Premix) 3.375 gm in 50 mls @ 100 mls/hr IVPB Q6H [facility]; Protocol Last Admin: 08/16/18 13:49 Dose: Not Given Heparin Sodium/Sodium Chloride (Heparin 25237 Units/250ml 1/2 Normal Saline) 25,000 units in 250 mls @ 9.253 mls/hr IV .Q24H PRN; Protocol PRN Reason: ADJUST RATE PER PROTOCOL Last Admin: 08/16/18 10:27 Dose: 12 units/kg/hr, 9.253 mls/hr Losartan Potassium (Cozaar) 100 mg PO DAILY [facility] Last Admin: 08/16/18 09:13 Dose: 100 mg Methylprednisolone (Solu-Medrol) 40 mg IVP Q6H [facility] Last Admin: 08/16/18 13:49 Dose: Not Given Montelukast Sodium (Singulair) 10 mg PO HS [facility] Last Admin: 08/15/18 21:49 Dose: 10 mg Pantoprazole Sodium (Protonix Inj) 40 mg IVP DAILY [facility] Last Admin: 08/16/18 09:12 Dose: 40 mg Paroxetine HCl (Paxil) 30 mg PO DAILY [facility] Last Admin: 08/16/18 09:13 Dose: 30 mg Rosuvastatin Calcium (Crestor) 10 mg PO HS [facility] Last Admin: 08/15/18 21:49 Dose: 10 mg Ticagrelor (Brilinta) 90 mg PO BID [facility] Last Admin: 08/16/18 09:29 Dose: 90 mg Zolpidem Tartrate (Ambien) 5 mg PO HS PRN PRN Reason: Insomnia Last Admin: 08/15/18 01:53 Dose: 5 mg - Labs Labs: 08/16/18 06:23 08/16/18 06:23 PT 12.7 SECONDS (9.7-12.2) H 08/16/18 06:23 INR 1.2 08/16/18 06:23 APTT 79 SECONDS (21-34) H D 08/16/18 06:23 - Head Exam Head Exam: ATRAUMATIC, NORMOCEPHALIC - Eye Exam Eye Exam: EOMI, Normal appearance - ENT Exam ENT Exam: Mucous Membranes Moist - Respiratory Exam Respiratory Exam: Clear to Ausculation Bilateral, NORMAL BREATHING PATTERN. absent: Rhonchi, Wheezes - GI/Abdominal Exam GI & Abdominal Exam: Soft, Normal Bowel Sounds. absent: Tenderness - Extremities Exam Extremities Exam: absent: Pedal Edema, Tenderness - Neurological Exam Neurological Exam: Alert, Awake, Oriented x3 - Psychiatric Exam Psychiatric exam: Normal Affect, Normal Mood - Skin Skin Exam: Dry, Intact Assessment and Plan - Assessment and Plan (Free Text) Assessment: 83yo F admitted for chest pain Chest Pain--NSTEMI -initial MINOR negative; 2nd .18, 3rd .2-->NSTEMI --> Repeat 0.15 following heparin drip -EKG shows partial block on 8am; changed from previous; no STEMI -heparin drip w/ bolus -brilanta loading given; 90mg BID after -Aspirin loading; 81mg PO daily after -Dr. Cruz/Dr. Jimenez on consult -Cardiac cath today at [facility]. Patient to be transferred back to [facility] following procedure. -f/u Echo -BNP WNL; not clinically overloaded on exam IPF; acute on chronic exacerbation -Dr. Praful Garcia; pulmonology; thank you for your help -c/w solumedrol Q6H 40mg IV -c/w Albuterol PRN and Duonebs Q3H PRN for SOB -c/w monteleukast -c/w Pirfenidone 267mg TID (patients own medication) -ABG did not show patient was retaining Co2; can talk in full sentences but states has to "move slowly", does not use CPAP/BiPap at home -Zosyn 3.375 Q6H for change in color of sputum; will continue as per pulm Hx of HTN -c/w losartan 100mg -c/w Hctz 25mg Hx of Depression/anxiety -c/w paxil 30mg daily -do not discontinue rapidly as this can cause severe side effects hx of Gerd -continue with h2 liv Proph -lovenox Sc 30mg; 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 Kassandra Rossi, PGY-1
[2018-08-17] MEDS: Albuterol 0.083% Inhal Sol (2.5 mg/3 mL) UD IH SCH ×4 (00:20→11:45)
[2018-08-17] MEDS: Albuterol-Ipratrop 3 mg / 0.5 (3 ml) UD INH SCH ×4 (03:00→20:08)
[2018-08-17] MEDS: MethylPREDNISolone 40 mg Vial IVP SCH ×4 (05:21→22:14)
[2018-08-17 06:58] LABS: HEMOGLOBIN 9.9 g/dL (11.0-16.0); LYMPH # 1.1 K/uL (1.0-4.3); LYMPH % 8.6 % (20.0-40.0); MEAN CELL VOLUME 89.9 fL (81.0-99.0); MEAN CORPUSCULAR HEMOGLOBIN 29.2 pg (27.0-31.0); MEAN CORPUSCULAR HGB CONC 32.5 g/dL (33.0-37.0); MEAN PLATELET VOLUME 7.9 fL (7.2-11.7); MONO # 0.5 K/uL (0.0-0.8); MONO % 4.1 % (0.0-10.0); NEUT # 11.1 K/uL (1.8-7.0); NEUT % 87.3 % (50.0-75.0); PLATELET COUNT 324 K/uL (130-400); RBC 3.39 Mil/uL (3.80-5.20); RED CELL DISTRIBUTION WIDTH 16.2 % (11.5-14.5); WHITE BLOOD COUNT 12.7 K/uL (4.8-10.8)
[2018-08-17 07:41] LABS: ALB/GLOB RATIO 1.1 (1.0-2.1); ALBUMIN 3.4 g/dL (3.5-5.0); ALT/SGPT 15 U/L (9-52); AST/SGOT 32 U/L (14-36); BLOOD UREA NITROGEN 30 mg/dL (7-17); CALCIUM 8.5 mg/dl (8.6-10.4); GFR NON-AFRICAN AMERICAN 53
--- NOTE | 2018-08-17 08:38 | CARD ---
APPROVED REPORT Date of service: 08/15/2018 EKG Measurement Heart [id number] <Conclusion> Sinus tachycardia Possible Left atrial enlargement Left anterior fascicular block Possible Anterolateral infarct, age undetermined Abnormal ECG
--- NOTE | 2018-08-17 08:39 | CARD ---
APPROVED REPORT Date of service: 08/15/2018 EKG Measurement Heart [id number] <Conclusion> Normal sinus rhythm Left axis deviation Abnormal ECG
[2018-08-17 10:17] LABS: LYMPHOCYTE 10 % (20-40); MONOCYTE 3 % (0-10); NEUTROPHIL 87 % (50-75); PLATELET ESTIMATE NORMAL (NORMAL); TOTAL CELLS COUNTED 100
[2018-08-17 10:18] LABS: ANISOCYTOSIS SLIGHT
[2018-08-17] MEDS: ESBRIET 267 MG PO SCH ×3 (10:30→17:17)
[2018-08-17] MEDS: Piperacill/Tazo 3.375gm in Dex 3.375 GM/50 ML BAG IVPB SCH ×3 (11:13→22:14)
--- NOTE | 2018-08-17 13:03 | CARD ---
APPROVED REPORT Date of service: 08/16/2018 EXAM: Two-dimensional and M-mode echocardiogram with Doppler and color Doppler. Other Information Quality : GoodRhythm : INDICATION Dyspnea Peripheral Edema Chest Pain COPD RISK FACTORS Hypertension Hyperlipidemia 2D DIMENSIONS IVSd1.1 (0.7-1.1cm)Aortic Root (2D)2.6 (2.0-3.7cm) LVDd4.1 (3.9-5.9cm)PWd1.2 (0.7-1.1cm) LA Wpsfyo30 (18-58mL)LVDs2.2 (2.5-4.0cm) FS (%) 44.8 %LVEF (%)76.6 (>50%) LVEF (Correia's)65 %IVC0.00 cm M-Mode DIMENSIONS Left Atrium (MM)3.99 (2.5-4.0cm)IVSd0.76 (0.7-1.1cm) Aortic Root2.50 (2.2-3.7cm)LVDd4.98 (4.0-5.6cm) Aortic Cusp Exc.1.11 (1.5-2.0cm)PWd1.06 (0.7-1.1cm) FS (%) 40 %LVDs3.01 (2.0-3.8cm) LVEF (%)70 (>50%) Aortic Valve AoV Peak Bwuedsyd921.5cm/sAoV VTI40.8cmAO Peak GR.14mmHg AO Mean GR.8mmHg Mitral Valve MV E Bwtiobrh70.5cm/sMV A Azfemqhp307.0cm/sE/A ratio0.5 TDI Lateral E' Peak V5.71cm/sMedial E' Peak V6.29cm/sE/Lateral E'11.8 E/Medial E'10.7 Tricuspid Valve TR Peak Sgfyumbu571rn/sTR Peak Gr.66eeRyJHLJ56eeWb LEFT VENTRICLE The left ventricle is normal size. There is normal left ventricular wall thickness. Left ventricle systolic function is normal. The Ejection Fraction is 65-70%. There is normal LV segmental wall motion. Tissue Doppler imaging reveals abnormal left ventricular diastolic dysfunction. RIGHT VENTRICLE The right ventricle is normal size. There is normal right ventricular wall thickness. The right ventricular systolic function is normal. ATRIA The left atrium size is normal. The right atrium size is normal. The interatrial septum is intact with no evidence for an atrial septal defect. AORTIC VALVE The aortic valve is normal in structure. No aortic regurgitation is present. There is no aortic valvular stenosis. MITRAL VALVE The mitral valve is normal in structure. There is no evidence of mitral valve prolapse. There is no mitral valve stenosis. There is no mitral valve regurgitation noted. TRICUSPID VALVE The tricuspid valve is normal in structure. There is trace to mild tricuspid regurgitation. Right ventricular systolic pressure is estimated at less than 30 mmHg. There is no pulmonary hypertension. PULMONIC VALVE The pulmonic valve is not well visualized. There is no pulmonic valvular regurgitation. GREAT VESSELS The aortic root is normal in size. PERICARDIAL EFFUSION There is no significant pericardial effusion. <Conclusion> Left ventricle systolic function is normal. The Ejection Fraction is 65-70%. Diastolic dysfunction. No aortic regurgitation is present. There is no mitral valve regurgitation noted. There is trace to mild tricuspid regurgitation. There is no pulmonary hypertension. There is no pulmonic valvular regurgitation.
--- NOTE | 2018-08-17 14:30 | CP.PCM.PN ---
Subjective - Date & Time of Evaluation Date of Evaluation: 08/17/18 Time of Evaluation: 11:20 - Subjective Subjective: patient seen and examined status post cardiac cath yesterday Breathing much improved Afebrile No chest pain Objective - Vital Signs/Intake and Output Vital Signs (last 24 hours): Temp Pulse Resp BP Pulse Ox 98.4 F 64 18 147/67 95 08/17/18 07:00 08/17/18 07:00 08/17/18 07:00 08/17/18 07:00 08/17/18 07:00 - Medications Medications: Current Medications Albuterol Sulfate (Albuterol 0.083% Inhal Jennifer (2.5 Mg/3 Ml) Ud) 2.5 mg IH RQ3 [facility] Last Admin: 08/17/18 11:45 Dose: 2.5 mg Albuterol/Ipratropium (Duoneb 3 Mg/0.5 Mg (3 Ml) Ud) 3 ml INH RQ6 [facility] Last Admin: 08/17/18 14:00 Dose: 3 ml Aspirin (Ecotrin) 81 mg PO DAILY [facility] Last Admin: 08/17/18 10:29 Dose: 81 mg Heparin Sodium (Porcine) (Heparin) 5,000 units SC BID [facility] Last Admin: 08/17/18 10:30 Dose: 5,000 units Home Med (Patient's Own Medication) 3 tab PO TID [facility] Last Admin: 08/17/18 13:54 Dose: 3 tab Hydrochlorothiazide (Hydrodiuril) 25 mg PO DAILY [facility] Last Admin: 08/17/18 10:30 Dose: 25 mg Piperacillin Sod/Tazobactam Sod (Zosyn 3.375 Gm Iv Premix) 3.375 gm in 50 mls @ 100 mls/hr IVPB Q6H [facility]; Protocol Last Admin: 08/17/18 11:13 Dose: 100 mls/hr Losartan Potassium (Cozaar) 100 mg PO DAILY [facility] Last Admin: 08/17/18 10:29 Dose: 100 mg Methylprednisolone (Solu-Medrol) 40 mg IVP Q6H [facility] Last Admin: 08/17/18 11:16 Dose: 40 mg Montelukast Sodium (Singulair) 10 mg PO HS [facility] Last Admin: 08/16/18 22:01 Dose: 10 mg Pantoprazole Sodium (Protonix Inj) 40 mg IVP DAILY [facility] Last Admin: 08/17/18 10:31 Dose: 40 mg Paroxetine HCl (Paxil) 30 mg PO DAILY [facility] Last Admin: 08/17/18 10:30 Dose: 30 mg Rosuvastatin Calcium (Crestor) 10 mg PO HS [facility] Last Admin: 08/16/18 22:01 Dose: 10 mg Ticagrelor (Brilinta) 90 mg PO BID [facility] Last Admin: 08/17/18 10:29 Dose: 90 mg Zolpidem Tartrate (Ambien) 5 mg PO HS PRN PRN Reason: Insomnia Last Admin: 08/16/18 22:01 Dose: 5 mg - Labs Labs: 08/17/18 06:41 08/17/18 06:41 PT 12.7 SECONDS (9.7-12.2) H 08/16/18 06:23 INR 1.2 08/16/18 06:23 APTT 79 SECONDS (21-34) H D 08/16/18 06:23 - Head Exam Head Exam: ATRAUMATIC, NORMOCEPHALIC - ENT Exam ENT Exam: Mucous Membranes Moist - Neck Exam Neck Exam: Normal Inspection - Respiratory Exam Respiratory Exam: Clear to Ausculation Bilateral, Rales - Cardiovascular Exam Cardiovascular Exam: REGULAR RHYTHM - GI/Abdominal Exam GI & Abdominal Exam: Soft Assessment and Plan (1) COPD (chronic obstructive pulmonary disease) with acute bronchitis Assessment & Plan: Taper IV steroids Nebulizer treatment Antibiotics Status post cardiac cath Status: Acute (2) IPF (idiopathic pulmonary fibrosis) Status: Chronic
--- NOTE | 2018-08-17 19:09 | CP.PCM.PN ---
Subjective - Date & Time of Evaluation Date of Evaluation: 08/17/18 Time of Evaluation: 19:21 - Subjective Subjective: PGY-[address] Cannon Patient seen and examined at bedside. No acute events overnight. Patient has no new complaints at this time, denies any chest pain at rest or with exertion, only mild SOB with walking. Patient back from cath yesterday, tolerated procedure well. Patient denies chest pain, headache, nausea, vomiting, abdominal pain, dizziness. Objective - Vital Signs/Intake and Output Vital Signs (last 24 hours): Temp Pulse Resp BP Pulse Ox 97.7 F 102 H 20 144/71 94 L 08/17/18 16:34 08/17/18 16:34 08/17/18 16:34 08/17/18 16:34 08/17/18 16:34 - Medications Medications: Current Medications Albuterol Sulfate (Albuterol 0.083% Inhal Jennifer (2.5 Mg/3 Ml) Ud) 2.5 mg IH RQ3 [facility] Last Admin: 08/17/18 11:45 Dose: 2.5 mg Albuterol/Ipratropium (Duoneb 3 Mg/0.5 Mg (3 Ml) Ud) 3 ml INH RQ6 [facility] Last Admin: 08/17/18 14:00 Dose: 3 ml Aspirin (Ecotrin) 81 mg PO DAILY [facility] Last Admin: 08/17/18 10:29 Dose: 81 mg Heparin Sodium (Porcine) (Heparin) 5,000 units SC BID [facility] Last Admin: 08/17/18 17:16 Dose: 5,000 units Home Med (Patient's Own Medication) 3 tab PO TID [facility] Last Admin: 08/17/18 17:17 Dose: 3 tab Hydrochlorothiazide (Hydrodiuril) 25 mg PO DAILY [facility] Last Admin: 08/17/18 10:30 Dose: 25 mg Piperacillin Sod/Tazobactam Sod (Zosyn 3.375 Gm Iv Premix) 3.375 gm in 50 mls @ 100 mls/hr IVPB Q6H [facility]; Protocol Last Admin: 08/17/18 17:16 Dose: 100 mls/hr Losartan Potassium (Cozaar) 100 mg PO DAILY [facility] Last Admin: 08/17/18 10:29 Dose: 100 mg Methylprednisolone (Solu-Medrol) 40 mg IVP Q6H [facility] Last Admin: 08/17/18 17:16 Dose: 40 mg Montelukast Sodium (Singulair) 10 mg PO HS [facility] Last Admin: 08/16/18 22:01 Dose: 10 mg Pantoprazole Sodium (Protonix Inj) 40 mg IVP DAILY [facility] Last Admin: 08/17/18 10:31 Dose: 40 mg Paroxetine HCl (Paxil) 30 mg PO DAILY [facility] Last Admin: 08/17/18 10:30 Dose: 30 mg Rosuvastatin Calcium (Crestor) 10 mg PO HS [facility] Last Admin: 08/16/18 22:01 Dose: 10 mg Ticagrelor (Brilinta) 90 mg PO BID [facility] Last Admin: 08/17/18 17:17 Dose: 90 mg Zolpidem Tartrate (Ambien) 5 mg PO HS PRN PRN Reason: Insomnia Last Admin: 08/16/18 22:01 Dose: 5 mg - Labs Labs: 08/17/18 06:41 08/17/18 06:41 PT 12.7 SECONDS (9.7-12.2) H 08/16/18 06:23 INR 1.2 08/16/18 06:23 APTT 79 SECONDS (21-34) H D 08/16/18 06:23 - Constitutional Appears: Non-toxic, No Acute Distress - Head Exam Head Exam: ATRAUMATIC, NORMAL INSPECTION - Eye Exam Eye Exam: EOMI, Normal appearance - ENT Exam ENT Exam: Mucous Membranes Moist - Respiratory Exam Respiratory Exam: Clear to Ausculation Bilateral, NORMAL BREATHING PATTERN. a bsent: Rales, Rhonchi, Wheezes - Cardiovascular Exam Cardiovascular Exam: REGULAR RHYTHM, +S1, +S2 - GI/Abdominal Exam GI & Abdominal Exam: Soft, Normal Bowel Sounds. absent: Tenderness - Extremities Exam Extremities Exam: Normal Inspection. absent: Pedal Edema Additional comments: Catheter incision R groin with dressings CDI, minimal tenderness at site - Neurological Exam Neurological Exam: Alert, Awake, Oriented x3 - Psychiatric Exam Psychiatric exam: Normal Affect, Normal Mood - Skin Skin Exam: Dry, Intact Assessment and Plan - Assessment and Plan (Free Text) Assessment: 83yo F admitted for chest pain. Consider discharge tomorrow if patient improving and PT okay's discharge to home. Chest Pain--NSTEMI -initial MINOR negative; 2nd .18, 3rd .2-->NSTEMI --> Repeat 0.15 following heparin drip -EKG shows partial block on 8am; changed from previous; no STEMI -heparin drip w/ bolus -brilanta loading given; 90mg BID after -Aspirin loading; 81mg PO daily after -Dr. Cruz/Dr. Jimenez on consult -Cardiac cath today yesterday showed nonobstructive CAD of multiple vessels with normal LV function. No intervention is needed at this time. -f/u Echo -BNP WNL; not clinically overloaded on exam IPF; acute on chronic exacerbation -Dr. Praful Garcia; pulmonology; thank you for your help -c/w Solumedrol d/c'd - tapering steroids -c/w Albuterol PRN and Duonebs Q3H PRN for SOB -c/w monteleukast -c/w Pirfenidone 267mg TID (patients own medication) -ABG did not show patient was retaining Co2; can talk in full sentences but states has to "move slowly", does not use CPAP/BiPap at home -Zosyn 3.375 Q6H for change in color of sputum; will continue as per pulm Hx of HTN -c/w losartan 100mg -c/w Hctz 25mg Hx of Depression/anxiety -c/w paxil 30mg daily -do not discontinue rapidly as this can cause severe side effects hx of Gerd -continue with h2 liv Proph -lovenox Sc 30mg; patient has lower chief yeoman clearance -h2 liv for GERD -Pt/OT Case discussed and seen with Dr. Kassandra Rossi, PGY-1
--- NOTE | 2018-08-17 19:50 | CP.PCM.PN ---
Subjective - Date & Time of Evaluation Date of Evaluation: 08/17/18 Time of Evaluation: 14:10 - Subjective Subjective: Patient seen and evaluated Feeling better. No new episodes of chest pain. Physical examination - Head Exam Head Exam: NORMOCEPHALIC - Neck Exam Neck Exam: Normal Inspection - Respiratory Exam Respiratory Exam: NORMAL BREATHING PATTERN - Cardiovascular Exam Cardiovascular Exam: REGULAR RHYTHM - Extremities Exam Extremities Exam: Normal Inspection - Neurological Exam Neurological Exam: Alert, Oriented x3 Assessment and Plan (1) COPD (chronic obstructive pulmonary disease) with acute bronchitis Status: Acute (2) ACS (acute coronary syndrome) Assessment & Plan: Patient with multiple medical risk factor for CAD, Positive troponin. Continue DAPT with heparin. S/P Cardiac cath: Non obstructive Coronaries Objective - Vital Signs/Intake and Output Vital Signs (last 24 hours): Temp Pulse Resp BP Pulse Ox 97.7 F 102 H 20 144/71 94 L 08/17/18 16:34 08/17/18 16:34 08/17/18 16:34 08/17/18 16:34 08/17/18 16:34 - Medications Medications: Current Medications Albuterol Sulfate (Albuterol 0.083% Inhal Jennifer (2.5 Mg/3 Ml) Ud) 2.5 mg IH RQ3 [facility] Last Admin: 08/17/18 11:45 Dose: 2.5 mg Albuterol/Ipratropium (Duoneb 3 Mg/0.5 Mg (3 Ml) Ud) 3 ml INH RQ6 [facility] Last Admin: 08/17/18 14:00 Dose: 3 ml Aspirin (Ecotrin) 81 mg PO DAILY [facility] Last Admin: 08/17/18 10:29 Dose: 81 mg Heparin Sodium (Porcine) (Heparin) 5,000 units SC BID [facility] Last Admin: 08/17/18 17:16 Dose: 5,000 units Home Med (Patient's Own Medication) 3 tab PO TID [facility] Last Admin: 08/17/18 17:17 Dose: 3 tab Hydrochlorothiazide (Hydrodiuril) 25 mg PO DAILY [facility] Last Admin: 08/17/18 10:30 Dose: 25 mg Piperacillin Sod/Tazobactam Sod (Zosyn 3.375 Gm Iv Premix) 3.375 gm in 50 mls @ 100 mls/hr IVPB Q6H [facility]; Protocol Last Admin: 08/17/18 17:16 Dose: 100 mls/hr Losartan Potassium (Cozaar) 100 mg PO DAILY [facility] Last Admin: 08/17/18 10:29 Dose: 100 mg Methylprednisolone (Solu-Medrol) 40 mg IVP Q6H [facility] Last Admin: 08/17/18 17:16 Dose: 40 mg Montelukast Sodium (Singulair) 10 mg PO HS [facility] Last Admin: 08/16/18 22:01 Dose: 10 mg Pantoprazole Sodium (Protonix Inj) 40 mg IVP DAILY [facility] Last Admin: 08/17/18 10:31 Dose: 40 mg Paroxetine HCl (Paxil) 30 mg PO DAILY [facility] Last Admin: 08/17/18 10:30 Dose: 30 mg Rosuvastatin Calcium (Crestor) 10 mg PO HS [facility] Last Admin: 08/16/18 22:01 Dose: 10 mg Ticagrelor (Brilinta) 90 mg PO BID [facility] Last Admin: 08/17/18 17:17 Dose: 90 mg Zolpidem Tartrate (Ambien) 5 mg PO HS PRN PRN Reason: Insomnia Last Admin: 08/16/18 22:01 Dose: 5 mg - Labs Labs: 08/17/18 06:41 08/17/18 06:41 PT 12.7 SECONDS (9.7-12.2) H 08/16/18 06:23 INR 1.2 08/16/18 06:23 APTT 79 SECONDS (21-34) H D 08/16/18 06:23
[2018-08-18] MEDS: Albuterol 0.083% Inhal Sol (2.5 mg/3 mL) UD IH SCH ×5 (00:10→16:08)
[2018-08-18] MEDS: Albuterol-Ipratrop 3 mg / 0.5 (3 ml) UD INH SCH ×3 (02:00→13:05)
[2018-08-18] MEDS: MethylPREDNISolone 40 mg Vial IVP SCH ×3 (05:08→18:16)
[2018-08-18] MEDS: Piperacill/Tazo 3.375gm in Dex 3.375 GM/50 ML BAG IVPB SCH ×3 (05:12→18:17)
[2018-08-18 06:16] LABS: BASO % 0.1 % (0.0-2.0); HEMOGLOBIN 9.6 g/dL (11.0-16.0); LYMPH # 0.9 K/uL (1.0-4.3); LYMPH % 7.9 % (20.0-40.0); MEAN CELL VOLUME 89.2 fL (81.0-99.0); MEAN CORPUSCULAR HEMOGLOBIN 29.5 pg (27.0-31.0); MEAN PLATELET VOLUME 7.6 fL (7.2-11.7); MONO # 0.5 K/uL (0.0-0.8); MONO % 4.6 % (0.0-10.0); NEUT # 9.5 K/uL (1.8-7.0); NEUT % 87.4 % (50.0-75.0); PLATELET COUNT 297 K/uL (130-400); RBC 3.26 Mil/uL (3.80-5.20); RED CELL DISTRIBUTION WIDTH 16.1 % (11.5-14.5); WHITE BLOOD COUNT 10.9 K/uL (4.8-10.8)
[2018-08-18 06:38] LABS: ALB/GLOB RATIO 1.3 (1.0-2.1); ALBUMIN 3.2 g/dL (3.5-5.0); CALCIUM 7.4 mg/dl (8.6-10.4)
[2018-08-18 07:45] VITALS: TEMP 97.9; O2SAT 95
[2018-08-18 08:40] LABS: ANISOCYTOSIS SLIGHT; HYPOCHROMIC SLIGHT; LYMPHOCYTE 9 % (20-40); MONOCYTE 4 % (0-10); NEUTROPHIL 87 % (50-75); PLATELET ESTIMATE NORMAL (NORMAL); POIKILOCYTOSIS SLIGHT; TOTAL CELLS COUNTED 100
[2018-08-18 08:41] LABS: LARGE PLATELETS PRESENT; OVALOCYTES SLIGHT
[2018-08-18] MEDS: ESBRIET 267 MG PO SCH ×4 (08:50→18:18)
--- NOTE | 2018-08-18 13:55 | CP.PCM.DIS ---
Provider - Provider Date of Admission: 08/13/18 23:17 Attending physician: Gabo Ceron MD Consults: 08/13/18 22:54 Physician Consult Stat Comment: PULMONARY FIBROSIS Consulting Provider: Yassine Basilio Consulting Physician: Yassine Basilio Reason for Consult: PULMONARY Additional Comments: ALREADY SPOKEN WITH 08/14/18 16:57 Cardiology Consult Routine Comment: Consulting Provider: Alejandro Cruz Consulting Physician: Alejandro Cruz Reason for Consult: chest pain Pulmonology Consult Routine Comment: Consulting Provider: Yassine Basilio Consulting Physician: Yassine Basilio Reason for Consult: IPF 08/14/18 17:01 Cardiology Consult Routine Comment: Consulting Provider: Guera Jimenez Consulting Physician: Guera Jimenez Reason for Consult: chest pain Time Spent in preparation of Discharge (in minutes): 45 Hospital Course - Lab Results Lab Results: Most Recent Lab Values WBC 10.9 K/uL (4.8-10.8) H 08/18/18 06:10 RBC 3.26 Mil/uL (3.80-5.20) L 08/18/18 06:10 Hgb 9.6 g/dL (11.0-16.0) L 08/18/18 06:10 Hct 29.1 % (34.0-47.0) L 08/18/18 06:10 MCV 89.2 fL (81.0-99.0) 08/18/18 06:10 MCH 29.5 pg (27.0-31.0) 08/18/18 06:10 MCHC 33.0 g/dL (33.0-37.0) 08/18/18 06:10 RDW 16.1 % (11.5-14.5) H 08/18/18 06:10 Plt Count 297 K/uL (130-400) 08/18/18 06:10 MPV 7.6 fL (7.2-11.7) 08/18/18 06:10 Neut % (Auto) 87.4 % (50.0-75.0) H 08/18/18 06:10 Lymph % (Auto) 7.9 % (20.0-40.0) L 08/18/18 06:10 [place] % (Auto) 4.6 % (0.0-10.0) 08/18/18 06:10 Eos % (Auto) 0.0 % (0.0-4.0) 08/18/18 06:10 Baso % (Auto) 0.1 % (0.0-2.0) 08/18/18 06:10 Neut # (Auto) 9.5 K/uL (1.8-7.0) H 08/18/18 06:10 Lymph # (Auto) 0.9 K/uL (1.0-4.3) L 08/18/18 06:10 [place] # (Auto) 0.5 K/uL (0.0-0.8) 08/18/18 06:10 Eos # (Auto) 0.0 K/uL (0.0-0.7) 08/18/18 06:10 Baso # (Auto) 0.0 K/uL (0.0-0.2) 08/18/18 06:10 Neutrophils % (Manual) 87 % (50-75) H 08/18/18 06:10 Lymphocytes % (Manual) 9 % (20-40) L 08/18/18 06:10 Monocytes % (Manual) 4 % (0-10) 08/18/18 06:10 Toxic Granulation Present 08/15/18 08:14 Platelet Estimate Normal (NORMAL) 08/18/18 06:10 Large Platelets Present 08/18/18 06:10 Polychromasia Slight 08/15/18 08:14 Hypochromasia (manual) Slight 08/18/18 06:10 Poikilocytosis (manual Slight 08/18/18 06:10 Anisocytosis (manual) Slight 08/18/18 06:10 Tear Drop Cells Slight 08/16/18 06:23 Ovalocytes Slight 08/18/18 06:10 PT 12.7 SECONDS (9.7-12.2) H 08/16/18 06:23 INR 1.2 08/16/18 06:23 APTT 79 SECONDS (21-34) H D 08/16/18 06:23 Puncture Site Rr 08/13/18 00:05 pCO2 38 mm/Hg (35-45) 08/13/18 00:05 pO2 105 mm/Hg (80-100) H 08/13/18 00:05 HCO3 25.6 mmol/L (21-28) 08/13/18 00:05 ABG pH 7.43 (7.35-7.45) 08/13/18 00:05 ABG Total CO2 26.4 mmol/L (22-28) 08/13/18 00:05 ABG O2 Saturation 97.2 % (95-98) 08/13/18 00:05 ABG Base Excess 0.9 mmol/L (-2.0-3.0) 08/13/18 00:05 ABG Hemoglobin 8.8 g/dL (11.7-17.4) L 08/13/18 00:05 ABG Carboxyhemoglobin 0.6 % (0.5-1.5) 08/13/18 00:05 POC ABG HHb (Measured) 2.8 % (0.0-5.0) 08/13/18 00:05 ABG Methemoglobin 0.6 % (0.0-3.0) 08/13/18 00:05 Rony Test Pos 08/13/18 00:05 Hgb O2 Saturation 96.0 % (95.0-98.0) 08/13/18 00:05 Liter Flow 5.0 08/13/18 00:05 Sodium 136 mmol/L (132-148) 08/18/18 06:10 Potassium 4.2 mmol/L (3.6-5.2) 08/18/18 06:10 Chloride 101 mmol/L (98-107) 08/18/18 06:10 Carbon Dioxide 28 mmol/L (22-30) 08/18/18 06:10 Anion Gap 12 (10-20) 08/18/18 06:10 BUN 29 mg/dL (7-17) H 08/18/18 06:10 Creatinine 1.2 mg/dL (0.7-1.2) 08/18/18 06:10 Est GFR ( Amer) 52 08/18/18 06:10 Est GFR (Non-Af Amer) 43 08/18/18 06:10 POC Glucose (mg/dL) 105 mg/dL (65-110) 08/13/18 20:41 Random Glucose 143 mg/dL (65-105) H 08/18/18 06:10 Hemoglobin A1c 6.0 % (4.2-6.5) 08/15/18 08:14 Calcium 7.4 mg/dl (8.6-10.4) L 08/18/18 06:10 Phosphorus 4.0 mg/dL (2.5-4.5) 08/18/18 06:10 Magnesium 2.1 mg/dL (1.6-2.3) 08/18/18 06:10 Total Bilirubin 0.4 mg/dL (0.2-1.3) 08/18/18 06:10 AST 18 U/L (14-36) 08/18/18 06:10 ALT 22 U/L (9-52) 08/18/18 06:10 Alkaline Phosphatase 62 U/L (38-126) 08/18/18 06:10 Total Creatine Kinase 77 U/L (30-135) 08/15/18 13:55 CK-MB (Mass) 1.39 ng/mL (0.0-3.38) 08/15/18 13:55 Troponin I 0.1530 ng/mL (0.00-0.120) H* 08/15/18 13:55 NT-Pro-B Natriuret Pep 186 pg/mL (0-900) 08/13/18 20:36 Total Protein 5.8 g/dL (6.3-8.3) L 08/18/18 06:10 Albumin 3.2 g/dL (3.5-5.0) L 08/18/18 06:10 Globulin 2.6 gm/dL (2.2-3.9) 08/18/18 06:10 Albumin/Globulin Ratio 1.3 (1.0-2.1) 08/18/18 06:10 Triglycerides 48 mg/dL (0-149) 08/15/18 02:07 Cholesterol 204 mg/dL (0-199) H 08/15/18 02:07 LDL Cholesterol Direct 95 mg/dL (0-129) 08/15/18 02:07 HDL Cholesterol 65 mg/dL (30-70) 08/15/18 02:07 TSH 3rd Generation 0.46 mIU/L (0.46-4.68) 08/15/18 02:07 - Hospital Course Hospital Course: PGY-[address] Laurie Ceron Initial HPI This patient is an 83yo F w/ a PMhx of IPF (Dr. Basilio following) is coming in for a few months of chest pain which she states is worse with activity, and improved with rest. She states that this pain is sometimes associated with nausea, but not all the time an that using a heating pad helps the chest pain get better as well as rest. She denies orthopnea and can sleep completely flat, denies any leg swelling. Does admit to exercise intolerance, and small household activities make her short of breath. She uses 3L of O2 16/03. She also admits to a productive cough, normally with yellow sputum that changed to white the past few days. She denies fevers/chills, CASTRO, increased shortness of breath,abdominal pain, N/V/D, dysuria/freq/urg or lower extremity pain/swelling. Hospital Course Patient was admitted with chest pain and associated nausea. EKG on admission was unremarkable. She does have a history of idiopathic pulmonary fibrosis, so initial working diagnosis was that symptoms were most likely attributable to her known chronic illness. However since patient has multiple risk factors for CAD, patient was scheduled to have cardiac cath at [facility]. Patient was maintained on her home singulair for IPF and started on IV salumedrol. ASA and Brilinta were put on for CAD risk reduction prior to cardiac cath. Consult management included Pulm, Dr. Basilio, and Cardio, Drs. Cruz/Tony. Patient did go for cardiac cath on 08/16 and cath revealed nonobstructive coronary disease (details below) and procedure was uneventful. Once the patient was cleared by all consultants for discharge she was discharged on home meds including ASA - Brilinta was stopped as patient does not require additional antiplatelet therapy, and steroids were tapered. Imaging Chest X-Ray 08/13: No active disease Cardiac Cath 08/16: Left dominant short and normal size. LAD is very torturous with non-obstructice disease. Circumflex is very tortuous with nonobstructive disease. RCA has ostial of about 50% lesion which becomes worse with the catheter engagement; however after the IV nitro it improved. It is most likely induced. A 6-English pigtail catheter was used to assess her left ventricular and diastolic pressure which is normal and normal LV systolic function. The patient with non-obstructive CAD, normal systolic function, normal left ventricular diastolic function. This is just a summary of events that occurred during this hospital course. For details, please refer to patient's full medical records. Chalino Rossi, PGY-1 Discharge Exam - Head Exam Head Exam: ATRAUMATIC, NORMAL INSPECTION Discharge Plan - Discharge Medications Prescriptions: Albuterol 0.083% [Albuterol 0.083% Inhal Jennifer (2.5 mg/3 ml) UD] 2.5 mg INH RQ6 #1 neb Arnuity Ellipta 62.5 mcg PO ONCE #1 Aspirin [Ecotrin] 81 mg PO DAILY #30 tabec hydroCHLOROthiazide [Hydrodiuril] 25 mg PO DAILY #30 tab Losartan [Cozaar] 100 mg PO DAILY #30 tab Montelukast [Singulair] 10 mg PO DAILY #30 tab PARoxetine [Paxil] 30 mg PO DAILY #30 tab Pirfenidone [Esbriet] 801 mg PO TID #90 capsule Ranitidine HCl 150 mg PO DAILY #30 tablet - Follow Up Plan Condition: GOOD Disposition: HOME/ ROUTINE Instructions: Heart Healthy Diet, Heart Attack (DC), Acute Kidney Injury (DC), Cellulitis (DC) Additional Instructions: Patient has been cleared for discharge per Dr. Gabo Ceron Please take the following medications as prescribed: Aspirin 81 mg 1 tab by mouth daily at 8am Atorvastatin 20 mg 1 tab by mouth before bedtime Singulair 10 mg 1 tab by mouth daily at 8am Esbriet 80 mg three times per day at 8am, 2pm, and 8pm Prednisone 10 mg tablet by mouth - 5 tablets at once for the first day, 4 tablets at once for the second day, 3 tablets at once for the third day, 2 tablets at once for the fourth, 1 tablet at once for the fifth and final day Hydrochlorothiazide 25 mg 1 tab by mouth daily at 8am Losartan 100 mg 1 tab by mouth daily at 8am Ranitidine 150 mg 1 tab by mouth daily at 8am Arnuity Ellipta one inhalation by mouth once Albuterol 2 inhalation by mouth every 6 hours ONLY NEEDED for SEVERE shortness of breath Make sure to schedule follow up with the following physicians in the next 7 days 1) Pulmonology - Dr. Basilio 2) Primary Care - Dr. Kevin Guajardo 3) Cardiology - Dr. Cruz Please return to ER if symptoms recur or worsen Referrals: Yassine Basilio MD [Staff Provider] - Alejandro Cruz MD [Staff Provider] - Kevin Guajardo MD [Staff Provider] -
--- NOTE | 2018-08-18 15:36 | CP.PCM.PN ---
Subjective - Date & Time of Evaluation Date of Evaluation: 08/18/18 Time of Evaluation: 14:20 - Subjective Subjective: 83 year old patient consulted for interstitial pulmonary fibrosis Patient evaluated at bedside, no acute distress. Denies fever, chest pain, SOB, cough Afebrile, breathing comfortably on NC Breathing well with good air entry Continue nebulizer treatment and antibiotics taper IV steroids Stable from pulmonology standpoint for discharge Objective - Vital Signs/Intake and Output Vital Signs (last 24 hours): Temp Pulse Resp BP Pulse Ox 97.9 F 74 18 154/71 H 95 08/18/18 07:00 08/18/18 08:26 08/18/18 07:00 08/18/18 11:53 08/18/18 12:00 - Medications Medications: Current Medications Albuterol Sulfate (Albuterol 0.083% Inhal Jennifer (2.5 Mg/3 Ml) Ud) 2.5 mg IH RQ3 [facility] Last Admin: 08/18/18 11:30 Dose: 2.5 mg Albuterol/Ipratropium (Duoneb 3 Mg/0.5 Mg (3 Ml) Ud) 3 ml INH RQ6 [facility] Last Admin: 08/18/18 13:05 Dose: 3 ml Aspirin (Ecotrin) 81 mg PO DAILY [facility] Last Admin: 08/18/18 09:34 Dose: Not Given Heparin Sodium (Porcine) (Heparin) 5,000 units SC BID [facility] Last Admin: 08/18/18 09:34 Dose: Not Given Home Med (Patient's Own Medication) 3 tab PO TID [facility] Last Admin: 08/18/18 13:20 Dose: 3 tab Hydrochlorothiazide (Hydrodiuril) 25 mg PO DAILY [facility] Last Admin: 08/18/18 09:34 Dose: Not Given Piperacillin Sod/Tazobactam Sod (Zosyn 3.375 Gm Iv Premix) 3.375 gm in 50 mls @ 100 mls/hr IVPB Q6H [facility]; Protocol Last Admin: 08/18/18 12:16 Dose: 100 mls/hr Losartan Potassium (Cozaar) 100 mg PO DAILY [facility] Last Admin: 08/18/18 09:33 Dose: Not Given Methylprednisolone (Solu-Medrol) 40 mg IVP Q6H [facility] Last Admin: 08/18/18 12:16 Dose: 40 mg Montelukast Sodium (Singulair) 10 mg PO HS [facility] Last Admin: 08/17/18 22:13 Dose: 10 mg Pantoprazole Sodium (Protonix Inj) 40 mg IVP DAILY [facility] Last Admin: 08/18/18 09:34 Dose: Not Given Paroxetine HCl (Paxil) 30 mg PO DAILY [facility] Last Admin: 08/18/18 09:34 Dose: Not Given Rosuvastatin Calcium (Crestor) 10 mg PO HS [facility] Last Admin: 08/17/18 22:13 Dose: 10 mg Zolpidem Tartrate (Ambien) 5 mg PO HS PRN PRN Reason: Insomnia Last Admin: 08/17/18 22:16 Dose: 5 mg - Labs Labs: 08/18/18 06:10 08/18/18 06:10 PT 12.7 SECONDS (9.7-12.2) H 08/16/18 06:23 INR 1.2 08/16/18 06:23 APTT 79 SECONDS (21-34) H D 08/16/18 06:23 Assessment and Plan (1) COPD (chronic obstructive pulmonary disease) with acute bronchitis Status: Acute (2) IPF (idiopathic pulmonary fibrosis) Status: Chronic
[2018-08-18 16:39] VITALS: BP 150/73; PULSE 101; RESP 20
[2018-08-19] MEDS ORDERED: Pantoprazole 40 mg EC Tab PO SCH (10:00)
== END 2018-08-18 19:16 | disposition home or self-care (01) ==
LOC: C.ER 19:38 → C.9E 23:17 → C.5S 08-14 00:57 → C.6T 08-14 01:05
PROVIDERS: ADMIT Family Medicine; ATTEND Family Medicine
DX: I21.4 Non-ST elevation (NSTEMI) myocardial infarction (principal); J84.112 Idiopathic pulmonary fibrosis; I10 Essential (primary) hypertension; I25.10 Atherosclerotic heart disease of native coronary artery without angina pectoris; J20.9 Acute bronchitis, unspecified; J44.0 Chronic obstructive pulmonary disease with (acute) lower respiratory infection; K21.9 Gastro-esophageal reflux disease without esophagitis; N28.9 Disorder of kidney and ureter, unspecified; Z79.899 Other long term (current) drug therapy; Z99.81 Dependence on supplemental oxygen
CPT/HCPCS: 36415; 71045; 80053; 80061; 82550; 82553; 82803; 82948; 83036; 83735; 83880; 84100; 84443; 84484; 85025; 85610; 85730; 93005; 93306; 94150; 94640; 96374; 97116; 97162; 97165; 97530; 99285; C9113; G0378; G8978; G8979; G8987; G8988; G8989; J1644; J1650; J2405; J2543; J2920; J2930

== ENCOUNTER 2018-09-18 23:50 | Inpatient (IN) | payer MEDICARE, MEDICAID ==
[2018-09-18 23:51] VITALS: BMI 31.2
[2018-09-19] MEDS ORDERED: Azithromycin 500mg/250ML NS 500 MG/250 ML BAG IV STA (01:45)
[2018-09-19] MEDS ORDERED: cefTRIAXone IV 1 gm in Dextros 50 ML IV STA (01:45)
[2018-09-19 02:08] LABS: BASO # 0.1 K/uL (0.0-0.2); BASO % 0.9 % (0.0-2.0); EOS # 0.2 K/uL (0.0-0.7); EOS % 2.4 % (0.0-4.0); HEMOGLOBIN 9.9 g/dL (11.0-16.0); LYMPH % 15.2 % (20.0-40.0); MEAN CELL VOLUME 91.4 fL (81.0-99.0); MEAN CORPUSCULAR HEMOGLOBIN 29.4 pg (27.0-31.0); MEAN CORPUSCULAR HGB CONC 32.1 g/dL (33.0-37.0); MEAN PLATELET VOLUME 7.4 fL (7.2-11.7); MONO # 0.7 K/uL (0.0-0.8); MONO % 10.8 % (0.0-10.0); NEUT # 4.7 K/uL (1.8-7.0); NEUT % 70.7 % (50.0-75.0); NRBC % 0.1 % (0.0-2.0); RBC 3.36 Mil/uL (3.80-5.20); RED CELL DISTRIBUTION WIDTH 16.2 % (11.5-14.5); WHITE BLOOD COUNT 6.6 K/uL (4.8-10.8)
[2018-09-19 02:20] LABS: ALB/GLOB RATIO 1.1 (1.0-2.1); ALBUMIN 3.7 g/dL (3.5-5.0); ALT/SGPT 11 U/L (9-52); AST/SGOT 27 U/L (14-36); BLOOD UREA NITROGEN 17 mg/dL (7-17); CALCIUM 8.9 mg/dl (8.6-10.4); GFR NON-AFRICAN AMERICAN 60
[2018-09-19] MEDS ORDERED: Azithromycin 500mg/250ML NS 500 MG/250 ML BAG IVPB ONE (02:22)
[2018-09-19 02:28] LABS: B-TYPE NATRIURETIC PEPTIDE 178 pg/mL (0-900)
--- NOTE | 2018-09-19 03:07 | C.PDOC ---
History Of Present Illness 83 year old female with Hx of pulmonary fibrosis admitted for small pneumonia in 07/2018 presents to the ER with cough productive of sputum and fever for the past few days. Patient has been using nebulizers at home, she takes multiple medications for pulmonary fibrosis and is on home oxygen. She has had courses of steroids in the past but is not steroid dependent. Chief Complaint (Nursing): Cough, Cold, Congestion History Per: Patient History/Exam Limitations: no limitations Onset/Duration Of Symptoms: Days Current Symptoms Are (Timing): Still Present Location Of Pain: None Sick Contacts (Context): None Associated Symptoms: Fever, Cough, Sputum Recent travel outside of the [place]: No Past Medical History Reviewed: Historical Data, Nursing Documentation, Vital Signs Vital Signs: Last Vital Signs Temp 98.7 F 09/19/18 00:15 Pulse 88 09/19/18 00:15 Resp 22 09/19/18 00:15 BP 168/75 H 09/19/18 00:15 Pulse Ox 96 09/19/18 00:15 - Medical History PMH: Anxiety, Arthritis, Bronchitis, COPD, Depression, Emphysema, HTN, Hypercholesterolemia, Osteoporosis, Peripheral Edema Denies: Chronic Kidney Disease Surgical History: - [facility] Procedures CENTRAL VENOUS CATHETER PLACEMENT WITH GUIDANCE (08/22/14) Family History: States: Diabetes - Social History Hx Tobacco Use: No Hx Alcohol Use: No Hx Substance Use: No - Immunization History Hx Tetanus Toxoid Vaccination: Yes Hx Influenza Vaccination: Yes (may 2018) Hx Pneumococcal Vaccination: No Review Of Systems Constitutional: Positive for: Fever Eyes: Negative for: Pain, Redness ENT: Positive for: Nose Discharge, Nose Congestion. Negative for: Mouth Swelling Cardiovascular: Negative for: Chest Pain, Palpitations Respiratory: Positive for: Cough, Sputum. Negative for: Shortness of Breath Gastrointestinal: Negative for: Nausea, Vomiting, Diarrhea Genitourinary: Negative for: Dysuria, Hematuria Musculoskeletal: Negative for: Back Pain Skin: Negative for: Rash Neurological: Negative for: Weakness, Numbness, Dizziness Physical Exam - Physical Exam Appears: Non-toxic, Other (Resting comfortably. No respiratory distress.) Skin: Normal Color, Warm Head: Atraumatic, Normacephalic Eye(s): bilateral: Normal Inspection, PERRL, EOMI Ear(s): Bilateral: Normal Nose: Discharge Oral Mucosa: Moist Tongue: No Swelling Lips: No Swelling Throat: Normal (No injection or swelling), No Exudate Neck: Normal ROM, Trachea Midline, Supple Chest: Symmetrical, No Tenderness Cardiovascular: Rhythm Regular Respiratory: Normal Breath Sounds, No Rhonchi, No Stridor, No Wheezing Gastrointestinal/Abdominal: Soft, No Tenderness Extremity: Normal ROM (x4), No Pedal Edema Neurological/Psych: Oriented x3, Normal Speech, Normal Cranial Nerves (Grossly intact) Gait: Steady ED Course And Treatment - Laboratory Results Result Diagrams: 09/19/18 02:05 09/19/18 02:05 Lab Results: NT-Pro-B Natriuret Pep 178 pg/mL (0-900) 09/19/18 02:05 Total Bilirubin 0.3 mg/dL (0.2-1.3) 09/19/18 02:05 AST 27 U/L (14-36) 09/19/18 02:05 ALT 11 U/L (9-52) 09/19/18 02:05 Alkaline Phosphatase 86 U/L (38-126) 09/19/18 02:05 Total Protein 7.0 g/dL (6.3-8.3) 09/19/18 02:05 Albumin 3.7 g/dL (3.5-5.0) 09/19/18 02:05 Globulin 3.3 gm/dL (2.2-3.9) 09/19/18 02:05 Albumin/Globulin Ratio 1.1 (1.0-2.1) 09/19/18 02:05 O2 Sat by Pulse Oximetry: 96 (Room air) Pulse Ox Interpretation: Normal Progress Note: Case discussed with Dr. Guajardo who requested the patient get a ct scan of the chest. he also recommended calling Dr. Mack of Pulmonology for admission. Dr. Mackcalled several times and got voicemail. Patient will be admitted to medicine on-call for observation. Disposition - Disposition Disposition: HOSPITALIZED Disposition Time: 05:00 Condition: STABLE - Clinical Impression Clinical Impression: Pneumonia - PA / FOUNDER AND CEO / Resident Statement MD/DO has reviewed & agrees with the documentation as recorded. - Scribe Statement The provider has reviewed the documentation as recorded by the Scribe Franck Noyola All medical record entries made by the Scribe were at my direction and personally dictated by me. I have reviewed the chart and agree that the record accurately reflects my personal performance of the history, physical exam, medical decision making, and the department course for this patient. I have also personally directed, reviewed, and agree with the discharge instructions and disposition.
[2018-09-19 03:28] LABS: ABG ALLEN TEST POS; ARTERIAL BLOOD GAS HCO3 27.3 mmol/L (21-28); ARTERIAL BLOOD GAS HEMOGLOBIN 9.3 g/dL (11.7-17.4); ARTERIAL BLOOD GAS O2 SAT 95.4 % (95-98); ARTERIAL BLOOD GAS PCO2 43 mm/Hg (35-45); ARTERIAL BLOOD GAS PH 7.42 (7.35-7.45); ARTERIAL BLOOD GAS PO2 73 mm/Hg (80-100); ARTERIAL BLOOD GAS TCO2 29.2 mmol/L (22-28)
[2018-09-19] MEDS ORDERED: FLUTICASONE FUROATE PO SCH ×2 (04:15→07:30)
[2018-09-19] MEDS ORDERED: Iodixanol 320 MG/ML 100 ML BOTTLE IV ONE (04:49)
[2018-09-19 06:10] LABS: SQUAMOUS EPITHIAL 30 /hpf (0-5); URINE BACTERIA MANY (<OCC); URINE BILIRUBIN NEGATIVE (NEGATIVE); URINE BLOOD NEGATIVE (NEGATIVE); URINE CLARITY Hazy (Clear); URINE COLOR Yellow (YELLOW); URINE GLUCOSE (UA) NORMAL (Normal); URINE LEUKOCYTE ESTERASE 2+ Leu/uL (Negative); URINE PROTEIN NEGATIVE (NEGATIVE); URINE UROBILINOGEN NORMAL mg/dL (0.2-1.0)
[2018-09-19] MEDS: Albuterol-Ipratrop 3 mg / 0.5 (3 ml) UD INH SCH ×3 (07:22→20:02)
[2018-09-19] MEDS ORDERED: Albuterol-Ipratrop 3 mg / 0.5 (3 ml) UD ONE ×2 (07:28→13:49)
--- NOTE | 2018-09-19 08:31 | RAD ---
Chest x-ray two views HISTORY: Pneumonia. COMPARISON: 08/13/2018 Findings: Confluent increased consolidative opacities seen within the mid to lower lung zones concerning for underlying infiltrate and or atelectasis. Clinical correlation. Suggestion of a small left pleural effusion. Nodular density in the right midlung zone may represent vessel on end. Cardiomegaly. Right paratracheal prominence may represent prominent vasculature. Biapical pleural thickening. Degenerative changes in the spine. Impression: Confluent increased consolidative opacities seen within the mid to lower lung zones concerning for underlying infiltrate and or atelectasis. Clinical correlation. Suggestion of a small left pleural effusion. Nodular density in the right midlung zone may represent vessel on end. Cardiomegaly. Right paratracheal prominence may represent prominent vasculature. Biapical pleural thickening.
[2018-09-19] MEDS ORDERED: PIRFENIDONE 801 MG PO SCH (10:00)
[2018-09-19] MEDS: Enoxaparin 30 mg Syringe SC SCH (11:56)
[2018-09-19] MEDS: MethylPREDNISolone 40 mg Vial IVP SCH ×2 (11:57→21:38)
--- NOTE | 2018-09-19 17:07 | CT ---
CT chest HISTORY: Pneumonia. Comparison: None available. Technique: Multiple contiguous axial images were performed through the chest without the use of intravenous contrast. Subsequently, sagittal coronal reformatted images were obtained. This CT exam was performed using one or more of the following dose reduction techniques: Automated exposure control, adjustment of the mA and/or kV according to patient size, and/or use of iterative reconstruction technique. Findings: Bilateral chronic changes of usual interstitial pneumonitis. Multifocal chronic peripheral subpleural interstitial pleural thickening. Associated architectural distortion and traction bronchiectasis. Findings are more prominent in the mid and lower lung zones. Some superimposed patchy ground-glass consolidative changes are noted in the right lung as well as the inferior left upper lobe, nonspecific. Clinical correlation. Normal enhancement of the bilateral peripheral pulmonary artery. No demonstrated pulmonary embolism. Atherosclerotic calcification and plaque in the aorta. No gross aortic dissection. Moderately enlarged heart and normal pericardium. No gross pleural or pericardial effusion. Prominent deformities of the right 4th and 5th ribs. Moderate sliding hiatal hernia. 7 millimeter left thyroid nodule. 1.4 centimeter prevascular lymph node. No significant hilar adenopathy. Splenule. Fatty atrophy of the pancreas. Impression: Bilateral chronic changes of usual interstitial pneumonitis. Multifocal chronic peripheral subpleural interstitial pleural thickening. Associated architectural distortion and traction bronchiectasis. Findings are more prominent in the mid and lower lung zones. Some superimposed patchy ground-glass consolidative changes are noted in the right lung as well as the inferior left upper lobe, nonspecific. Clinical correlation. No demonstrated pulmonary embolism or aortic arterial dissection. Sliding hiatal hernia. Additional findings as above. A preliminary report was generated at 5:36 a.m. on 09/19/[address] Sai Scrhoeder from [facility].
[2018-09-19] MEDS ORDERED: Patient's Own Medication - Tablet/Capusle PO SCH (18:00)
[2018-09-19] MEDS: ESBRIET 267 MG PO SCH (18:25)
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
[2018-09-20] MEDS: Albuterol-Ipratrop 3 mg / 0.5 (3 ml) UD INH SCH ×4 (01:54→19:10)
--- NOTE | 2018-09-20 04:46 | HP ---
CHIEF COMPLAINT: Cough, shortness of breath times few days. HISTORY OF PRESENT ILLNESS: This is an 83-year-old female with history of pulmonary fibrosis, hypertension, allergic rhinitis, insomnia, gastritis, and osteoporosis, who is compliant with her diet, medication, and followup. She was at [facility] where she was treated for exacerbation of pulmonary fibrosis. At that time also, she was considered to have possible pneumonia and she received treatment for pneumonia. The patient was advised to come back if she does not feel well. She did see her athletic gear custodian, Dr. Bunn, and today, she did not feel well. She got increasingly short of breath, dyspneic and she decided to come to emergency room and she was hospitalized. The patient has dyspnea at rest. She is coughing. She is wheezing. She has sore throat, runny nose, body aches, sneezing, itchy eyes, and itchy nose. She uses oxygen at home, and she has been using steroids at home including her inhalers, nebulizers with no response, and she came to emergency room. Her sputum is white, thick. She has chills. No fever. She denies any nausea or vomiting. She has sneezing. She denies any polyuria, polydipsia, or polyphagia. She denies any history of hematuria or pyuria. She denies any history of joint pain, hip pain, leg pain, or knee pain. She denies any history of tingling, numbness, or paresthesias of the legs. PAST MEDICAL HISTORY: Anxiety, insomnia, COPD, pulmonary fibrosis, depression, hypertension, osteoporosis, and CKD. SURGICAL HISTORY: . SOCIAL HISTORY: Nonsmoker, non-ETOH user. CURRENT MEDICATIONS: At home are: 1. Xyzal. 2. Cozaar. 3. Ecotrin. 4. Arnuity Ellipta. 5. Ventolin. 6. DuoNeb . 7. Zantac. 8. Esbriet. 9. Paxil. 10. Singulair. 11. Ambien. PHYSICAL EXAMINATION: GENERAL: An elderly female, in [id number] respiratory distress. VITAL SIGNS: Blood pressure 172/69, pulse 90, respiratory rate 20, and temperature 97.9. SKIN: Senile turgor. No bruises, no purpura, no petechiae. HEENT: Atraumatic and normocephalic. Negative pallor. Negative jaundice. Extraocular movements are intact. NECK: Supple. Flat neck vein. No JVD. Using accessory muscles. CHEST WALL: Bilateral symmetrical expansion. LUNGS: Bilateral inspiratory/expiratory rhonchi and diffuse crackles. Fine crackles all over the lung cob[place] with decreased air entry. ABDOMEN: Soft, nontender. Bowel sounds are positive. RECTAL: No masses, no bleed. EXTREMITIES: No clubbing, cyanosis, or edema. CENTRAL NERVOUS SYSTEM: Alert, awake, and oriented x3. Cranial nerves II through XII are normal. Power 5/5 x4. Plantars are downgoing. ASSESSMENT: 1. Rule out pneumonia in a patient with interstitial pulmonary fibrosis with bronchiectasis. Pneumonia is most likely complicated with multiple germs since there was a hospitalization less than a month ago. 2. Hypertension. 3. Urinary tract infection. 4. Allergic rhinitis. 5. Anxiety and depression. PLAN: Admit. Detailed orders are written. Seen and examined. Andres Concepcion MD
[2018-09-20 08:23] VITALS: RESP 20
[2018-09-20] MEDS: Enoxaparin 30 mg Syringe SC SCH (09:50)
[2018-09-20] MEDS: MethylPREDNISolone 40 mg Vial IVP SCH ×2 (09:50→21:50)
[2018-09-20] MEDS: ESBRIET 267 MG PO SCH ×3 (09:59→17:24)
[2018-09-20 14:04] LABS: BASO % 0.2 % (0.0-2.0); EOS % 0.1 % (0.0-4.0); HEMOGLOBIN 9.3 g/dL (11.0-16.0); LYMPH # 0.9 K/uL (1.0-4.3); LYMPH % 8.2 % (20.0-40.0); MEAN CELL VOLUME 91.2 fL (81.0-99.0); MEAN CORPUSCULAR HEMOGLOBIN 29.5 pg (27.0-31.0); MEAN CORPUSCULAR HGB CONC 32.4 g/dL (33.0-37.0); MEAN PLATELET VOLUME 7.6 fL (7.2-11.7); MONO # 0.4 K/uL (0.0-0.8); MONO % 3.9 % (0.0-10.0); NEUT % 87.6 % (50.0-75.0); PLATELET COUNT 315 K/uL (130-400); RBC 3.16 Mil/uL (3.80-5.20)
[2018-09-20 14:10] LABS: WHITE BLOOD COUNT 11.4 K/uL (4.8-10.8)
[2018-09-20 14:23] LABS: ALB/GLOB RATIO 1.1 (1.0-2.1); ALBUMIN 3.5 g/dL (3.5-5.0); CALCIUM 8.6 mg/dl (8.6-10.4)
[2018-09-20 14:25] LABS: BANDS 2 % (0-2); LYMPHOCYTE 7 % (20-40); MONOCYTE 3 % (0-10); NEUTROPHIL 88 % (50-75); PLATELET ESTIMATE NORMAL (NORMAL); TOTAL CELLS COUNTED 100
[2018-09-20 14:27] LABS: ANISOCYTOSIS SLIGHT
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
[2018-09-20] MEDS: Cefepime IV 1 gm in Dextrose 1 GM/50 ML BAG IVPB SCH (19:14)
--- NOTE | 2018-09-20 20:34 | CP.PCM.PN ---
Subjective - Date & Time of Evaluation Date of Evaluation: 09/20/18 Time of Evaluation: 07:00 - Subjective Subjective: dictated Objective - Vital Signs/Intake and Output Vital Signs (last 24 hours): Temp Pulse Resp BP Pulse Ox 97.7 F 61 20 145/68 93 L 09/20/18 16:34 09/20/18 16:34 09/20/18 16:34 09/20/18 17:24 09/20/18 16:34 Intake and Output: 09/20/18 09/21/18 18:59 06:59 Intake Total 400 Balance 400 - Medications Medications: Current Medications Albuterol/Ipratropium (Duoneb 3 Mg/0.5 Mg (3 Ml) Ud) 3 ml INH RQ6 [facility] Last Admin: 09/20/18 15:09 Dose: Not Given Aspirin (Ecotrin) 81 mg PO DAILY [facility] Last Admin: 09/20/18 13:23 Dose: 81 mg Enoxaparin Sodium (Lovenox) 30 mg SC DAILY [facility] Last Admin: 09/20/18 09:50 Dose: 30 mg Famotidine (Pepcid) 20 mg PO DAILY [facility] Last Admin: 09/20/18 09:53 Dose: 20 mg Home Med (Patient's Own Medication) 3 tab PO TID [facility] Last Admin: 09/20/18 17:24 Dose: 3 tab Cefepime HCl (Maxipime Iv 1 Gm Premix) 1 gm in 50 mls @ 100 mls/hr IVPB Q12H [facility]; Protocol Last Admin: 09/20/18 19:14 Dose: 100 mls/hr Losartan Potassium (Cozaar) 100 mg PO DAILY [facility] Last Admin: 09/20/18 09:52 Dose: 100 mg Methylprednisolone (Solu-Medrol) 40 mg IVP Q12 [facility] Last Admin: 09/20/18 09:50 Dose: 40 mg Metoprolol Tartrate (Lopressor) 25 mg PO BID [facility] Last Admin: 09/20/18 17:24 Dose: 25 mg Montelukast Sodium (Singulair) 10 mg PO DAILY [facility] Last Admin: 09/20/18 13:23 Dose: 10 mg Paroxetine HCl (Paxil) 30 mg PO DAILY [facility] Last Admin: 09/20/18 09:58 Dose: 30 mg Tiotropium [place] (Spiriva) 18 mcg INH RQ24 [facility] Zolpidem Tartrate (Ambien) 5 mg PO DAILY PRN PRN Reason: Insomnia Last Admin: 09/19/18 21:38 Dose: 5 mg - Labs Labs: 09/20/18 14:00 09/20/18 14:00
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
--- NOTE | 2018-09-21 01:40 | PN ---
DATE: 09/20/2018 SUBJECTIVE: The patient is feeling better. The patient is less short of breath, less cough, less wheezing. The patient is seen by Pulmonary; and the patient has thick sputum production, cough, wheezing, chest congestion, nasal congestion, and the patient is on multiple medications; and she denies any history of exposure to anybody with lung infections. The patient is feeling better than yesterday. PHYSICAL EXAMINATION: VITAL SIGNS: Blood pressure 144/68, pulse 61, respiratory rate 20, temperature 97.7. LUNGS: Bilaterally decreased air entry. Positive rales. Positive rhonchi. CARDIOVASCULAR: S1, S2, regular. ABDOMEN: Soft. ASSESSMENT: 1. Urinary tract infection. 2. Exacerbation of chronic obstructive pulmonary disease. 3. Tracheobronchitis, rule out pneumonia. 4. Hypertension. PLAN: Continue current medication. Monitor the patient. Andres Concepcion MD
[2018-09-21] MEDS: Albuterol-Ipratrop 3 mg / 0.5 (3 ml) UD INH SCH ×4 (02:37→19:43)
[2018-09-21] MEDS: Cefepime IV 1 gm in Dextrose 1 GM/50 ML BAG IVPB SCH ×2 (06:02→18:10)
[2018-09-21] MEDS: Tiotropium 18 mcg Cap For Inhalation INH SCH (07:45)
[2018-09-21 08:24] LABS: BASO % 0.1 % (0.0-2.0); HEMOGLOBIN 9.4 g/dL (11.0-16.0); LYMPH # 1.3 K/uL (1.0-4.3); MEAN CELL VOLUME 91.8 fL (81.0-99.0); MEAN CORPUSCULAR HEMOGLOBIN 29.9 pg (27.0-31.0); MEAN CORPUSCULAR HGB CONC 32.5 g/dL (33.0-37.0); MEAN PLATELET VOLUME 7.9 fL (7.2-11.7); MONO # 0.5 K/uL (0.0-0.8); MONO % 5.8 % (0.0-10.0); NEUT # 7.3 K/uL (1.8-7.0); NEUT % 80.1 % (50.0-75.0); NRBC % 0.1 % (0.0-2.0); RBC 3.16 Mil/uL (3.80-5.20); RED CELL DISTRIBUTION WIDTH 15.8 % (11.5-14.5); WHITE BLOOD COUNT 9.1 K/uL (4.8-10.8)
[2018-09-21 08:39] LABS: BLOOD UREA NITROGEN 25 mg/dL (7-17); CALCIUM 8.6 mg/dl (8.6-10.4); GFR NON-AFRICAN AMERICAN 53
[2018-09-21] MEDS: MethylPREDNISolone 40 mg Vial IVP SCH ×2 (10:03→21:35)
[2018-09-21] MEDS: Enoxaparin 30 mg Syringe SC SCH (10:03)
[2018-09-21] MEDS: ESBRIET 267 MG PO SCH ×3 (10:03→17:02)
--- NOTE | 2018-09-21 11:35 | CP.PCM.PN ---
Subjective - Date & Time of Evaluation Date of Evaluation: 09/21/18 Time of Evaluation: 11:35 - Subjective Subjective: alert, has sob, cough spells and wheezing. Objective - Vital Signs/Intake and Output Vital Signs (last 24 hours): Temp Pulse Resp BP Pulse Ox 97.4 F L 71 20 144/82 96 09/21/18 09:30 09/21/18 09:30 09/21/18 09:30 09/21/18 10:02 09/21/18 09:30 Intake and Output: 09/21/18 09/21/18 06:59 18:59 Intake Total 880 Balance 880 - Medications Medications: Current Medications Albuterol/Ipratropium (Duoneb 3 Mg/0.5 Mg (3 Ml) Ud) 3 ml INH RQ6 [facility] Last Admin: 09/21/18 07:45 Dose: Not Given Aspirin (Ecotrin) 81 mg PO DAILY [facility] Last Admin: 09/21/18 10:03 Dose: 81 mg Enoxaparin Sodium (Lovenox) 30 mg SC DAILY [facility] Last Admin: 09/21/18 10:03 Dose: 30 mg Famotidine (Pepcid) 20 mg PO DAILY [facility] Last Admin: 09/21/18 10:02 Dose: 20 mg Home Med (Patient's Own Medication) 3 tab PO TID [facility] Last Admin: 09/21/18 10:03 Dose: 3 tab Cefepime HCl (Maxipime Iv 1 Gm Premix) 1 gm in 50 mls @ 100 mls/hr IVPB Q12H [facility]; Protocol Last Admin: 09/21/18 06:02 Dose: 100 mls/hr Losartan Potassium (Cozaar) 100 mg PO DAILY [facility] Last Admin: 09/21/18 10:03 Dose: 100 mg Methylprednisolone (Solu-Medrol) 40 mg IVP Q12 [facility] Last Admin: 09/21/18 10:03 Dose: 40 mg Metoprolol Tartrate (Lopressor) 25 mg PO BID [facility] Last Admin: 09/21/18 10:02 Dose: 25 mg Montelukast Sodium (Singulair) 10 mg PO DAILY [facility] Last Admin: 09/21/18 10:02 Dose: 10 mg Paroxetine HCl (Paxil) 30 mg PO DAILY [facility] Last Admin: 09/21/18 10:03 Dose: 30 mg Tiotropium [place] (Spiriva) 18 mcg INH RQ24 [facility] Last Admin: 09/21/18 07:45 Dose: Not Given Zolpidem Tartrate (Ambien) 5 mg PO DAILY PRN PRN Reason: Insomnia Last Admin: 09/20/18 21:50 Dose: 5 mg - Labs Labs: 09/21/18 08:19 09/21/18 08:19 Assessment and Plan - Assessment and Plan (Free Text) Assessment: 83 year old female with pneumonia, seen and examined. Alert, awake, has sob with exertion and cough spells. Has wheezing bilateral with auscultation. Discussed with DR Concepcion, changed status to regular admission, continue with nebulizer, solumedrol and iv antibiotics.
--- NOTE | 2018-09-21 12:33 | CP.PCM.PN ---
<Nalini Keane - Last Filed: 09/21/18 18:00> Subjective - Date & Time of Evaluation Date of Evaluation: 09/21/18 Time of Evaluation: 08:00 - Subjective Subjective: Cardiology Progress Note for Dr. Cruz: Patient was seen and examined at bedside in the AM. Patient states she continues to feel short of breath. She states she feels like she can hear her lung sounds rattling when she is trying to fall asleep. Patient denies headaches, chest pain, palpitations, nausea, vomiting, constipation. Objective - Vital Signs/Intake and Output Vital Signs (last 24 hours): Temp Pulse Resp BP Pulse Ox 97.4 F L 71 20 144/82 96 09/21/18 09:30 09/21/18 09:30 09/21/18 09:30 09/21/18 10:02 09/21/18 09:30 Intake and Output: 09/21/18 09/21/18 06:59 18:59 Intake Total 880 Balance 880 - Medications Medications: Current Medications Albuterol/Ipratropium (Duoneb 3 Mg/0.5 Mg (3 Ml) Ud) 3 ml INH RQ6 [facility] Last Admin: 09/21/18 07:45 Dose: Not Given Aspirin (Ecotrin) 81 mg PO DAILY [facility] Last Admin: 09/21/18 10:03 Dose: 81 mg Enoxaparin Sodium (Lovenox) 30 mg SC DAILY [facility] Last Admin: 09/21/18 10:03 Dose: 30 mg Famotidine (Pepcid) 20 mg PO DAILY [facility] Last Admin: 09/21/18 10:02 Dose: 20 mg Home Med (Patient's Own Medication) 3 tab PO TID [facility] Last Admin: 09/21/18 10:03 Dose: 3 tab Cefepime HCl (Maxipime Iv 1 Gm Premix) 1 gm in 50 mls @ 100 mls/hr IVPB Q12H [facility]; Protocol Last Admin: 09/21/18 06:02 Dose: 100 mls/hr Losartan Potassium (Cozaar) 100 mg PO DAILY [facility] Last Admin: 09/21/18 10:03 Dose: 100 mg Methylprednisolone (Solu-Medrol) 40 mg IVP Q12 [facility] Last Admin: 09/21/18 10:03 Dose: 40 mg Metoprolol Tartrate (Lopressor) 25 mg PO BID [facility] Last Admin: 09/21/18 10:02 Dose: 25 mg Montelukast Sodium (Singulair) 10 mg PO DAILY [facility] Last Admin: 09/21/18 10:02 Dose: 10 mg Paroxetine HCl (Paxil) 30 mg PO DAILY [facility] Last Admin: 09/21/18 10:03 Dose: 30 mg Tiotropium [place] (Spiriva) 18 mcg INH RQ24 [facility] Last Admin: 09/21/18 07:45 Dose: Not Given Zolpidem Tartrate (Ambien) 5 mg PO DAILY PRN PRN Reason: Insomnia Last Admin: 09/20/18 21:50 Dose: 5 mg - Labs Labs: 09/21/18 08:19 09/21/18 08:19 - Constitutional Appears: No Acute Distress, Chronically Ill - Head Exam Head Exam: ATRAUMATIC, NORMAL INSPECTION - Eye Exam Eye Exam: EOMI, Normal appearance - ENT Exam ENT Exam: Mucous Membranes Moist - Respiratory Exam Respiratory Exam: Rales (bilateral lower lungs), NORMAL BREATHING PATTERN - Cardiovascular Exam Cardiovascular Exam: REGULAR RHYTHM, +S1, +S2 - GI/Abdominal Exam GI & Abdominal Exam: Soft, Normal Bowel Sounds. absent: Tenderness - Extremities Exam Additional comments: eft LE larger compared to Right LE secondary to multiple leg surgeries on the right leg of tissue removal - Neurological Exam Neurological Exam: Alert, Awake, Oriented x3 - Psychiatric Exam Psychiatric exam: Normal Affect - Skin Skin Exam: Normal Color Assessment and Plan - Assessment and Plan (Free Text) Assessment: 83 year old with PMHx of Osteoporosis, HTN, COPD (Emphysema), Pulmonary Fibrosis who is currently admitted for dyspnea. Cardiology consulted for dyspnea. Shortness of Breath - Most likely secondary to COPD Exacerbation/Pneumonia - proBNP 178 - ECHO (08/14/18): Diastolic dysfunction; EF 65-70% - Cardiac Cath (08/16/18): Non-obstructive coronaries - Pulmonology consult: Dr. Basilio --> help appreciated - Medications: * Ceftriaxone 100mls@100mls/hr IVP Q24H2 * Duoneb * Methylprednisone 40mg IVP Q12 * Montelukast 10mg daily * Spiriva 18mcg ING RQ24 Pulmonary Fibrosis - Idopathic - Continue anti-fibrotic agent: Pirfenidone 801mg PO TID HTN - Continue Medications: * Losartan 100mg PO daily * Metoprolol 25mg PO BID No further cardiac work up recommended at this time. Case discussed with Dr. Anthony Keane PGY-2 <Alejandro Cruz - Last Filed: 09/22/18 23:19> Objective - Vital Signs/Intake and Output Vital Signs (last 24 hours): Temp Pulse Resp BP Pulse Ox 97.6 F 58 L 20 138/69 95 09/22/18 16:00 09/22/18 16:00 09/22/18 16:00 09/22/18 17:45 09/22/18 16:00 Intake and Output: 09/22/18 09/23/18 18:59 06:59 Intake Total 450 Output Total 600 Balance -150 - Medications Medications: Current Medications Albuterol/Ipratropium (Duoneb 3 Mg/0.5 Mg (3 Ml) Ud) 3 ml INH RQ6 [facility] Last Admin: 09/22/18 20:05 Dose: 3 ml Aspirin (Ecotrin) 81 mg PO DAILY [facility] Last Admin: 09/22/18 09:42 Dose: 81 mg Enoxaparin Sodium (Lovenox) 30 mg SC DAILY [facility] Last Admin: 09/22/18 09:42 Dose: 30 mg Famotidine (Pepcid) 20 mg PO DAILY [facility] Last Admin: 09/22/18 09:42 Dose: 20 mg Home Med (Patient's Own Medication) 3 tab PO TID [facility] Last Admin: 09/22/18 18:38 Dose: Not Given Cefepime HCl (Maxipime Iv 1 Gm Premix) 1 gm in 50 mls @ 100 mls/hr IVPB Q12H [facility]; Protocol Last Admin: 09/22/18 17:44 Dose: 100 mls/hr Fluconazole (Diflucan Iv 100 Mg/50 Ml Ns) 50 mls @ 100 mls/hr IVPB Q24H [facility]; Protocol Last Admin: 09/22/18 18:35 Dose: 100 mls/hr Losartan Potassium (Cozaar) 100 mg PO DAILY [facility] Last Admin: 09/22/18 09:42 Dose: 100 mg Methylprednisolone (Solu-Medrol) 40 mg IVP Q12 [facility] Last Admin: 09/22/18 22:03 Dose: 40 mg Metoprolol Tartrate (Lopressor) 25 mg PO BID [facility] Last Admin: 09/22/18 17:45 Dose: 25 mg Montelukast Sodium (Singulair) 10 mg PO DAILY [facility] Last Admin: 09/22/18 09:42 Dose: 10 mg Paroxetine HCl (Paxil) 30 mg PO DAILY [facility] Last Admin: 09/22/18 09:43 Dose: 30 mg Promethazine HCl (Phenergan Syrup) 6.25 mg PO Q6 PRN PRN Reason: Cough Last Admin: 09/22/18 22:09 Dose: 6.25 mg Tiotropium [place] (Spiriva) 18 mcg INH RQ24 [facility] Last Admin: 09/22/18 07:55 Dose: Not Given Zolpidem Tartrate (Ambien) 5 mg PO DAILY PRN PRN Reason: Insomnia Last Admin: 09/22/18 22:09 Dose: 5 mg - Labs Labs: 09/21/18 08:19 09/21/18 08:19 Assessment and Plan - Assessment and Plan (Free Text) Assessment: Patient seen and evaluated personally by me. Plan of care d/w the resident and as documented
--- NOTE | 2018-09-21 16:22 | CP.PCM.PN ---
Subjective - Date & Time of Evaluation Date of Evaluation: 09/21/18 Time of Evaluation: 11:20 - Subjective Subjective: Ms. Toledo was seen and examined at bedside this morning. She is resting comfortably in bed. No acute events noted overnight. Patient states that the cough is still present, and gave her some difficulty remaining asleep last night. This morning, she expectorated quite a lot of sputum. Her breathing is otherwise unlabored. She denies any subjective fever/chills, dyspnea, nausea, vomiting, myalgia, diarrhea, or abdominal pain. No other complaints are noted. Exam: Gen: No acute distress. AAOx3 HEENT: Moist mucosa. (+) Tender sinuses, boggy turbinates Card: RRRR. Lungs: No tachpnea or respiratory distress. Symmetric chest excursions. (+) Coarse crackles noted in the bilateral bases, (+) rhonchi, (+) wheezing in all lung [place] Abd: Soft, non-distended. Normal bowel sounds. No tenderness to palpation. A&P 1. Pneumonia - Cultures negative x 2 days; mycoplasma and legionella also negative - Procalcitonin low at <0.05 - CXR (09/19): Increased consolidative opacities in mid and lower lung [place] - CT Chest (09/19): Bilateral chronic changes consistent with interstital pneumonitis, multifocal chronic subpleural interstitial thickening most prominent in mid and lower lung zones, some super imposed patchy ground glass consolidations in the right lower lobe and left apex - Continue IV antibiotics 2. COPD exacerbation - Continue duonebs, singulair and IV solu-medrol 3. Pulmonary fibrosis, idiopathic - Continue anti-fibrotic agent Pirfenidone 801mg PO TID Objective - Vital Signs/Intake and Output Vital Signs (last 24 hours): Temp Pulse Resp BP Pulse Ox 98.0 F 62 20 130/61 96 09/21/18 15:00 09/21/18 15:00 09/21/18 15:00 09/21/18 15:00 09/21/18 15:00 Intake and Output: 09/21/18 09/21/18 06:59 18:59 Intake Total 880 450 Balance 880 450 - Medications Medications: Current Medications Albuterol/Ipratropium (Duoneb 3 Mg/0.5 Mg (3 Ml) Ud) 3 ml INH RQ6 [facility] Last Admin: 09/21/18 13:15 Dose: 3 ml Aspirin (Ecotrin) 81 mg PO DAILY [facility] Last Admin: 09/21/18 10:03 Dose: 81 mg Enoxaparin Sodium (Lovenox) 30 mg SC DAILY [facility] Last Admin: 09/21/18 10:03 Dose: 30 mg Famotidine (Pepcid) 20 mg PO DAILY [facility] Last Admin: 09/21/18 10:02 Dose: 20 mg Home Med (Patient's Own Medication) 3 tab PO TID [facility] Last Admin: 09/21/18 14:02 Dose: 3 tab Cefepime HCl (Maxipime Iv 1 Gm Premix) 1 gm in 50 mls @ 100 mls/hr IVPB Q12H [facility]; Protocol Last Admin: 09/21/18 06:02 Dose: 100 mls/hr Losartan Potassium (Cozaar) 100 mg PO DAILY [facility] Last Admin: 09/21/18 10:03 Dose: 100 mg Methylprednisolone (Solu-Medrol) 40 mg IVP Q12 [facility] Last Admin: 09/21/18 10:03 Dose: 40 mg Metoprolol Tartrate (Lopressor) 25 mg PO BID [facility] Last Admin: 09/21/18 10:02 Dose: 25 mg Montelukast Sodium (Singulair) 10 mg PO DAILY [facility] Last Admin: 09/21/18 10:02 Dose: 10 mg Paroxetine HCl (Paxil) 30 mg PO DAILY [facility] Last Admin: 09/21/18 10:03 Dose: 30 mg Tiotropium [place] (Spiriva) 18 mcg INH RQ24 [facility] Last Admin: 09/21/18 07:45 Dose: Not Given Zolpidem Tartrate (Ambien) 5 mg PO DAILY PRN PRN Reason: Insomnia Last Admin: 09/20/18 21:50 Dose: 5 mg - Labs Labs: 09/21/18 08:19 09/21/18 08:19
[2018-09-21] MEDS: Promethazine 6.25 MG/5 ML CUP PO PRN (17:02)
--- NOTE | 2018-09-21 21:25 | CP.PCM.PN ---
Subjective - Date & Time of Evaluation Date of Evaluation: 09/21/18 Time of Evaluation: 17:59 - Subjective Subjective: dictated Objective - Vital Signs/Intake and Output Vital Signs (last 24 hours): Temp Pulse Resp BP Pulse Ox 98.0 F 62 20 130/61 96 09/21/18 15:00 09/21/18 15:00 09/21/18 15:00 09/21/18 17:02 09/21/18 15:00 Intake and Output: 09/21/18 09/22/18 18:59 06:59 Intake Total 450 Balance 450 - Medications Medications: Current Medications Albuterol/Ipratropium (Duoneb 3 Mg/0.5 Mg (3 Ml) Ud) 3 ml INH RQ6 [facility] Last Admin: 09/21/18 19:43 Dose: 3 ml Aspirin (Ecotrin) 81 mg PO DAILY [facility] Last Admin: 09/21/18 10:03 Dose: 81 mg Enoxaparin Sodium (Lovenox) 30 mg SC DAILY [facility] Last Admin: 09/21/18 10:03 Dose: 30 mg Famotidine (Pepcid) 20 mg PO DAILY [facility] Last Admin: 09/21/18 10:02 Dose: 20 mg Home Med (Patient's Own Medication) 3 tab PO TID [facility] Last Admin: 09/21/18 17:02 Dose: 3 tab Cefepime HCl (Maxipime Iv 1 Gm Premix) 1 gm in 50 mls @ 100 mls/hr IVPB Q12H [facility]; Protocol Last Admin: 09/21/18 18:10 Dose: 100 mls/hr Losartan Potassium (Cozaar) 100 mg PO DAILY [facility] Last Admin: 09/21/18 10:03 Dose: 100 mg Methylprednisolone (Solu-Medrol) 40 mg IVP Q12 [facility] Last Admin: 09/21/18 10:03 Dose: 40 mg Metoprolol Tartrate (Lopressor) 25 mg PO BID [facility] Last Admin: 09/21/18 17:02 Dose: 25 mg Montelukast Sodium (Singulair) 10 mg PO DAILY [facility] Last Admin: 09/21/18 10:02 Dose: 10 mg Paroxetine HCl (Paxil) 30 mg PO DAILY [facility] Last Admin: 09/21/18 10:03 Dose: 30 mg Promethazine HCl (Phenergan Syrup) 6.25 mg PO Q6 PRN PRN Reason: Cough Last Admin: 09/21/18 17:02 Dose: 6.25 mg Tiotropium [place] (Spiriva) 18 mcg INH RQ24 [facility] Last Admin: 09/21/18 07:45 Dose: Not Given Zolpidem Tartrate (Ambien) 5 mg PO DAILY PRN PRN Reason: Insomnia Last Admin: 09/20/18 21:50 Dose: 5 mg - Labs Labs: 09/21/18 08:19 09/21/18 08:19
[2018-09-22] MEDS: Albuterol-Ipratrop 3 mg / 0.5 (3 ml) UD INH SCH ×4 (01:40→20:05)
--- NOTE | 2018-09-22 03:20 | PN ---
DATE: 09/21/2018 SUBJECTIVE: The patient is still having coughing, wheezing and shortness of breath. She denies any fever. No nausea or vomiting. No diarrhea. No fever. PHYSICAL EXAMINATION: VITAL SIGNS: Blood pressure is 130/61, pulse 62, respiratory rate 20, temperature 98. LUNGS: Bilateral diffuse crackles. Decreased air entry. CARDIOVASCULAR SYSTEM: S1 and S2, regular. ABDOMEN: Soft, nontender. Bowel sounds are positive. ASSESSMENT: 1. Interstitial pulmonary fibrosis. 2. Pneumonia. 3. Urinary tract infection. 4. Hypertension. PLAN: Continue antibiotics. Monitor the patient. Andres Concepcion MD
[2018-09-22] MEDS: Cefepime IV 1 gm in Dextrose 1 GM/50 ML BAG IVPB SCH ×2 (05:39→17:44)
[2018-09-22] MEDS: Tiotropium 18 mcg Cap For Inhalation INH SCH (07:55)
[2018-09-22] MEDS: ESBRIET 267 MG PO SCH ×3 (09:41→18:38)
[2018-09-22] MEDS: Enoxaparin 30 mg Syringe SC SCH (09:42)
[2018-09-22] MEDS: MethylPREDNISolone 40 mg Vial IVP SCH ×2 (09:44→22:03)
[2018-09-22] MEDS: Promethazine 6.25 MG/5 ML CUP PO PRN ×2 (09:44→22:09)
--- NOTE | 2018-09-22 14:59 | CP.PCM.PN ---
Subjective - Date & Time of Evaluation Date of Evaluation: 09/22/18 Time of Evaluation: 10:25 - Subjective Subjective: Ms. Toledo was seen and examined at bedside this morning. Resting comfortably in bed. No acute events noted overnight. Patient states that her breathing has improved since yesterday and that her cough is now less frequent and less produc tive. However, since last night, the little sputum that she is expectorating has changed color. It was visualized at bedside to be brown/rust color. She denies any subjective fever/chills, dyspnea, nausea, vomiting, myalgia, diarrhea, or abdominal pain. No other complaints are noted. Exam: Gen: No acute distress. AAOx3 HEENT: Moist mucosa. (+) Tender sinuses, boggy turbinates Card: RRRR. Lungs: No tachpnea or respiratory distress. Symmetric chest excursions. (+) Coarse crackles noted in the bilateral bases, (+) Rhonchi present Abd: Soft, non-distended. Normal bowel sounds. No tenderness to palpation. A&P 1. Pneumonia - Cultures positive for yeast species (09/21); Recommend starting IV fluconazole - Mycoplasma and legionella also negative - Continue IV antibiotics 2. COPD exacerbation - Continue duonebs, singulair and IV solu-medrol 3. Pulmonary fibrosis, idiopathic - Continue anti-fibrotic agent Pirfenidone 801mg PO TID Objective - Vital Signs/Intake and Output Vital Signs (last 24 hours): Temp Pulse Resp BP Pulse Ox 97.3 F L 72 20 165/61 H 95 09/22/18 08:15 09/22/18 08:15 09/22/18 08:15 09/22/18 09:41 09/22/18 08:15 Intake and Output: 09/22/18 09/22/18 06:59 18:59 Intake Total 730 Balance 730 - Medications Medications: Current Medications Albuterol/Ipratropium (Duoneb 3 Mg/0.5 Mg (3 Ml) Ud) 3 ml INH RQ6 [facility] Last Admin: 09/22/18 13:35 Dose: 3 ml Aspirin (Ecotrin) 81 mg PO DAILY [facility] Last Admin: 09/22/18 09:42 Dose: 81 mg Enoxaparin Sodium (Lovenox) 30 mg SC DAILY [facility] Last Admin: 01/30/19 09:42 Dose: 30 mg Famotidine (Pepcid) 20 mg PO DAILY [facility] Last Admin: 09/22/18 09:42 Dose: 20 mg Fluconazole (Diflucan) 100 mg PO DAILY [facility]; Protocol Last Admin: 09/22/18 09:55 Dose: 100 mg Home Med (Patient's Own Medication) 3 tab PO TID [facility] Last Admin: 09/22/18 14:27 Dose: 3 tab Cefepime HCl (Maxipime Iv 1 Gm Premix) 1 gm in 50 mls @ 100 mls/hr IVPB Q12H [facility]; Protocol Last Admin: 09/22/18 05:39 Dose: 100 mls/hr Losartan Potassium (Cozaar) 100 mg PO DAILY [facility] Last Admin: 09/22/18 09:42 Dose: 100 mg Methylprednisolone (Solu-Medrol) 40 mg IVP Q12 [facility] Last Admin: 09/22/18 09:44 Dose: 40 mg Metoprolol Tartrate (Lopressor) 25 mg PO BID [facility] Last Admin: 09/22/18 09:41 Dose: 25 mg Montelukast Sodium (Singulair) 10 mg PO DAILY [facility] Last Admin: 09/22/18 09:42 Dose: 10 mg Paroxetine HCl (Paxil) 30 mg PO DAILY [facility] Last Admin: 09/22/18 09:43 Dose: 30 mg Promethazine HCl (Phenergan Syrup) 6.25 mg PO Q6 PRN PRN Reason: Cough Last Admin: 09/22/18 09:44 Dose: 6.25 mg Tiotropium [place] (Spiriva) 18 mcg INH RQ24 [facility] Last Admin: 09/22/18 07:55 Dose: Not Given Zolpidem Tartrate (Ambien) 5 mg PO DAILY PRN PRN Reason: Insomnia Last Admin: 09/21/18 21:36 Dose: 5 mg - Labs Labs: 09/21/18 08:19 09/21/18 08:19
--- NOTE | 2018-09-22 18:14 | CP.PCM.PN ---
<Nalini Keane - Last Filed: 09/22/18 18:13> Subjective - Date & Time of Evaluation Date of Evaluation: 09/22/18 Time of Evaluation: 08:00 - Subjective Subjective: Cardiology Progress Note for Dr. Cruz: Patient was seen and examined at bedside in the AM. Patient states she is feeling much better today. Patient denies headaches, chest pain, palpitations, nausea, vomiting, constipation. Objective - Vital Signs/Intake and Output Vital Signs (last 24 hours): Temp Pulse Resp BP Pulse Ox 97.6 F 58 L 20 138/69 95 09/22/18 16:00 09/22/18 16:00 09/22/18 16:00 09/22/18 17:45 09/22/18 16:00 Intake and Output: 09/22/18 09/22/18 06:59 18:59 Intake Total 730 Balance 730 - Medications Medications: Current Medications Albuterol/Ipratropium (Duoneb 3 Mg/0.5 Mg (3 Ml) Ud) 3 ml INH RQ6 [facility] Last Admin: 09/22/18 13:35 Dose: 3 ml Aspirin (Ecotrin) 81 mg PO DAILY [facility] Last Admin: 09/22/18 09:42 Dose: 81 mg Enoxaparin Sodium (Lovenox) 30 mg SC DAILY [facility] Last Admin: 09/22/18 09:42 Dose: 30 mg Famotidine (Pepcid) 20 mg PO DAILY [facility] Last Admin: 09/22/18 09:42 Dose: 20 mg Home Med (Patient's Own Medication) 3 tab PO TID [facility] Last Admin: 09/22/18 14:27 Dose: 3 tab Cefepime HCl (Maxipime Iv 1 Gm Premix) 1 gm in 50 mls @ 100 mls/hr IVPB Q12H [facility]; Protocol Last Admin: 09/22/18 17:44 Dose: 100 mls/hr Fluconazole (Diflucan Iv 100 Mg/50 Ml Ns) 50 mls @ 100 mls/hr IVPB Q24H [facility]; Protocol Losartan Potassium (Cozaar) 100 mg PO DAILY [facility] Last Admin: 09/22/18 09:42 Dose: 100 mg Methylprednisolone (Solu-Medrol) 40 mg IVP Q12 [facility] Last Admin: 09/22/18 09:44 Dose: 40 mg Metoprolol Tartrate (Lopressor) 25 mg PO BID [facility] Last Admin: 09/22/18 17:45 Dose: 25 mg Montelukast Sodium (Singulair) 10 mg PO DAILY [facility] Last Admin: 09/22/18 09:42 Dose: 10 mg Paroxetine HCl (Paxil) 30 mg PO DAILY [facility] Last Admin: 09/22/18 09:43 Dose: 30 mg Promethazine HCl (Phenergan Syrup) 6.25 mg PO Q6 PRN PRN Reason: Cough Last Admin: 09/22/18 09:44 Dose: 6.25 mg Tiotropium [place] (Spiriva) 18 mcg INH RQ24 [facility] Last Admin: 09/22/18 07:55 Dose: Not Given Zolpidem Tartrate (Ambien) 5 mg PO DAILY PRN PRN Reason: Insomnia Last Admin: 09/21/18 21:36 Dose: 5 mg - Labs Labs: 09/21/18 08:19 09/21/18 08:19 - Constitutional Appears: No Acute Distress, Chronically Ill - Head Exam Head Exam: ATRAUMATIC, NORMAL INSPECTION - Eye Exam Eye Exam: EOMI, Normal appearance - ENT Exam ENT Exam: Mucous Membranes Moist - Respiratory Exam Respiratory Exam: NORMAL BREATHING PATTERN - Cardiovascular Exam Cardiovascular Exam: REGULAR RHYTHM, +S1, +S2 - Extremities Exam Additional comments: left LE larger compared to Right LE secondary to multiple leg surgeries on the right leg of tissue removal - Neurological Exam Neurological Exam: Alert, Awake, Oriented x3 - Psychiatric Exam Psychiatric exam: Normal Affect - Skin Skin Exam: Normal Color Assessment and Plan - Assessment and Plan (Free Text) Assessment: 83 year old with PMHx of Osteoporosis, HTN, COPD (Emphysema), Pulmonary Fibro sis who is currently admitted for dyspnea. Cardiology consulted for dyspnea. Shortness of Breath - Most likely secondary to COPD Exacerbation/Pneumonia - proBNP 178 - ECHO (08/14/18): Diastolic dysfunction; EF 65-70% - Cardiac Cath (08/16/18): Non-obstructive coronaries - Pulmonology consult: Dr. Basilio --> help appreciated - Medications: * Ceftriaxone 100mls@100mls/hr IVP Q24H2 * Duoneb * Methylprednisone 40mg IVP Q12 * Montelukast 10mg daily * Spiriva 18mcg ING RQ24 Pulmonary Fibrosis - Idopathic - Continue anti-fibrotic agent: Pirfenidone 801mg PO TID HTN - Continue Medications: * Losartan 100mg PO daily * Metoprolol 25mg PO BID No further cardiac work up recommended at this time. Thank you for this interesting consult. Please re-consult if needed. Thank you Case discussed with Dr. Anthony Keane PGY-2 <Alejandro Cruz - Last Filed: 09/22/18 23:19> Objective - Vital Signs/Intake and Output Vital Signs (last 24 hours): Temp Pulse Resp BP Pulse Ox 97.6 F 58 L 20 138/69 95 09/22/18 16:00 09/22/18 16:00 09/22/18 16:00 09/22/18 17:45 09/22/18 16:00 Intake and Output: 09/22/18 09/23/18 18:59 06:59 Intake Total 450 Output Total 600 Balance -150 - Medications Medications: Current Medications Albuterol/Ipratropium (Duoneb 3 Mg/0.5 Mg (3 Ml) Ud) 3 ml INH RQ6 [facility] Last Admin: 09/22/18 20:05 Dose: 3 ml Aspirin (Ecotrin) 81 mg PO DAILY [facility] Last Admin: 09/22/18 09:42 Dose: 81 mg Enoxaparin Sodium (Lovenox) 30 mg SC DAILY [facility] Last Admin: 09/22/18 09:42 Dose: 30 mg Famotidine (Pepcid) 20 mg PO DAILY [facility] Last Admin: 09/22/18 09:42 Dose: 20 mg Home Med (Patient's Own Medication) 3 tab PO TID [facility] Last Admin: 09/22/18 18:38 Dose: Not Given Cefepime HCl (Maxipime Iv 1 Gm Premix) 1 gm in 50 mls @ 100 mls/hr IVPB Q12H [facility]; Protocol Last Admin: 09/22/18 17:44 Dose: 100 mls/hr Fluconazole (Diflucan Iv 100 Mg/50 Ml Ns) 50 mls @ 100 mls/hr IVPB Q24H [facility]; Protocol Last Admin: 09/22/18 18:35 Dose: 100 mls/hr Losartan Potassium (Cozaar) 100 mg PO DAILY [facility] Last Admin: 09/22/18 09:42 Dose: 100 mg Methylprednisolone (Solu-Medrol) 40 mg IVP Q12 [facility] Last Admin: 09/22/18 22:03 Dose: 40 mg Metoprolol Tartrate (Lopressor) 25 mg PO BID [facility] Last Admin: 09/22/18 17:45 Dose: 25 mg Montelukast Sodium (Singulair) 10 mg PO DAILY [facility] Last Admin: 09/22/18 09:42 Dose: 10 mg Paroxetine HCl (Paxil) 30 mg PO DAILY [facility] Last Admin: 09/22/18 09:43 Dose: 30 mg Promethazine HCl (Phenergan Syrup) 6.25 mg PO Q6 PRN PRN Reason: Cough Last Admin: 09/22/18 22:09 Dose: 6.25 mg Tiotropium [place] (Spiriva) 18 mcg INH RQ24 [facility] Last Admin: 09/22/18 07:55 Dose: Not Given Zolpidem Tartrate (Ambien) 5 mg PO DAILY PRN PRN Reason: Insomnia Last Admin: 09/22/18 22:09 Dose: 5 mg - Labs Labs: 09/21/18 08:19 09/21/18 08:19 Assessment and Plan - Assessment and Plan (Free Text) Assessment: Patient seen and evaluated personally by me. Plan of care d/w the resident and as documented
[2018-09-22] MEDS: Fluconazole IV 100mg/50 ml NS 50 ML IVPB SCH (18:35)
--- NOTE | 2018-09-22 21:44 | CP.PCM.PN ---
Subjective - Date & Time of Evaluation Date of Evaluation: 09/22/18 Time of Evaluation: 07:20 - Subjective Subjective: dictated Objective - Vital Signs/Intake and Output Vital Signs (last 24 hours): Temp Pulse Resp BP Pulse Ox 97.6 F 58 L 20 138/69 95 09/22/18 16:00 09/22/18 16:00 09/22/18 16:00 09/22/18 17:45 09/22/18 16:00 - Medications Medications: Current Medications Albuterol/Ipratropium (Duoneb 3 Mg/0.5 Mg (3 Ml) Ud) 3 ml INH RQ6 [facility] Last Admin: 09/22/18 20:05 Dose: 3 ml Aspirin (Ecotrin) 81 mg PO DAILY [facility] Last Admin: 09/22/18 09:42 Dose: 81 mg Enoxaparin Sodium (Lovenox) 30 mg SC DAILY [facility] Last Admin: 09/22/18 09:42 Dose: 30 mg Famotidine (Pepcid) 20 mg PO DAILY [facility] Last Admin: 09/22/18 09:42 Dose: 20 mg Home Med (Patient's Own Medication) 3 tab PO TID [facility] Last Admin: 09/22/18 18:38 Dose: Not Given Cefepime HCl (Maxipime Iv 1 Gm Premix) 1 gm in 50 mls @ 100 mls/hr IVPB Q12H [facility]; Protocol Last Admin: 09/22/18 17:44 Dose: 100 mls/hr Fluconazole (Diflucan Iv 100 Mg/50 Ml Ns) 50 mls @ 100 mls/hr IVPB Q24H [facility]; Protocol Last Admin: 09/22/18 18:35 Dose: 100 mls/hr Losartan Potassium (Cozaar) 100 mg PO DAILY [facility] Last Admin: 09/22/18 09:42 Dose: 100 mg Methylprednisolone (Solu-Medrol) 40 mg IVP Q12 [facility] Last Admin: 09/22/18 09:44 Dose: 40 mg Metoprolol Tartrate (Lopressor) 25 mg PO BID [facility] Last Admin: 09/22/18 17:45 Dose: 25 mg Montelukast Sodium (Singulair) 10 mg PO DAILY [facility] Last Admin: 09/22/18 09:42 Dose: 10 mg Paroxetine HCl (Paxil) 30 mg PO DAILY [facility] Last Admin: 09/22/18 09:43 Dose: 30 mg Promethazine HCl (Phenergan Syrup) 6.25 mg PO Q6 PRN PRN Reason: Cough Last Admin: 09/22/18 09:44 Dose: 6.25 mg Tiotropium Gleason (Spiriva) 18 mcg INH RQ24 CAS Last Admin: 09/22/18 07:55 Dose: Not Given Zolpidem Tartrate (Ambien) 5 mg PO DAILY PRN PRN Reason: Insomnia Last Admin: 09/21/18 21:36 Dose: 5 mg - Labs Labs: 09/21/18 08:19 09/21/18 08:19
--- NOTE | 2018-09-22 22:47 | CARD ---
APPROVED REPORT Date of service: 09/19/2018 EKG Measurement Heart [id number] <Conclusion> Normal sinus rhythm Possible Left atrial enlargement Left axis deviation Cannot rule out Anterior infarct, age undetermined Abnormal ECG
--- NOTE | 2018-09-23 01:21 | PN ---
DATE: 09/22/2018 SUBJECTIVE: Rubi Toledo is improving. She has less cough, less short of breath, less wheezing. PHYSICAL EXAMINATION: VITAL SIGNS: Blood pressure 138/69, pulse 58, respiratory rate 20, temperature 97.6. LUNGS: Bilateral fine crackles all over the lung [place]. Decreased air entry. CVS: S1, S2. Regular. ABDOMEN: Soft, nontender. Bowel sounds are positive. ASSESSMENT: 1. Pneumonia. 2. Interstitial pulmonary fibrosis, on antibiotics and Solu-Medrol. 3. Hypertension. PLAN: Continue current medication. Follow up with Pulmonary. Monitor the patient. Andres Concepcion MD
[2018-09-23] MEDS: Albuterol-Ipratrop 3 mg / 0.5 (3 ml) UD INH SCH ×3 (01:47→19:57)
[2018-09-23] MEDS: Cefepime IV 1 gm in Dextrose 1 GM/50 ML BAG IVPB SCH ×2 (05:32→18:00)
[2018-09-23] MEDS: Tiotropium 18 mcg Cap For Inhalation INH SCH (08:37)
[2018-09-23] MEDS: ESBRIET 267 MG PO SCH ×3 (09:12→17:46)
[2018-09-23] MEDS: MethylPREDNISolone 40 mg Vial IVP SCH ×2 (09:14→21:35)
[2018-09-23] MEDS: Enoxaparin 30 mg Syringe SC SCH (09:14)
[2018-09-23] MEDS: Fluconazole IV 100mg/50 ml NS 50 ML IVPB SCH (16:12)
[2018-09-23] MEDS: Promethazine 6.25 MG/5 ML CUP PO PRN ×2 (16:47→21:35)
--- NOTE | 2018-09-23 17:30 | CP.PCM.PN ---
Subjective - Date & Time of Evaluation Date of Evaluation: 09/23/18 Time of Evaluation: 11:20 - Subjective Subjective: Ms. Toledo was seen and examined at bedside this morning. Resting comfortably in bed. No acute events noted overnight. Patient states that her breathing has improved since yesterday and that her cough is now less frequent and less produc tive. However, since last night, the little sputum that she is expectorating has changed color. It was visualized at bedside to be brown/rust color. She denies any subjective fever/chills, dyspnea, nausea, vomiting, myalgia, diarrhea, or abdominal pain. No other complaints are noted. Exam: Gen: No acute distress. AAOx3 HEENT: Moist mucosa. (+) Tender sinuses, boggy turbinates Card: RRRR. Lungs: No tachpnea or respiratory distress. Symmetric chest excursions. (+) Coarse crackles noted in the bilateral bases, (+) Rhonchi present Abd: Soft, non-distended. Normal bowel sounds. No tenderness to palpation. A&P 1. Pneumonia - Afebrile today 98.4 - Cultures positive for yeast species (09/21); Continue IV fluconazole - Mycoplasma and legionella negative - Continue IV antibiotics - Continue guaifenesin for cough/congestion 2. COPD exacerbation - Continue duonebs, singulair and IV solu-medrol 3. Pulmonary fibrosis, idiopathic - Continue anti-fibrotic agent Pirfenidone 801mg PO TID Objective - Vital Signs/Intake and Output Vital Signs (last 24 hours): Temp Pulse Resp BP Pulse Ox 98.4 F 58 L 20 146/62 95 09/23/18 07:59 09/23/18 07:59 09/23/18 07:59 09/23/18 09:14 09/23/18 07:59 Intake and Output: 09/23/18 09/23/18 06:59 18:59 Intake Total 620 360 Output Total 600 Balance 20 360 - Medications Medications: Current Medications Albuterol/Ipratropium (Duoneb 3 Mg/0.5 Mg (3 Ml) Ud) 3 ml INH RQ6 [facility] Last Admin: 09/23/18 08:37 Dose: 3 ml Aspirin (Ecotrin) 81 mg PO DAILY [facility] Last Admin: 09/23/18 09:14 Dose: 81 mg Enoxaparin Sodium (Lovenox) 30 mg SC DAILY [facility] Last Admin: 09/23/18 09:14 Dose: 30 mg Famotidine (Pepcid) 20 mg PO DAILY [facility] Last Admin: 09/23/18 09:16 Dose: 20 mg Home Med (Patient's Own Medication) 3 tab PO TID [facility] Last Admin: 09/23/18 13:22 Dose: 3 tab Cefepime HCl (Maxipime Iv 1 Gm Premix) 1 gm in 50 mls @ 100 mls/hr IVPB Q12H [facility]; Protocol Last Admin: 09/23/18 05:32 Dose: 100 mls/hr Fluconazole (Diflucan Iv 100 Mg/50 Ml Ns) 50 mls @ 100 mls/hr IVPB Q24H [facility]; Protocol Last Admin: 09/23/18 16:12 Dose: 100 mls/hr Losartan Potassium (Cozaar) 100 mg PO DAILY [facility] Last Admin: 09/23/18 09:14 Dose: 100 mg Methylprednisolone (Solu-Medrol) 40 mg IVP Q12 [facility] Last Admin: 09/23/18 09:14 Dose: 40 mg Metoprolol Tartrate (Lopressor) 25 mg PO BID [facility] Last Admin: 09/23/18 09:14 Dose: 25 mg Montelukast Sodium (Singulair) 10 mg PO DAILY [facility] Last Admin: 09/23/18 09:14 Dose: 10 mg Paroxetine HCl (Paxil) 30 mg PO DAILY [facility] Last Admin: 09/23/18 10:02 Dose: 30 mg Promethazine HCl (Phenergan Syrup) 6.25 mg PO Q6 PRN PRN Reason: Cough Last Admin: 09/23/18 16:47 Dose: 6.25 mg Tiotropium [place] (Spiriva) 18 mcg INH RQ24 [facility] Last Admin: 09/23/18 08:37 Dose: 18 mcg Zolpidem Tartrate (Ambien) 5 mg PO DAILY PRN PRN Reason: Insomnia Last Admin: 09/22/18 22:09 Dose: 5 mg - Labs Labs: 09/21/18 08:19 09/21/18 08:19
--- NOTE | 2018-09-23 21:13 | CP.PCM.PN ---
Subjective - Date & Time of Evaluation Date of Evaluation: 09/23/18 Time of Evaluation: 10:00 - Subjective Subjective: dictated Objective - Vital Signs/Intake and Output Vital Signs (last 24 hours): Temp Pulse Resp BP Pulse Ox 97.3 F L 60 20 158/59 H 96 09/23/18 17:37 09/23/18 17:37 09/23/18 17:37 09/23/18 17:44 09/23/18 17:37 Intake and Output: 09/23/18 09/24/18 18:59 06:59 Intake Total 360 Balance 360 - Medications Medications: Current Medications Albuterol/Ipratropium (Duoneb 3 Mg/0.5 Mg (3 Ml) Ud) 3 ml INH RQ6 [facility] Last Admin: 09/23/18 19:57 Dose: 3 ml Aspirin (Ecotrin) 81 mg PO DAILY [facility] Last Admin: 09/23/18 09:14 Dose: 81 mg Enoxaparin Sodium (Lovenox) 30 mg SC DAILY [facility] Last Admin: 09/23/18 09:14 Dose: 30 mg Famotidine (Pepcid) 20 mg PO DAILY [facility] Last Admin: 09/23/18 09:16 Dose: 20 mg Home Med (Patient's Own Medication) 3 tab PO TID [facility] Last Admin: 09/23/18 17:46 Dose: 3 tab Cefepime HCl (Maxipime Iv 1 Gm Premix) 1 gm in 50 mls @ 100 mls/hr IVPB Q12H [facility]; Protocol Last Admin: 09/23/18 05:32 Dose: 100 mls/hr Fluconazole (Diflucan Iv 100 Mg/50 Ml Ns) 50 mls @ 100 mls/hr IVPB Q24H [facility]; Protocol Last Admin: 09/23/18 16:12 Dose: 100 mls/hr Losartan Potassium (Cozaar) 100 mg PO DAILY [facility] Last Admin: 09/23/18 09:14 Dose: 100 mg Methylprednisolone (Solu-Medrol) 40 mg IVP Q12 [facility] Last Admin: 09/23/18 09:14 Dose: 40 mg Metoprolol Tartrate (Lopressor) 25 mg PO BID [facility] Last Admin: 09/23/18 17:44 Dose: 25 mg Montelukast Sodium (Singulair) 10 mg PO DAILY [facility] Last Admin: 09/23/18 09:14 Dose: 10 mg Paroxetine HCl (Paxil) 30 mg PO DAILY [facility] Last Admin: 09/23/18 10:02 Dose: 30 mg Promethazine HCl (Phenergan Syrup) 6.25 mg PO Q6 PRN PRN Reason: Cough Last Admin: 09/23/18 16:47 Dose: 6.25 mg Tiotropium [place] (Spiriva) 18 mcg INH RQ24 [facility] Last Admin: 09/23/18 08:37 Dose: 18 mcg Zolpidem Tartrate (Ambien) 5 mg PO DAILY PRN PRN Reason: Insomnia Last Admin: 09/22/18 22:09 Dose: 5 mg - Labs Labs: 09/21/18 08:19 09/21/18 08:19
[2018-09-24] MEDS: Albuterol-Ipratrop 3 mg / 0.5 (3 ml) UD INH SCH ×2 (01:23→08:40)
--- NOTE | 2018-09-24 01:48 | PN ---
DATE: 09/23/2018 SUBJECTIVE: The patient is feeling better, less cough, less shortness of breath, better aeration. No nausea or vomiting. The patient has been seen by Pulmonary. Sputum production is decreasing. Chest congestion is decreasing. The patient is on Singulair, DuoNeb, Solu-Medrol. PHYSICAL EXAMINATION: VITAL SIGNS: Blood pressure 158/59, pulse 60, respiratory rate 20, temperature 99.3. LUNGS: Bilateral diffuse fine crackles. CARDIOVASCULAR SYSTEM: S1 and S2, regular. ABDOMEN: Soft. ASSESSMENT: 1. Pneumonia. 2. Interstitial pulmonary fibrosis. 3. Hypertension. 4. Anemia. PLAN: Continue per Pulmonary. Antibiotics. Monitor the patient. Andres Concepcion MD
[2018-09-24] MEDS: Cefepime IV 1 gm in Dextrose 1 GM/50 ML BAG IVPB SCH ×2 (05:32→18:50)
[2018-09-24] MEDS: Tiotropium 18 mcg Cap For Inhalation INH SCH (08:40)
[2018-09-24] MEDS: Promethazine 6.25 MG/5 ML CUP PO PRN ×2 (10:19→17:29)
[2018-09-24] MEDS: Enoxaparin 30 mg Syringe SC SCH (10:21)
[2018-09-24] MEDS: MethylPREDNISolone 40 mg Vial IVP SCH (10:21)
[2018-09-24] MEDS: ESBRIET 267 MG PO SCH ×3 (10:26→17:29)
[2018-09-24 11:33] LABS: ALB/GLOB RATIO 1.1 (1.0-2.1); ALBUMIN 3.3 g/dL (3.5-5.0); ALT/SGPT 22 U/L (9-52); AST/SGOT 28 U/L (14-36); BLOOD UREA NITROGEN 28 mg/dL (7-17); CALCIUM 8.4 mg/dl (8.6-10.4); GFR NON-AFRICAN AMERICAN 60
--- NOTE | 2018-09-24 12:19 | CP.PCM.PN ---
Subjective - Date & Time of Evaluation Date of Evaluation: 09/24/18 Time of Evaluation: 07:00 - Subjective Subjective: Patient seen and examined Still complaining of cough with dark brown phlegm Denies fever chills, denies chest pain Breathing better but still has dyspnea on exertion Objective - Vital Signs/Intake and Output Vital Signs (last 24 hours): Temp Pulse Resp BP Pulse Ox 98.4 F 64 20 140/70 97 09/24/18 08:00 09/24/18 08:00 09/24/18 08:00 09/24/18 08:00 09/24/18 08:00 Intake and Output: 09/24/18 09/24/18 06:59 18:59 Intake Total 620 Output Total 600 Balance 20 - Medications Medications: Current Medications Aspirin (Ecotrin) 81 mg PO DAILY [facility] Last Admin: 09/24/18 10:18 Dose: 81 mg Enoxaparin Sodium (Lovenox) 30 mg SC DAILY [facility] Last Admin: 09/24/18 10:21 Dose: 30 mg Famotidine (Pepcid) 20 mg PO DAILY [facility] Last Admin: 09/24/18 10:17 Dose: 20 mg Home Med (Patient's Own Medication) 3 tab PO TID [facility] Last Admin: 09/24/18 10:26 Dose: 3 tab Cefepime HCl (Maxipime Iv 1 Gm Premix) 1 gm in 50 mls @ 100 mls/hr IVPB Q12H [facility]; Protocol Last Admin: 09/24/18 05:32 Dose: 100 mls/hr Fluconazole (Diflucan Iv 100 Mg/50 Ml Ns) 50 mls @ 100 mls/hr IVPB Q24H [facility]; Protocol Last Admin: 09/23/18 16:12 Dose: 100 mls/hr Losartan Potassium (Cozaar) 100 mg PO DAILY [facility] Last Admin: 09/24/18 10:17 Dose: 100 mg Methylprednisolone (Solu-Medrol) 40 mg IVP Q12 [facility] Last Admin: 09/24/18 10:21 Dose: 40 mg Metoprolol Tartrate (Lopressor) 50 mg PO BID [facility] Last Admin: 09/24/18 10:18 Dose: 50 mg Montelukast Sodium (Singulair) 10 mg PO DAILY [facility] Last Admin: 09/24/18 10:24 Dose: 10 mg Paroxetine HCl (Paxil) 30 mg PO DAILY [facility] Last Admin: 09/24/18 10:19 Dose: 30 mg Promethazine HCl (Phenergan Syrup) 6.25 mg PO Q6 PRN PRN Reason: Cough Last Admin: 09/24/18 10:19 Dose: 6.25 mg Tiotropium [place] (Spiriva) 18 mcg INH RQ24 [facility] Last Admin: 09/24/18 08:40 Dose: 18 mcg Zolpidem Tartrate (Ambien) 5 mg PO DAILY PRN PRN Reason: Insomnia Last Admin: 09/23/18 21:35 Dose: 5 mg - Labs Labs: 09/21/18 08:19 09/24/18 11:08 - Head Exam Head Exam: ATRAUMATIC, NORMOCEPHALIC - ENT Exam ENT Exam: Mucous Membranes Moist - Neck Exam Neck Exam: Normal Inspection - Respiratory Exam Respiratory Exam: Rales, Rhonchi - Cardiovascular Exam Cardiovascular Exam: REGULAR RHYTHM - GI/Abdominal Exam GI & Abdominal Exam: Soft, Normal Bowel Sounds Assessment and Plan (1) Pneumonia Assessment & Plan: Sputum positive for yeast Patient coughing brownish phlegm Continue Diflucan intravenous for total of 10 days Continue cefepime for total of 10 days Patient can go to rehab Taper steroids cont esberiet Continue Protonix Status: Acute (2) COPD with exacerbation Status: Chronic (3) IPF (idiopathic pulmonary fibrosis) Status: Chronic
--- NOTE | 2018-09-24 12:26 | CP.PCM.PN ---
Subjective - Date & Time of Evaluation Date of Evaluation: 09/24/18 Time of Evaluation: 07:20 - Subjective Subjective: dictated Objective - Vital Signs/Intake and Output Vital Signs (last 24 hours): Temp Pulse Resp BP Pulse Ox 98.4 F 64 20 140/70 97 09/24/18 08:00 09/24/18 08:00 09/24/18 08:00 09/24/18 08:00 09/24/18 08:00 Intake and Output: 09/24/18 09/24/18 06:59 18:59 Intake Total 620 Output Total 600 Balance 20 - Medications Medications: Current Medications Aspirin (Ecotrin) 81 mg PO DAILY [facility] Last Admin: 09/24/18 10:18 Dose: 81 mg Enoxaparin Sodium (Lovenox) 30 mg SC DAILY [facility] Last Admin: 09/24/18 10:21 Dose: 30 mg Famotidine (Pepcid) 20 mg PO DAILY [facility] Last Admin: 09/24/18 10:17 Dose: 20 mg Home Med (Patient's Own Medication) 3 tab PO TID [facility] Last Admin: 09/24/18 10:26 Dose: 3 tab Cefepime HCl (Maxipime Iv 1 Gm Premix) 1 gm in 50 mls @ 100 mls/hr IVPB Q12H [facility]; Protocol Last Admin: 09/24/18 05:32 Dose: 100 mls/hr Fluconazole (Diflucan Iv 100 Mg/50 Ml Ns) 50 mls @ 100 mls/hr IVPB Q24H [facility]; Protocol Last Admin: 09/23/18 16:12 Dose: 100 mls/hr Losartan Potassium (Cozaar) 100 mg PO DAILY [facility] Last Admin: 09/24/18 10:17 Dose: 100 mg Methylprednisolone (Solu-Medrol) 40 mg IVP Q12 [facility] Last Admin: 09/24/18 10:21 Dose: 40 mg Metoprolol Tartrate (Lopressor) 50 mg PO BID [facility] Last Admin: 09/24/18 10:18 Dose: 50 mg Montelukast Sodium (Singulair) 10 mg PO DAILY [facility] Last Admin: 09/24/18 10:24 Dose: 10 mg Paroxetine HCl (Paxil) 30 mg PO DAILY [facility] Last Admin: 09/24/18 10:19 Dose: 30 mg Promethazine HCl (Phenergan Syrup) 6.25 mg PO Q6 PRN PRN Reason: Cough Last Admin: 09/24/18 10:19 Dose: 6.25 mg Tiotropium [place] (Spiriva) 18 mcg INH RQ24 [facility] Last Admin: 09/24/18 08:40 Dose: 18 mcg Zolpidem Tartrate (Ambien) 5 mg PO DAILY PRN PRN Reason: Insomnia Last Admin: 09/23/18 21:35 Dose: 5 mg - Labs Labs: 09/21/18 08:19 09/24/18 11:08
[2018-09-24] MEDS: Fluconazole IV 100mg/50 ml NS 50 ML IVPB SCH (16:33)
[2018-09-24 16:40] VITALS: BP 153/71; PULSE 55; TEMP 97.8; O2SAT 95
--- NOTE | 2018-09-24 18:15 | PN ---
DATE: 09/24/2018 SUBJECTIVE: The patient feels a little bit dyspneic. Overall, she is feeling better. She is on steroids. PHYSICAL EXAMINATION: VITAL SIGNS: She is afebrile. Blood pressure 140/70, pulse 64, respiratory rate 20, and temperature 98.4. LUNGS: Bilateral fine crackles. CARDIOVASCULAR SYSTEM: S1 and S2, regular. ABDOMEN: Soft. ASSESSMENT: 1. Acute bronchitis, rule out pneumonia. 2. Interstitial pulmonary fibrosis. 3. Hypertension. PLAN: Increase metoprolol and we will discuss with Pulmonary for possible discharge. Andres Concepcion MD
--- NOTE | 2018-09-25 07:54 | CP.PCM.PN ---
Subjective - Date & Time of Evaluation Date of Evaluation: 09/24/18 Time of Evaluation: 13:00 - Subjective Subjective: patient seen today states feels better, c/o sob on activity ,and cough with phlegm, denies any chest pain, sob, dizziness, abdominal pain,fever or chills vss and labs reviewed- stable and a febrile Objective - Vital Signs/Intake and Output Vital Signs (last 24 hours): Temp Pulse Resp BP Pulse Ox 97.8 F 55 L 20 153/71 H 95 09/24/18 16:00 09/24/18 16:00 09/24/18 16:00 09/24/18 16:00 09/24/18 16:00 - Labs Labs: 09/21/18 08:19 09/24/18 11:08 - Constitutional Appears: No Acute Distress - Respiratory Exam Respiratory Exam: Decreased Breath Sounds, Rhonchi, Wheezes, NORMAL BREATHING PATTERN Assessment and Plan - Assessment and Plan (Free Text) Assessment: A/P 83 year old female with Hx of pulmonary fibrosis admitted with pneumonia a febrile clinically improved with steroids and IV antibiotics sputum culture-+ yeast and started on diflucan blood and urine culture - negative Dr. Basilio pul. consult , D/w Dr. Basilio continue cefepime and diflucan for total of 10 days and pat can be discharged to [facility] from pul. standpoint D/W Dr. Concepcion cleared for discharged to [facility] today and Dr. Concepcion will follow the patient at rehab
== END 2018-09-24 21:21 | DRG 190 ==
LOC: C.ER 23:50 → C.9E 09-19 03:56 → C.3T 09-19 16:16 → OBSVTOIN 09-21 21:12 → C.3T 09-23 20:50
PROVIDERS: ADMIT Internal Medicine; ATTEND Internal Medicine
DX: J43.9 Emphysema, unspecified (principal); J18.9 Pneumonia, unspecified organism; J47.0 Bronchiectasis with acute lower respiratory infection; N39.0 Urinary tract infection, site not specified; J84.112 Idiopathic pulmonary fibrosis; J20.9 Acute bronchitis, unspecified; I12.9 Hypertensive chronic kidney disease with stage 1 through stage 4 chronic kidney disease, or unspecified chronic kidney disease; N18.9 Chronic kidney disease, unspecified; D64.9 Anemia, unspecified; J30.9 Allergic rhinitis, unspecified; F41.9 Anxiety disorder, unspecified; F32.9 Major depressive disorder, single episode, unspecified; E11.22 Type 2 diabetes mellitus with diabetic chronic kidney disease; Z99.81 Dependence on supplemental oxygen; E78.00 Pure hypercholesterolemia, unspecified; E78.5 Hyperlipidemia, unspecified; M81.0 Age-related osteoporosis without current pathological fracture; Z80.0 Family history of malignant neoplasm of digestive organs; Z87.440 Personal history of urinary (tract) infections; Z90.710 Acquired absence of both cervix and uterus

== ENCOUNTER 2018-12-31 17:51 | Inpatient (IN) | payer MEDICARE, MEDICAID ==
[2018-12-31 18:18] VITALS: BMI 35.2
[2018-12-31 19:22] LABS: BASO % 0.6 % (0.0-2.0); EOS # 0.2 K/uL (0.0-0.7); EOS % 2.1 % (0.0-4.0); HEMOGLOBIN 11.2 g/dL (11.0-16.0); LYMPH # 1.2 K/uL (1.0-4.3); LYMPH % 14.3 % (20.0-40.0); MEAN CELL VOLUME 86.7 fL (81.0-99.0); MEAN CORPUSCULAR HEMOGLOBIN 28.3 pg (27.0-31.0); MEAN CORPUSCULAR HGB CONC 32.7 g/dL (33.0-37.0); MEAN PLATELET VOLUME 7.5 fL (7.2-11.7); MONO # 0.7 K/uL (0.0-0.8); MONO % 8.3 % (0.0-10.0); NEUT # 6.1 K/uL (1.8-7.0); NEUT % 74.7 % (50.0-75.0); NRBC % 0.1 % (0.0-2.0); RBC 3.96 Mil/uL (3.80-5.20); RED CELL DISTRIBUTION WIDTH 17.9 % (11.5-14.5); WHITE BLOOD COUNT 8.1 K/uL (4.8-10.8)
--- NOTE | 2018-12-31 19:24 | C.PDOC ---
History Of Present Illness 83 year old female with PMHx of HTN, COPD on home O2, presents to the ED c/o left sided abdominal pain for the past 4 days. Patient reports she was recently diagnosed by her PMD with diverticulitis. Patient states pain is not getting better presents to the ED for evaluation. Patient denies any other complaints. Time Seen by Provider: 12/31/18 18:49 Chief Complaint (Nursing): Abdominal Pain History Per: Patient History/Exam Limitations: no limitations Onset/Duration Of Symptoms: Days (4) Current Symptoms Are (Timing): Still Present Location Of Pain/Discomfort: LUQ, LLQ Quality Of Discomfort: "Pain" Associated Symptoms: denies: Nausea, Vomiting, Diarrhea, Urinary Symptoms Recent travel outside of the [place]: No Additional History Per: Patient Abnormal Vaginal Bleeding: No Past Medical History Reviewed: Historical Data, Nursing Documentation, Vital Signs Vital Signs: Last Vital Signs Temp 98.6 F 12/31/18 18:14 Pulse 86 12/31/18 18:14 Resp 18 12/31/18 18:14 BP 156/80 H 12/31/18 18:14 Pulse Ox 97 12/31/18 18:14 Primary Care Provider: Andres Concepcion - Medical History PMH: Anxiety, Arthritis (B/L KNEE), Bronchitis, COPD (BRONCHITIS), Depression, Diverticulitis, Emphysema, HTN, Hypercholesterolemia, Osteoporosis, Peripheral Edema, Pneumonia Denies: Chronic Kidney Disease Surgical History: - [facility] Procedures CENTRAL VENOUS CATHETER PLACEMENT WITH GUIDANCE (08/22/14) Family History: States: Diabetes - Social History Hx Tobacco Use: No Hx Alcohol Use: No Hx Substance Use: No - Immunization History Hx Tetanus Toxoid Vaccination: Yes Hx Influenza Vaccination: Yes (may 2018) Hx Pneumococcal Vaccination: Yes Review Of Systems Constitutional: Negative for: Fever, Chills Cardiovascular: Negative for: Chest Pain, Palpitations Respiratory: Negative for: Shortness of Breath Gastrointestinal: Positive for: Abdominal Pain. Negative for: Nausea, Vomiting Musculoskeletal: Negative for: Back Pain Skin: Negative for: Rash Neurological: Negative for: Weakness, Numbness, Headache Physical Exam - Physical Exam Appears: Non-toxic, No Acute Distress Skin: Normal Color, Warm, Dry Head: Atraumatic, Normacephalic Eye(s): bilateral: Normal Inspection Oral Mucosa: Moist Neck: Normal ROM, Supple Chest: Symmetrical Cardiovascular: Rhythm Regular Respiratory: Normal Breath Sounds, No Rales, No Rhonchi, No Wheezing Gastrointestinal/Abdominal: Soft, Tenderness (left sided), No Guarding, No Rebound Extremity: Normal ROM, No Tenderness, No Swelling Neurological/Psych: Oriented x3, Normal Speech, Normal Cognition Gait: Steady ED Course And Treatment - Laboratory Results Result Diagrams: 12/31/18 19:19 12/31/18 19:19 O2 Sat by Pulse Oximetry: 97 (ON RA) Pulse Ox Interpretation: Normal Medical Decision Making Medical Decision Making: ro diverticultis Plan: * Labs * UA ct neg for diverticulot (+)for pna. cxr (+)infiltrate noted vs underlying fi brosis. accepted dr concepcion. Disposition - Disposition Disposition: HOSPITALIZED Disposition Time: 09:45 Condition: GOOD - Clinical Impression Clinical Impression: Pneumonia, Abdominal pain - Scribe Statement The provider has reviewed the documentation as recorded by the Scribe Crescencio Solis All medical record entries made by the Scribe were at my direction and personally dictated by me. I have reviewed the chart and agree that the record accurately reflects my personal performance of the history, physical exam, medical decision making, and the department course for this patient. I have also personally directed, reviewed, and agree with the discharge instructions and disposition. Decision To Admit - Pt Status Changed To: Hospital Disposition Of: Inpatient - Admit Certification Admit to Inpatient:: After my assessment, the patient will require hospitalization for at least two midnights. This is because of the severity of symptoms shown, intensity of services needed, and/or the medical risk in this patient being treated as an outpatient. - InPatient: Physician Admission Certification:: need iv antiboics large pna. - . Bed Request Type: Regular Admitting Physician: Andres Concepcion Patient Diagnosis: Pneumonia
[2018-12-31 19:31] LABS: INR 1.3; PARTIAL THROMBOPLASTIN TIME 31.8 SECONDS (21-34); PROTHROMBIN TIME 13.7 SECONDS (9.7-12.2)
[2018-12-31 19:34] LABS: ALB/GLOB RATIO 1.1 (1.0-2.1); ALBUMIN 3.5 g/dL (3.5-5.0); ALT/SGPT 12 U/L (9-52); AST/SGOT 18 U/L (14-36); BLOOD UREA NITROGEN 17 mg/dL (7-17); CALCIUM 8.2 mg/dl (8.6-10.4); GFR NON-AFRICAN AMERICAN > 60; LIPASE 15 U/L (23-300)
[2018-12-31] MEDS ORDERED: Iodixanol 320 MG/ML 100 ML BOTTLE IV ONE ×2 (19:58→20:15)
[2018-12-31 20:17] LABS: SQUAMOUS EPITHIAL 15 /hpf (0-5); URINE BACTERIA FEW (<OCC); URINE BILIRUBIN NEGATIVE (NEGATIVE); URINE BLOOD NEGATIVE (NEGATIVE); URINE CLARITY Hazy (Clear); URINE COLOR Yellow (YELLOW); URINE GLUCOSE (UA) NORMAL (Normal); URINE LEUKOCYTE ESTERASE 2+ Leu/uL (Negative); URINE PROTEIN NEGATIVE (NEGATIVE); URINE UROBILINOGEN NORMAL mg/dL (0.2-1.0)
[2018-12-31] MEDS ORDERED: Azithromycin 500 MG in Sodium Chloride 0.9% 250 ML IVPB STA (22:53)
[2018-12-31] MEDS ORDERED: guaiFENesin 200 mg/10 ml Syrup UD PO PRN (23:24)
[2018-12-31] MEDS ORDERED: Azithromycin 500mg/250ML NS 500 MG/250 ML BAG IVPB ONE (23:29)
[2019-01-01] MEDS ORDERED: ARNUITY ELLIPTA 200 MCG PO SCH (06:00)
[2019-01-01] MEDS ORDERED: Albuterol 0.083% Inhal Sol (2.5 mg/3 mL) UD INH SCH (08:00)
[2019-01-01] MEDS: ESBRIET PO SCH ×3 (08:55→17:14)
[2019-01-01] MEDS ORDERED: Albuterol HFA 90 mcg/actuation (8 g) IH SCH (10:00)
[2019-01-01] MEDS ORDERED: Home Med 1 UNIT (Meloxicam [Mobic] 7.5 MG) PO SCH (10:00)
[2019-01-01] MEDS ORDERED: Home Med 1 UNIT (Alendronate [Fosamax] 70 MG) PO SCH (10:00)
[2019-01-01] MEDS ORDERED: Home Med 1 UNIT (Ranitidine Hcl [Ranitidine Hcl] 150 MG) PO SCH (10:00)
[2019-01-01] MEDS ORDERED: Home Med 1 UNIT (Levocetirizine Dihydrochloride [Levocetirizine Dihydrochloride] 5 MG) PO SCH (10:00)
[2019-01-01] MEDS ORDERED: Potassium Chloride 20 mEq ER Tab PO SCH (10:00)
[2019-01-01] MEDS ORDERED: Home Med 1 UNIT (Umeclidinium Brm/Vilanterol Tr [Anoro Ellipta 62.5-25 Mcg Inh] 1 EACH) IH SCH (10:00)
[2019-01-01] MEDS ORDERED: Furosemide 10 mg/mL LIQ (60mL) PO SCH (10:00)
[2019-01-01] MEDS ORDERED: Albuterol-Ipratrop 3 mg / 0.5 (3 ml) UD IH PRN (10:00)
[2019-01-01] MEDS: Azithromycin 500 MG in Sodium Chloride 0.9% 250 ML IVPB SCH (10:34)
[2019-01-01] MEDS: Potassium Chloride 10 mEq ER Tab PO SCH (10:34)
[2019-01-01] MEDS: Enoxaparin 40 mg Syringe SC SCH (10:35)
[2019-01-01] MEDS ORDERED: Budesonide 0.5 mg/2 ml Inhal Susp UD IH SCH (11:45)
[2019-01-01] MEDS ORDERED: Furosemide 10 mg/mL LIQ (60mL) PO ONE (12:00)
--- NOTE | 2019-01-01 12:57 | CT ---
Date of service: 12/31/2018 PROCEDURE: CT abdomen and pelvis HISTORY: Left sided abd pain COMPARISON: Comparison made with CT scan abdomen pelvis 127 2018. TECHNIQUE: Contiguous axial images of the abdomen and pelvis performed following intravenous injection of approximately 100 cc Visipaque 320 contrast material. Additional 2D sagittal and coronal reformats generated. Radiation dose: Total exam DLP = 1099.88 mGy-cm. This CT exam was performed using one or more of the following dose reduction techniques: Automated exposure control, adjustment of the mA and/or kV according to patient size, and/or use of iterative reconstruction technique. FINDINGS: LOWER THORAX: Heart is enlarged. No significant pericardial effusion. Small hiatal hernia. Ground-glass and more confluent opacities seen in the lung bases possibly representing combination of atelectasis and air trapping however developing lower lobe infiltrates should be excluded with follow-up studies. LIVER: Unremarkable. No gross lesion or ductal dilatation. Mild fatty hepatic infiltration. GALLBLADDER AND BILE DUCTS: Unremarkable. Gallbladder is physiologically distended. No evidence of intraluminal gallbladder calculi. PANCREAS: Pancreas atrophic and fatty replaced. No obvious pancreatic mass collection or calcification. SPLEEN: Unremarkable. No splenomegaly. ADRENALS: Slightly nodular appearing left adrenal gland KIDNEYS AND URETERS: Kidneys demonstrate symmetric nephrograms. No evidence of nephrolithiasis or hydronephrosis. BLADDER: The urinary bladder is incompletely distended with slight thick-walled appearance. Correlate correlation with urinalysis recommended to exclude cystitis. REPRODUCTIVE: Hysterectomy APPENDIX: No evidence of acute appendicitis BOWEL: Evaluation of the bowel is somewhat limited due to the lack of oral contrast material. Stomach is incompletely distended. Visualized loops of small bowel exhibit normal contour and caliber. No evidence of acute mechanical small bowel obstruction.. Moderate amount of stool seen within the cecum and at ascending as well as to a slightly lesser degree transverse colon consistent with mild fecal retention. Diverticulosis without radiographic evidence of acute diverticulitis. PERITONEUM: Unremarkable. No fluid collection. No free air. Small fat containing umbilical hernia LYMPH NODES: Unremarkable. No enlarged lymph nodes. VASCULATURE: Unremarkable. No aortic aneurysm. Aortic atherosclerotic calcification or mural plaque present.. BONES: Mild multilevel degenerative spondylosis of the lower thoracic and lumbar spine. OTHER FINDINGS: None. IMPRESSION: Ground-glass and more confluent opacities in the lower lobes possibly representing air trapping and atelectasis though developing lower lobe infiltrate should be excluded with follow-up radiographs. Diverticulosis without radiographic evidence of acute diverticulitis. Moderate amount of stool is also present throughout the cecum at ascending and transverse colon consistent with fecal retention/constipation. Mild fatty hepatic infiltration. Mild urinary bladder wall thickening possibly in part due to incomplete distention however urinalysis recommended to exclude cystitis. Slightly nodular appearing left adrenal gland Hysterectomy
--- NOTE | 2019-01-01 15:08 | RAD ---
Date of service: 12/31/2018 HISTORY: abd pain COMPARISON: Comparison chest dated 09/19/2018. Comparison also made with CT chest 09/19/2018. TECHNIQUE: 1 view obtained. FINDINGS: LUNGS: Poor inspiration with low lung volumes common crowded bronchovascular markings and bibasilar atelectasis. Underlying chronic scarring/architectural distortion changes less well seen on this exam as compared to prior CT scan. PLEURA: No significant pleural effusion identified, no pneumothorax apparent. CARDIOVASCULAR: Previously noted aortic atherosclerotic calcification seen on prior CT scan is poorly delineated on this exam Cardiomegaly. OSSEOUS STRUCTURES: No significant abnormalities. VISUALIZED UPPER ABDOMEN: Normal. OTHER FINDINGS: None. IMPRESSION: Poor inspiration with low lung volumes common crowded bronchovascular markings and bibasilar atelectasis. Underlying chronic scarring/architectural distortion changes less well seen on this exam as compared to prior CT scan.
[2019-01-01 16:36] VITALS: RESP 20
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
[2019-01-02 04:58] LABS: SQUAMOUS EPITHIAL 1 /hpf (0-5); URINE BACTERIA RARE (<OCC); URINE BILIRUBIN NEGATIVE (NEGATIVE); URINE BLOOD NEGATIVE (NEGATIVE); URINE CLARITY Clear (Clear); URINE COLOR Yellow (YELLOW); URINE GLUCOSE (UA) NORMAL (Normal); URINE LEUKOCYTE ESTERASE NEG Leu/uL (Negative); URINE PROTEIN NEGATIVE (NEGATIVE); URINE UROBILINOGEN NORMAL mg/dL (0.2-1.0)
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
[2019-01-02] MEDS: ESBRIET PO SCH ×3 (08:48→17:12)
[2019-01-02] MEDS: Potassium Chloride 10 mEq ER Tab PO SCH (09:40)
[2019-01-02] MEDS: Enoxaparin 40 mg Syringe SC SCH (09:41)
[2019-01-02] MEDS: Azithromycin 500 MG in Sodium Chloride 0.9% 250 ML IVPB SCH (10:20)
[2019-01-02] MEDS ORDERED: Alendronate [Fosamax] 70 MG PO SCH (11:15)
--- NOTE | 2019-01-02 13:31 | CP.PCM.PN ---
Subjective - Date & Time of Evaluation Date of Evaluation: 01/02/19 Time of Evaluation: 08:20 - Subjective Subjective: dict Objective - Vital Signs/Intake and Output Vital Signs (last 24 hours): Temp Pulse Resp BP Pulse Ox 97.7 F 94 H 20 172/77 H 95 01/02/19 08:00 01/02/19 08:00 01/02/19 08:00 01/02/19 09:40 01/02/19 08:00 Intake and Output: 01/02/19 01/02/19 06:59 18:59 Intake Total 250 Balance 250 - Medications Medications: Current Medications Albuterol/Ipratropium (Duoneb 3 Mg/0.5 Mg (3 Ml) Ud) 3 ml IH RQ6 PRN Clonazepam (Klonopin) 0.5 mg PO BID PRN PRN Reason: Anxiety Last Admin: 01/02/19 00:27 Dose: 0.5 mg Enoxaparin Sodium (Lovenox) 40 mg SC DAILY [facility] Last Admin: 01/02/19 09:41 Dose: 40 mg Famotidine (Pepcid) 20 mg PO DAILY [facility]; Protocol Last Admin: 01/02/19 09:40 Dose: 20 mg Furosemide (Lasix) 20 mg PO DAILY [facility] Last Admin: 01/02/19 09:40 Dose: 20 mg Guaifenesin (Robitussin) 200 mg PO Q4H PRN PRN Reason: Cough and congestion Home Med (Patient's Own Medication) 3 tab PO TIDCC [facility] Last Admin: 01/02/19 11:59 Dose: 3 tab Home Med (Patient's Own Medication) 1 tab PO QWK [facility] Last Admin: 01/02/19 11:15 Dose: 1 tab Azithromycin 500 mg/ Sodium (Chloride) 250 mls @ 250 mls/hr IVPB DAILY [facility]; Protocol Last Admin: 01/02/19 10:20 Dose: 250 mls/hr Ceftriaxone Sodium 1 gm/ (Sodium Chloride) 100 mls @ 100 mls/hr IVPB DAILY [facility]; Protocol Last Admin: 01/02/19 09:41 Dose: 100 mls/hr Ibuprofen (Motrin Tab) 400 mg PO Q6H PRN PRN Reason: MODERATE PAIN Loratadine (Claritin) 10 mg PO DAILY [facility] Last Admin: 01/02/19 09:40 Dose: 10 mg Losartan Potassium (Cozaar) 100 mg PO DAILY [facility] Last Admin: 01/02/19 09:39 Dose: 100 mg Montelukast Sodium (Singulair) 10 mg PO DAILY [facility] Last Admin: 01/02/19 09:39 Dose: 10 mg Paroxetine HCl (Paxil) 30 mg PO DAILY [facility] Last Admin: 01/02/19 09:40 Dose: 30 mg Potassium Chloride (Klor-Con 10) 10 meq PO DAILY [facility] Last Admin: 01/02/19 09:40 Dose: 10 meq - Labs Labs: 12/31/18 19:19 12/31/18 19:19 PT 13.7 SECONDS (9.7-12.2) H 12/31/18 19: INR 1.3 12/31/18 19:19 APTT 31.8 SECONDS (21-34) 12/31/18 19:19
--- NOTE | 2019-01-03 01:23 | HP ---
CHIEF COMPLAINT: Abdominal pain and cough x2 days. HISTORY OF PRESENT ILLNESS: This is an 83-year-old female, well known to me with history of interstitial lung disease, on home oxygen nebulizer, hypertension, hyperlipidemia. She developed left lower quadrant abdominal pain four days ago and the patient has history of diverticulitis and she has been getting treatment for that. Treatment failed, the patient did not feel better and she came to emergency room and she was hospitalized. The patient along with left lower quadrant abdominal blood or mucus per rectum. She denies any history of constipation, obstipation. She also has cough, congestion, shortness of breath, wheezing, chills, rigors, body aches, tiredness, anorexia, malaise and fatigue. She denies any hemoptysis. The patient denies any orthopnea or PND but she has dyspnea on exertion. There is no history of fever, chills, or rigor. There is no history of trauma, fall, or loss of consciousness. There is no history of seizure like activity. She denied any tingling, numbness, or paresthesias upper and lower extremities. She denies any joint pain or hip pain. CURRENT MEDICATIONS: She is on Fosamax, Anoro Ellipta, Mobic, Zantac, Klonopin, K-Dur, Lasix, Ventolin, DuoNeb, Cozaar, Esbriet XL and Xyzal. PAST MEDICAL HISTORY: Diabetes, hypertension, allergic rhinitis, interstitial lung disease. SOCIAL HISTORY: She is a nonsmoker, non-EtOH user. PHYSICAL EXAMINATION: GENERAL: An elderly female, in mild respiratory distress. VITAL SIGNS: Blood pressure 175/79, pulse 85, respiratory rate 20, and temperature 98.3. SKIN: Senile turgor, no bruises, no purpura, no petechiae. No ecchymosis. HEENT: Atraumatic and normocephalic. Negative pallor. Negative jaundice. Extraocular movements are intact. NECK: Supple. No JVD. No lymph node. No accessory muscle use. LUNGS: Bilateral decreased air entry. Bilateral rales and rhonchi. CARDIOVASCULAR SYSTEM: S1 and S2. Regular. No heave. No thrill. ABDOMEN: Soft and nontender. Bowel sound are positive. RECTAL: No masses. No bleeding EXTREMITIES: No clubbing, cyanosis, or edema. CENTRAL NERVOUS SYSTEMS: Awake, alert, and oriented x3. ASSESSMENT: 1. History of diverticulosis. 2. Pneumonia bilateral. 3. Interstitial lung disease. 4. Hypertension. PLAN: Admit. Detailed orders are written. Seen and examined. Andres Concepcion MD
[2019-01-03] MEDS: ESBRIET PO SCH ×3 (08:38→17:58)
[2019-01-03] MEDS: Potassium Chloride 10 mEq ER Tab PO SCH (09:44)
[2019-01-03] MEDS: Enoxaparin 40 mg Syringe SC SCH (09:45)
[2019-01-03] MEDS: Azithromycin 500 MG in Sodium Chloride 0.9% 250 ML IVPB SCH (10:57)
--- NOTE | 2019-01-03 18:08 | CP.PCM.PN ---
Subjective - Date & Time of Evaluation Date of Evaluation: 01/03/19 Time of Evaluation: 10:20 - Subjective Subjective: Patient seen and examined Denies shortness of breath, denies cough, denies fever chills Abdominal pain much improved Objective - Vital Signs/Intake and Output Vital Signs (last 24 hours): Temp Pulse Resp BP Pulse Ox 97.4 F L 84 20 170/67 H 93 L 01/03/19 16:00 01/03/19 16:00 01/03/19 16:00 01/03/19 16:00 01/03/19 16:00 Intake and Output: 01/03/19 01/03/19 06:59 18:59 Intake Total 860 830 Balance 860 830 - Medications Medications: Current Medications Albuterol/Ipratropium (Duoneb 3 Mg/0.5 Mg (3 Ml) Ud) 3 ml IH RQ6 PRN Last Admin: 01/02/19 20:25 Dose: 3 ml Clonazepam (Klonopin) 0.5 mg PO BID PRN PRN Reason: Anxiety Last Admin: 01/02/19 00:27 Dose: 0.5 mg Enoxaparin Sodium (Lovenox) 40 mg SC DAILY [facility] Last Admin: 01/03/19 09:45 Dose: 40 mg Famotidine (Pepcid) 20 mg PO DAILY [facility]; Protocol Last Admin: 01/03/19 09:44 Dose: 20 mg Furosemide (Lasix) 20 mg PO DAILY [facility] Last Admin: 01/03/19 09:45 Dose: 20 mg Guaifenesin (Robitussin) 200 mg PO Q4H PRN PRN Reason: Cough and congestion Home Med (Patient's Own Medication) 3 tab PO TIDCC [facility] Last Admin: 01/03/19 17:58 Dose: 3 tab Home Med (Patient's Own Medication) 1 tab PO QWK [facility] Last Admin: 01/02/19 11:15 Dose: 1 tab Azithromycin 500 mg/ Sodium (Chloride) 250 mls @ 250 mls/hr IVPB DAILY [facility]; Protocol Last Admin: 01/03/19 10:57 Dose: 250 mls/hr Ceftriaxone Sodium 1 gm/ (Sodium Chloride) 100 mls @ 100 mls/hr IVPB DAILY [facility]; Protocol Last Admin: 01/03/19 09:42 Dose: 100 mls/hr Ibuprofen (Motrin Tab) 400 mg PO Q6H PRN PRN Reason: MODERATE PAIN Loratadine (Claritin) 10 mg PO DAILY [facility] Last Admin: 01/03/19 09:45 Dose: 10 mg Losartan Potassium (Cozaar) 100 mg PO DAILY [facility] Last Admin: 01/03/19 09:44 Dose: 100 mg Montelukast Sodium (Singulair) 10 mg PO DAILY [facility] Last Admin: 01/03/19 09:44 Dose: 10 mg Paroxetine HCl (Paxil) 30 mg PO DAILY [facility] Last Admin: 01/03/19 09:44 Dose: 30 mg Potassium Chloride (Klor-Con 10) 10 meq PO DAILY [facility] Last Admin: 01/03/19 09:44 Dose: 10 meq - Labs Labs: 12/31/18 19:19 12/31/18 19:19 PT 13.7 SECONDS (9.7-12.2) H 12/31/18 19:19 INR 1.3 12/31/18 19:19 APTT 31.8 SECONDS (21-34) 12/31/18 19:19 - Head Exam Head Exam: ATRAUMATIC, NORMOCEPHALIC - ENT Exam ENT Exam: Mucous Membranes Moist - Neck Exam Neck Exam: Normal Inspection - Respiratory Exam Respiratory Exam: Rales - Cardiovascular Exam Cardiovascular Exam: REGULAR RHYTHM - GI/Abdominal Exam GI & Abdominal Exam: Soft, Normal Bowel Sounds - Extremities Exam Extremities Exam: Full ROM, Normal Inspection - Neurological Exam Neurological Exam: Alert, Oriented x3 Assessment and Plan (1) COPD (chronic obstructive pulmonary disease) with acute bronchitis Assessment & Plan: Continue present treatment Unlikely pneumonia Treat for urinary tract infection Status: Acute (2) IPF (idiopathic pulmonary fibrosis) Status: Chronic (3) Abdominal pain Status: Acute
--- NOTE | 2019-01-04 03:56 | CP.PCM.PN ---
Subjective - Date & Time of Evaluation Date of Evaluation: 01/03/19 Time of Evaluation: 07:40 - Subjective Subjective: dict Objective - Vital Signs/Intake and Output Vital Signs (last 24 hours): Temp Pulse Resp BP Pulse Ox 976.9 F H 83 20 159/72 H 96 01/03/19 23:41 01/03/19 23:41 01/03/19 23:41 01/03/19 23:41 01/03/19 23:41 Intake and Output: 01/03/19 01/04/19 18:59 06:59 Intake Total 830 400 Balance 830 400 - Medications Medications: Current Medications Albuterol/Ipratropium (Duoneb 3 Mg/0.5 Mg (3 Ml) Ud) 3 ml IH RQ6 PRN Last Admin: 01/02/19 20:25 Dose: 3 ml Clonazepam (Klonopin) 0.5 mg PO BID PRN PRN Reason: Anxiety Last Admin: 01/02/19 00:27 Dose: 0.5 mg Enoxaparin Sodium (Lovenox) 40 mg SC DAILY [facility] Last Admin: 01/03/19 09:45 Dose: 40 mg Famotidine (Pepcid) 20 mg PO DAILY [facility]; Protocol Last Admin: 01/03/19 09:44 Dose: 20 mg Furosemide (Lasix) 20 mg PO DAILY [facility] Last Admin: 01/03/19 09:45 Dose: 20 mg Guaifenesin (Robitussin) 200 mg PO Q4H PRN PRN Reason: Cough and congestion Home Med (Patient's Own Medication) 3 tab PO TIDCC [facility] Last Admin: 01/03/19 17:58 Dose: 3 tab Home Med (Patient's Own Medication) 1 tab PO QWK [facility] Last Admin: 01/02/19 11:15 Dose: 1 tab Hydrochlorothiazide (Microzide) 12.5 mg PO DAILY [facility] Last Admin: 01/03/19 19:31 Dose: 12.5 mg Azithromycin 500 mg/ Sodium (Chloride) 250 mls @ 250 mls/hr IVPB DAILY [facility]; [facility] Last Admin: 01/03/19 10:57 Dose: 250 mls/hr Ceftriaxone Sodium 1 gm/ (Sodium Chloride) 100 mls @ 100 mls/hr IVPB DAILY [facility]; Protocol Last Admin: 01/03/19 09:42 Dose: 100 mls/hr Ibuprofen (Motrin Tab) 400 mg PO Q6H PRN PRN Reason: MODERATE PAIN Loratadine (Claritin) 10 mg PO DAILY [facility] Last Admin: 01/03/19 09:45 Dose: 10 mg Losartan Potassium (Cozaar) 100 mg PO DAILY [facility] Last Admin: 01/03/19 09:44 Dose: 100 mg Montelukast Sodium (Singulair) 10 mg PO DAILY [facility] Last Admin: 01/03/19 09:44 Dose: 10 mg Paroxetine HCl (Paxil) 30 mg PO DAILY [facility] Last Admin: 01/03/19 09:44 Dose: 30 mg Potassium Chloride (Klor-Con 10) 10 meq PO DAILY [facility] Last Admin: 01/03/19 09:44 Dose: 10 meq - Labs Labs: 12/31/18 19:19 12/31/18 19: PT 13.7 SECONDS (9.7-12.2) H 12/31/18: INR 1.3 12/31/18: APTT 31.8 SECONDS (21-34) 12/31/18 19:19
--- NOTE | 2019-01-04 07:03 | PN ---
DATE: 01/04/2019 SUBJECTIVE: The patient is less short of breath, less cough, less wheezing. No nausea or vomiting. Blood pressure went down. PHYSICAL EXAMINATION: VITAL SIGNS: Blood pressure before was 170/67, pulse 64, respiratory rate 20, temperature 97.4. LUNGS: Decreased air entry. Bilateral crackles. CARDIOVASCULAR SYSTEM: S1 and S2, regular. ABDOMEN: Soft. ASSESSMENT: 1. Left lower quadrant pain, resolved. 2. Chronic obstructive pulmonary disease. 3. Pneumonia. 4. Hypertension. PLAN: Continue current medication. Monitor patient. Andres Concepcion MD
[2019-01-04] MEDS: Potassium Chloride 10 mEq ER Tab PO SCH (10:25)
[2019-01-04] MEDS: Enoxaparin 40 mg Syringe SC SCH (10:26)
[2019-01-04] MEDS: Azithromycin 500 MG in Sodium Chloride 0.9% 250 ML IVPB SCH (10:27)
[2019-01-04] MEDS: ESBRIET PO SCH ×2 (10:32→14:16)
--- NOTE | 2019-01-04 14:59 | CP.PCM.PN ---
Subjective - Date & Time of Evaluation Date of Evaluation: 01/04/19 Time of Evaluation: 12:00 - Subjective Subjective: Patient seen and examined Sitting comfortably in no distress Complaining of sneezing Denies cough or shortness of breath Objective - Vital Signs/Intake and Output Vital Signs (last 24 hours): Temp Pulse Resp BP Pulse Ox 97.7 F 75 20 148/87 95 01/04/19 07:00 01/04/19 07:00 01/04/19 07:00 01/04/19 10:26 01/04/19 07:00 Intake and Output: 01/04/19 01/04/19 06:59 18:59 Intake Total 600 Balance 600 - Medications Medications: Current Medications Albuterol/Ipratropium (Duoneb 3 Mg/0.5 Mg (3 Ml) Ud) 3 ml IH RQ6 PRN Last Admin: 01/02/19 20:25 Dose: 3 ml Clonazepam (Klonopin) 0.5 mg PO BID PRN PRN Reason: Anxiety Last Admin: 01/02/19 00:27 Dose: 0.5 mg Enoxaparin Sodium (Lovenox) 40 mg SC DAILY [facility] Last Admin: 01/04/19 10:26 Dose: 40 mg Famotidine (Pepcid) 20 mg PO DAILY [facility]; Protocol Last Admin: 01/04/19 10:25 Dose: 20 mg Furosemide (Lasix) 20 mg PO DAILY [facility] Last Admin: 01/04/19 10:26 Dose: 20 mg Guaifenesin (Robitussin) 200 mg PO Q4H PRN PRN Reason: Cough and congestion Home Med (Patient's Own Medication) 3 tab PO TIDCC [facility] Last Admin: 01/04/19 14:16 Dose: 3 tab Home Med (Patient's Own Medication) 1 tab PO QWK [facility] Last Admin: 01/02/19 11:15 Dose: 1 tab Hydrochlorothiazide (Microzide) 12.5 mg PO DAILY [facility] Last Admin: 01/04/19 10:25 Dose: 12.5 mg Azithromycin 500 mg/ Sodium (Chloride) 250 mls @ 250 mls/hr IVPB DAILY [facility]; Protocol Last Admin: 01/04/19 10:27 Dose: 250 mls/hr Ceftriaxone Sodium 1 gm/ (Sodium Chloride) 100 mls @ 100 mls/hr IVPB DAILY [facility]; Protocol Last Admin: 01/04/19 10:26 Dose: 100 mls/hr Ibuprofen (Motrin Tab) 400 mg PO Q6H PRN PRN Reason: MODERATE PAIN Loratadine (Claritin) 10 mg PO DAILY [facility] Last Admin: 01/04/19 10:25 Dose: 10 mg Losartan Potassium (Cozaar) 100 mg PO DAILY [facility] Last Admin: 01/04/19 10:25 Dose: 100 mg Montelukast Sodium (Singulair) 10 mg PO DAILY [facility] Last Admin: 01/04/19 10:25 Dose: 10 mg Paroxetine HCl (Paxil) 30 mg PO DAILY [facility] Last Admin: 01/04/19 10:42 Dose: 30 mg Potassium Chloride (Klor-Con 10) 10 meq PO DAILY [facility] Last Admin: 01/04/19 10:25 Dose: 10 meq - Labs Labs: 12/31/18 19:19 12/31/18 19:19 PT 13.7 SECONDS (9.7-12.2) H 12/31/18 19:19 INR 1.3 12/31/18 19:19 APTT 31.8 SECONDS (21-34) 12/31/18 19:19 - Head Exam Head Exam: ATRAUMATIC, NORMOCEPHALIC - Eye Exam Eye Exam: Normal appearance - ENT Exam ENT Exam: Mucous Membranes Moist - Neck Exam Neck Exam: Normal Inspection - Respiratory Exam Respiratory Exam: Rales - Cardiovascular Exam Cardiovascular Exam: REGULAR RHYTHM - GI/Abdominal Exam GI & Abdominal Exam: Soft, Normal Bowel Sounds (Recovery:) - Extremities Exam Extremities Exam: Normal Inspection - Neurological Exam Neurological Exam: Awake Assessment and Plan (1) COPD (chronic obstructive pulmonary disease) with acute bronchitis Assessment & Plan: Stable from pulmonary standpoint Prednisone and nebulizer treatment Continue medications for IPF Home oxygen Status: Acute (2) Abdominal pain Status: Acute (3) IPF (idiopathic pulmonary fibrosis) Status: Chronic
[2019-01-04 15:51] VITALS: BP 127/70; PULSE 70; TEMP 97.4; O2SAT 98
--- NOTE | 2019-01-04 21:11 | CP.PCM.DIS ---
Provider - Provider Date of Admission: 12/31/18 22:56 Attending physician: Andres Concepcion MD Consults: 01/01/19 01:51 Case Management Referral Routine Comment: Physician Instructions: Reason For Exam: Reason for Referral: [facility] Eval 01/01/19 10:00 Inpatient [facility] Core Measures Referral Routine Comment: please eval Physician Instructions: Reason For Exam: for eval Social Work Referral Routine Comment: please eval Physician Instructions: Reason For Exam: gabriella score=11 01/01/19 15:00 Pulmonology Consult Routine Comment: Consulting Provider: Yassine Basilio Consulting Physician: Yassine Basilio Reason for Consult: pneumonia Time Spent in preparation of Discharge (in minutes): 30 Hospital Course - Lab Results Lab Results: Micro Results 01/01/19 06:41 Blood Blood Culture - Preliminary NO GROWTH AFTER 3 DAYS 01/01/19 06:40 Blood Blood Culture - Preliminary NO GROWTH AFTER 3 DAYS Most Recent Lab Values WBC 8.1 K/uL (4.8-10.8) 12/31/18 19:19 RBC 3.96 Mil/uL (3.80-5.20) 12/31/18 19:19 Hgb 11.2 g/dL (11.0-16.0) 12/31/18 19: Hct 34.3 % (34.0-47.0) 12/31/18 19: MCV 86.7 fL (81.0-99.0) D 12/31/18 19: MCH 28.3 pg (27.0-31.0) 12/31/18 19: MCHC 32.7 g/dL (33.0-37.0) L 12/31/18 19:19 RDW 17.9 % (11.5-14.5) H 12/31/18 19:19 Plt Count 292 K/uL (130-400) 12/31/18 19:19 MPV 7.5 fL (7.2-11.7) 12/31/18 19:19 Neut % (Auto) 74.7 % (50.0-75.0) 12/31/18 19:19 Lymph % (Auto) 14.3 % (20.0-40.0) L 12/31/18 19:19 [place] % (Auto) 8.3 % (0.0-10.0) 12/31/18 19:19 Eos % (Auto) 2.1 % (0.0-4.0) 12/31/18 19: Baso % (Auto) 0.6 % (0.0-2.0) 12/31/18 19:19 Neut # (Auto) 6.1 K/uL (1.8-7.0) 12/31/18 19: Lymph # (Auto) 1.2 K/uL (1.0-4.3) 12/31/18 19: [place] # (Auto) 0.7 K/uL (0.0-0.8) 12/31/18 19: Eos # (Auto) 0.2 K/uL (0.0-0.7) 12/31/18 19: Baso # (Auto) 0.0 K/uL (0.0-0.2) 12/31/18 19: PT 13.7 SECONDS (9.7-12.2) H 12/31/18: INR 1.3 12/31/18 19: APTT 31.8 SECONDS (21-34) 12/31/18 19:19 Sodium 139 mmol/L (132-148) 12/31/18 19: Potassium 3.8 mmol/L (3.6-5.2) 12/31/18 19:19 Chloride 103 mmol/L (98-107) 12/31/18 19: Carbon Dioxide 28 mmol/L (22-30) 12/31/18: Anion Gap 12 (10-20) 12/31/18 19:19 BUN 17 mg/dL (7-17) 12/31/18 19:19 Creatinine 0.8 mg/dL (0.7-1.2) 12/31/18 19:19 Est GFR ( Amer) > 60 12/31/18 19:19 Est GFR (Non-Af Amer) > 60 12/31/18 19:19 Random Glucose 141 mg/dL (65-105) H 12/31/18 19:19 Calcium 8.2 mg/dl (8.6-10.4) L 12/31/18 19:19 Total Bilirubin 0.1 mg/dL (0.2-1.3) L 12/31/18 19: AST 18 U/L (14-36) 12/31/18 19: ALT 12 U/L (9-52) 12/31/18 19: Alkaline Phosphatase 67 U/L (38-126) 12/31/18 19: Total Protein 6.5 g/dL (6.3-8.3) 12/31/18: Albumin 3.5 g/dL (3.5-5.0) 12/31/18: Globulin 3.1 gm/dL (2.2-3.9) 12/31/18: Albumin/Globulin Ratio 1.1 (1.0-2.1) 12/31/18: Lipase 15 U/L (23-300) L 12/31/18 19: Urine Color Yellow (YELLOW) 01/02/19 04:51 Urine Clarity Clear (Clear) 01/02/19 04:51 Urine pH 6.0 (5.0-8.0) 01/02/19 04:51 Ur Specific [place] 1.011 (1.003-1.030) 01/02/19 04:51 Urine Protein Negative mg/dL (NEGATIVE) 01/02/19 04:51 Urine Glucose (UA) Normal mg/dL (Normal) 01/02/19 04:51 Urine Ketones Negative mg/dL (NEGATIVE) 01/02/19 04:51 Urine Blood Negative (NEGATIVE) 01/02/19 04:51 Urine Nitrate Negative (NEGATIVE) 01/02/19 04:51 Urine Bilirubin Negative (NEGATIVE) 01/02/19 04:51 Urine Urobilinogen Normal mg/dL (0.2-1.0) 01/02/19 04:51 Ur Leukocyte Esterase Neg Richard/uL (Negative) 01/02/19 04:51 Urine WBC (Auto) 1 /hpf (0-5) 01/02/19 04:51 Urine RBC (Auto) < 1 /hpf (0-3) 01/02/19 04:51 Ur Squamous Epith Cells 1 /hpf (0-5) 01/02/19 04:51 Urine Bacteria Rare (<OCC) 01/02/19 04:51 Discharge Exam - Head Exam Head Exam: ATRAUMATIC, NORMOCEPHALIC Discharge Plan - Follow Up Plan Condition: GOOD Disposition: HOME/ ROUTINE Instructions: Pneumonia, Adult (DC), Acute Abdomen (Belly Pain), Adult (DC) Referrals: Andres Concepcion MD [Staff Provider] -
--- NOTE | 2019-01-05 05:57 | DS ---
DISCHARGE DIAGNOSES: 1. Tracheobronchitis. 2. Interstitial lung disease. 3. Hypertension. 4. Left-sided abdominal pain. HISTORY OF PRESENT ILLNESS AND HOSPITAL COURSE: This is an 83-year-old female with history of interstitial lung disease, on home oxygen and nebulizer treatment; hypertension; hyperlipidemia; and osteoarthritis. She is compliant with diet, medication and followup. She is on home oxygen. She came in because of left lower quadrant abdominal pain, and she was found to have infiltrates in the lung which turned out to be chronic. The patient was treated with antibiotics, Solu-Medrol, oxygen, and nebulizer treatment. The patient did well and she is for discharge. Condition upon discharge is stable. PHYSICAL EXAMINATION: VITAL SIGNS: Blood pressure 127/70, pulse 70, respiratory rate 20, temperature 97.4. LUNGS: Decreased air entry. Positive rales. CARDIOVASCULAR SYSTEM: S1 and S2, regular. ABDOMEN: Soft. PLAN: Discharge the patient. Monitor the patient. Andres Concepcion MD
== END 2019-01-04 16:37 | disposition home or self-care (01) | DRG 190 ==
LOC: C.ER 17:51 → C.9E 22:56 → C.3T 23:29 → C.5S 01-02 15:15 → C.3T 01-02 15:20
PROVIDERS: ADMIT Internal Medicine; ATTEND Internal Medicine
DX: J43.9 Emphysema, unspecified (principal); J18.9 Pneumonia, unspecified organism; J84.112 Idiopathic pulmonary fibrosis; N39.0 Urinary tract infection, site not specified; K57.92 Diverticulitis of intestine, part unspecified, without perforation or abscess without bleeding; J98.11 Atelectasis; J20.9 Acute bronchitis, unspecified; I10 Essential (primary) hypertension; E11.9 Type 2 diabetes mellitus without complications; E78.00 Pure hypercholesterolemia, unspecified; E78.5 Hyperlipidemia, unspecified; K21.9 Gastro-esophageal reflux disease without esophagitis; Z99.81 Dependence on supplemental oxygen; G47.00 Insomnia, unspecified; M81.0 Age-related osteoporosis without current pathological fracture; Z87.01 Personal history of pneumonia (recurrent); Z87.440 Personal history of urinary (tract) infections; Z90.710 Acquired absence of both cervix and uterus